=== PATIENT | female | born 1945 | race Caucasian/White ===

== ENCOUNTER 2019-04-02 11:03 | Emergency (ER) | payer MEDICARE ==
[2019-04-02] MEDS ORDERED: Sodium Chloride 0.9% 2.5 ML Syringe FLUSH PRN (11:05)
[2019-04-02] MEDS ORDERED: Sodium Chloride 0.9% 10 ML Syringe FLUSH PRN (11:05)
--- NOTE | 2019-04-02 11:12 | EDM.PDOC ---
ED HPI GENERAL MEDICAL PROBLEM - General Chief Complaint: Chest Pain Stated Complaint: CHEST PAIN , SHORTNESS OF BREATH Time Seen by Provider: 04/02/19 11:05 Source of Information: Reports: Patient History Limitations: Reports: No Limitations - History of Present Illness INITIAL COMMENTS - FREE TEXT/NARRATIVE: History of present illness: []Patient had a left-sided sharp chest pain that lasted about a minute at 6 AM this morning. Patient has not had any recurrent pain and is pain-free. She states she's had these before and this was not any different, however, she recently lost her and is now is with her family who made her come in. She denies any shortness of breath. Patient states her daughter brought her to the [place] last night and she found it exhausting walking in such a large place. Review of systems: As per history of present illness and below otherwise all systems reviewed and negative. Past medical history: As per history of present illness and as reviewed below otherwise noncontributory. Surgical history: As per history of present illness and as reviewed below otherwise noncontributory. Social history: No reported history of drug or alcohol abuse. Family history: As per history of present illness and as reviewed below otherwise noncontributory. Physical exam: General: Well developed, thin in NAD HEENT: Atraumatic, normocephalic, pupils reactive, negative for conjunctival pallor or scleral icterus, mucous membranes moist, throat clear, neck supple, nontender, trachea midline. Lungs: Clear to auscultation, breath sounds equal bilaterally, chest nontender. No reproducible tenderness and no rhonchi Heart: S1S2, regular, negative for clicks, rubs, or JVD. Abdomen: NABS, Soft, nondistended, nontender with no rebound or guarding. Negative for masses or hepatosplenomegaly. Negative for costovertebral tenderness. Pelvis: Stable nontender. Genitourinary: Deferred. Rectal: Deferred. Extremities: Atraumatic, negative for cords or calf pain. Neurovascular unremarkable. Neuro: Awake, alert, oriented. Cranial nerves II through XII unremarkable. Cerebellum unremarkable. Motor and sensory unremarkable throughout. Exam nonfocal. Skin:warm and dry Diagnostics: EKG, chest x-ray, CBC, chemistry, UA, troponin Therapeutics: None ED Course: Stable Impression: Chest pain, UTI Prescriptions: Bactrim Plan: Take meds as directed, follow up with your primary care physician, return to ER if symptoms worsen or change. Definitive disposition and diagnosis as appropriate pending reevaluation and review of above. - Related Data Allergies Allergy/AdvReac Type Severity Reaction Status Date / Time No Known Allergies Allergy Verified 04/02/19 11:12 Home Meds: Home Meds Multivitamin [Multi-Vitamin Daily] 1 tab DAILY 04/02/19 [History] Papaya [Papaya Enzyme] 1 each PO DAILY 04/02/19 [History] Rivaroxaban [Xarelto] 15 mg PO DAILY 04/02/19 [History] Sulfamethoxazole/Trimethoprim [Bactrim Ds Tablet] 1 each PO BID #20 tablet 04/02 [Rx] guaiFENesin [Guaifenesin] 400 mg PO DAILY 04/02/19 [History] ED ROS GENERAL - Review of Systems Review Of Systems: See Below ED EXAM, GENERAL - Physical Exam Exam: See Below Course - Vital Signs Last Recorded V/S: Last Vital Signs Temp 96.9 F 04/02/19 11:10 Pulse 86 04/02/19 11:31 Resp 17 04/02/19 11:31 BP 113/76 04/02/19 11:31 Pulse Ox 96 04/02/19 11:31 - Orders/Labs/Meds Orders: Active Orders 24 hr Category Date Time Status Cardiac Monitoring [RC] . DIRECTED Care 04/02/19 11:05 Active EKG 12 Lead [EKG Documentation Completion] [RC] STAT Care 04/02/19 11:34 Active B-TYPE NATRIURETIC PEPTIDE,BNP [CHEM] Stat Lab 04/02/19 11:20 Received Sodium Chloride 0.9% [Saline Flush] Med 04/02/19 11:05 Active 10 ml FLUSH ASDIRECTED PRN Sodium Chloride 0.9% [Saline Flush] Med 04/02/19 11:05 Active 2.5 ml FLUSH ASDIRECTED PRN Saline Lock Insert [OM.PC] Stat Oth 04/02/19 11:05 Ordered Medication Orders Sodium Chloride (Saline Flush) 10 ml FLUSH ASDIRECTED PRN PRN Reason: Keep Vein Open Sodium Chloride (Saline Flush) 2.5 ml FLUSH ASDIRECTED PRN PRN Reason: Keep Vein Open Labs: Laboratory Tests 04/02/19 04/02/19 04/02/19 Range/Units 11:20 11:20 11:55 WBC 21.71 H (4.0-11.0) K/uL RBC 4.85 (4.30-5.90) M/uL Hgb 15.3 (12.0-16.0) g/dL Hct 46.2 H (36.0-46.0) % MCV 95.3 (80.0-98.0) fL MCH 31.5 (27.0-32.0) pg MCHC 33.1 (31.0-37.0) g/dL RDW Std Deviation 50.3 (28.0-62.0) fl RDW Coeff of Omar 14 (11.0-15.0) % Plt Count 296 (150-400) K/uL MPV 10.60 (7.40-12.00) fL Neut % (Auto) 83.8 H (48.0-80.0) % Lymph % (Auto) 10.2 L (16.0-40.0) % [place] % (Auto) 5.8 (0.0-15.0) % Eos % (Auto) 0.0 (0.0-7.0) % Baso % (Auto) 0.2 (0.0-1.5) % Neut # (Auto) 18.2 H (1.4-5.7) K/uL Lymph # (Auto) 2.2 (0.6-2.4) K/uL [place] # (Auto) 1.3 H (0.0-0.8) K/uL Eos # (Auto) 0.0 (0.0-0.7) K/uL Baso # (Auto) 0.0 (0.0-0.1) K/uL Nucleated RBC % 0.0 /100WBC Nucleated RBCs # 0 K/uL Sodium 141 (136-145) mmol/L Potassium 3.7 (3.5-5.1) mmol/L Chloride 103 (98-107) mmol/L Carbon Dioxide 26.7 (21.0-32.0) mmol/L BUN 24 H (7.0-18.0) mg/dL Creatinine 0.8 (0.6-1.0) mg/dL Est Cr Clr Drug Dosing 34.87 mL/min Estimated GFR (MDRD) > 60.0 ml/min Glucose 150 H (74-106) mg/dL Calcium 9.6 (8.5-10.1) mg/dL Total Bilirubin 1.1 H (0.2-1.0) mg/dL AST 27 (15-37) IU/L ALT 37 (14-63) IU/L Alkaline Phosphatase 86 (46-116) U/L Troponin I < 0.050 (0.000-0.056) ng/mL Total Protein 7.2 (6.4-8.2) g/dL Albumin 3.4 (3.4-5.0) g/dL Globulin 3.8 (2.6-4.0) g/dL Albumin/Globulin Ratio 0.9 (0.9-1.6) Urine Color YELLOW Urine Appearance SLT CLOUDY Urine pH 5.5 (5.0-8.0) Ur Specific [place] >= 1.030 (1.001-1.035) Urine Protein TRACE H (NEGATIVE) mg/dL Urine Glucose (UA) NEGATIVE (NEGATIVE) mg/dL Urine Ketones NEGATIVE (NEGATIVE) mg/dL Urine Occult Blood TRACE-INTACT H (NEGATIVE) Urine Nitrite NEGATIVE (NEGATIVE) Urine Bilirubin SMALL H (NEGATIVE) Urine Ictotest NEGATIVE Urine Urobilinogen 1.0 (<2.0) EU/dL Ur Leukocyte Esterase SMALL H (NEGATIVE) Urine RBC 1-3 (0-2/HPF) Urine WBC 15-20 (0-5/HPF) Ur Epithelial Cells MANY (NONE-FEW) Amorphous Sediment MODERATE (NEGATIVE) Urine Bacteria 1+ H (NEGATIVE) Urine Mucus MODERATE (NONE-MOD) Meds: Medications Generic Name Dose Route Start Last Admin Trade Name Freq PRN Reason Stop Dose Admin Sodium Chloride 10 ml 04/02/19 11:05 Saline Flush FLUSH ASDIRECTED PRN Keep Vein Open Sodium Chloride 2.5 ml 04/02/19 11:05 Saline Flush FLUSH ASDIRECTED PRN Keep Vein Open Departure - Departure Time of Disposition: 12:27 Disposition: Home, Self-Care 01 Condition: Good Clinical Impression: UTI (urinary tract infection) Qualifiers: Urinary tract infection type: site unspecified Hematuria presence: without hematuria Qualified Code(s): N39.0 - Urinary tract infection, site not specified Prescriptions: Sulfamethoxazole/Trimethoprim [Bactrim Ds Tablet] 1 each PO BID #20 tablet Referrals: PCP,Not In Area [Primary Care Provider] - Forms: ED Department Discharge Additional Instructions: The following information is given to patients seen in the emergency department who are being discharged to home. This information is to outline your options for follow-up care. We provide all patients seen in our emergency department with a follow-up referral. The need for follow-up, as well as the timing and circumstances, are variable depending upon the specifics of your emergency department visit. If you don't have a primary care physician on staff, we will provide you with a referral. We always advise you to contact your personal physician following an emergency department visit to inform them of the circumstance of the visit and for follow-up with them and/or the need for any referrals to a consulting specialist. The emergency department will also refer you to a specialist when appropriate. This referral assures that you have the opportunity for follow-up care with a specialist. All of these measure are taken in an effort to provide you with optimal care, which includes your follow-up. Under all circumstances we always encourage you to contact your private physician who remains a resource for coordinating your care. When calling for follow-up care, please make the office aware that this follow-up is from your recent emergency room visit. If for any reason you are refused follow-up, please contact the [facility] Emergency Department at and asked to speak to the emergency department charge nurse. Take meds as directed, follow up with your primary care physician, return to ER if symptoms worsen or change. Drink more fluids. [facility] [address] [place] [id number] - My Orders Last 24 Hours: My Active Orders 04/02/19 11:05 Cardiac Monitoring [RC] . DIRECTED Sodium Chloride 0.9% [Saline Flush] 10 ml FLUSH ASDIRECTED PRN Sodium Chloride 0.9% [Saline Flush] 2.5 ml FLUSH ASDIRECTED PRN Saline Lock Insert [OM.PC] Stat 04/02/19 11:20 B-TYPE NATRIURETIC PEPTIDE,BNP [CHEM] Stat 04/02/19 11:34 EKG 12 Lead [EKG Documentation Completion] [RC] STAT - Assessment/Plan Last 24 Hours: My Active Orders 04/02/19 11:05 Cardiac Monitoring [RC] . DIRECTED Sodium Chloride 0.9% [Saline Flush] 10 ml FLUSH ASDIRECTED PRN Sodium Chloride 0.9% [Saline Flush] 2.5 ml FLUSH ASDIRECTED PRN Saline Lock Insert [OM.PC] Stat 04/02/19 11:20 B-TYPE NATRIURETIC PEPTIDE,BNP [CHEM] Stat 04/02/19 11:34 EKG 12 Lead [EKG Documentation Completion] [RC] STAT
--- NOTE | 2019-04-02 12:11 | CR ---
Pain shortness of breath Portable chest. COMPARISON: No comparison studies are available. Findings: Normal cardiac and mediastinal silhouette. Lungs appear hyperinflated. No acute airspace or interstitial process. No effusion. No pneumothorax. IMPRESSION: 1. No acute pulmonary process. Dictated by Tonya Ibarra MD @ Apr 02 2019 12:09PM Signed by Dr. Tonya Ibarra @ Apr 02 2019 12:10PM
[2019-04-02 12:16] LABS: BLOOD UREA NITROGEN,BUN 24 mg/dL (7.0-18.0); CARBON DIOXIDE,CO2 26.7 mmol/L (21.0-32.0); CHLORIDE,CL 103 mmol/L (98-107); GLUCOSE RANDOM 150 mg/dL (74-106); POTASSIUM,K 3.7 mmol/L (3.5-5.1); SODIUM,NA 141 mmol/L (136-145)
== END 2019-04-02 12:40 | disposition home or self-care (01) ==
LOC: MW.ED 11:03
DX: N39.0 Urinary tract infection, site not specified (principal); Z79.899 Other long term (current) drug therapy
CPT/HCPCS: 36415; 71045; 71045-26; 80053; 81001; 83880; 84484; 85025; 93005; 99283; 99285-25

== ENCOUNTER 2020-11-04 08:19 | Emergency (ER) | payer MEDICARE ==
[2020-11-04] MEDS ORDERED: Sodium Chloride 0.9% 10 ML Syringe FLUSH PRN (08:40)
[2020-11-04] MEDS ORDERED: Sodium Chloride 0.9% 2.5 ML Syringe FLUSH PRN (08:40)
[2020-11-04] MEDS ORDERED: methylPREDNISolone Sodium Succinate 40 MG/1 ML SDV IVPUSH ONE (08:41)
[2020-11-04] MEDS ORDERED: Albuterol HFA 18 Gm Inhaler INH PRN (08:42)
--- NOTE | 2020-11-04 08:46 | EDM.PDOC ---
ED HPI GENERAL MEDICAL PROBLEM - General Chief Complaint: Respiratory Problem Stated Complaint: SOB Time Seen by Provider: 11/04/20 08:24 - History of Present Illness INITIAL COMMENTS - FREE TEXT/NARRATIVE: 75-year-old female with a history of COPD history of A. fib on a blood thinner history of SC in the past who is presenting with shortness of breath. Patient does still smoke she recently completed treatment for lung cancer. She is visiting from [facility]. Over the last 3 days she has felt more short of breath than normal. She does have chronic hypoxic respiratory failure and is on 2 L nasal cannula baseline. Patient been taking her breathing treatments and inhalers they temporarily improve her symptoms but then she continues to feel more short of breath than normal. No chest pain no syncope or near syncope no nausea or vomiting no fever no productive cough. - Related Data Allergies Allergy/AdvReac Type Severity Reaction Status Date / Time No Known Allergies Allergy Verified 11/04/20 08:32 Home Meds: Home Meds Multivitamin [Multi-Vitamin Daily] 1 tab DAILY 04/02/19 [History] Papaya [Papaya Enzyme] 1 each PO DAILY 04/02/19 [History] Rivaroxaban [Xarelto] 15 mg PO DAILY 04/02/19 [History] Sulfamethoxazole/Trimethoprim [Bactrim Ds Tablet] 1 each PO BID #20 tablet 04/02/19 [Rx] guaiFENesin [Guaifenesin] 400 mg PO DAILY 04/02/19 [History] predniSONE 40 mg PO WITHBREAKFAST 4 Days #8 tab 11/04/20 [Rx] Past Medical History - Past Health History Medical/Surgical History: Denies Medical/Surgical History HEENT History: Reports: Hard of Hearing Cardiovascular History: Reports: SC, Other (See Below) Other Cardiovascular History: no stents Respiratory History: Reports: COPD, Other (See Below) Other Respiratory History: on 2liters 02 via nasal cannula; Lung [employer] History: Reports: Hematologic History: Reports: Anticoagulation Therapy, Other (See Below) Other Hematologic History: on xarelto - Past Surgical History HEENT Surgical History: Reports: Other (See Below) Other HEENT Surgeries/Procedures: ear surgery Respiratory Surgical History: Reports: None Social & Family History - Family History Family Medical History: No Pertinent Family History - Tobacco Use Tobacco Use Status *Q: Current Every Day Tobacco User Years of Tobacco use: 55 Packs/Tins Daily: 0.5 - Caffeine Use Caffeine Use: Reports: Coffee - Recreational Drug Use Recreational Drug Use: No ED ROS GENERAL - Review of Systems Review Of Systems: See Below Free Text/Narrative/Comment: General: No fever. Skin: No rash. Eyes: No vision problems. ENT: No sore throat. Neck: No neck stiffness. Respiratory: Per HPI Cardiac: No chest pain. Gastrointestinal: No nausea, vomiting or abdominal pain. Urinary: No dysuria. Musculoskeletal: No myalgias/arthralgias. Neurologic: No headache. ED EXAM, GENERAL - Physical Exam Exam: See Below Free Text/Narrative:: General Appearance: No acute distress, appears comfortable Skin: No rash HEENT: Normocephalic/atraumatic, sclera anicteric, mucous membranes moist Neck: Normal range of motion Chest and Lungs: Normal work of breathing, no tachypnea, prolonged expiratory phase with coarse diffuse expiratory wheezing Cardiovascular: Irregularly irregular rhythm, regular rate, intact distal perfusion, no murmur Abdomen: Soft, non-tender Back: Normal Musculoskeletal: No edema or tenderness Neurologic: Awake, alert, no obvious deficits, moving all extremities Psychiatric: Appropriate, cooperative #1 Interpretation EKG Date: 11/04/20 Time: 08:45 EKG Interpretation Comments: Atrial flutter with a ventricular rate of 73 normal axis and intervals no acute ischemia Course - Vital Signs Last Recorded V/S: Last Vital Signs Temp 96.6 F L 11/04/20 08:27 Pulse 84 11/04/20 08:27 Resp 20 11/04/20 08:27 BP 103/59 L 11/04/20 08:27 Pulse Ox 95 11/04/20 08:27 - Orders/Labs/Meds Orders: Active Orders 24 hr Category Date Time Status EKG Documentation Completion [RC] STAT Care 11/04/20 08:40 Active RT Post Treatment Assessment [RC] Click to Edit Care 11/04/20 08:42 Active RT Pre-Treatment Assessment [RC] Click to Edit Care 11/04/20 08:42 Active Albuterol [Ventolin HFA] Med 11/04/20 09:14 Active 0 gm INH Q2H PRN Sodium Chloride 0.9% [Saline Flush] Med 11/04/20 08:40 Active 10 ml FLUSH ASDIRECTED PRN Sodium Chloride 0.9% [Saline Flush] Med 11/04/20 08:40 Active 2.5 ml FLUSH ASDIRECTED PRN Saline Lock Insert [OM.PC] Stat Oth 11/04/20 08:40 Ordered Medication Orders Albuterol (Albuterol 8 Gm Inhaler) 0 gm INH Q2H PRN PRN Reason: Shortness of Breath Last Admin: 11/04/20 09:37 Dose: 4 puff Documented by: [id number] Sodium Chloride (Sodium Chloride 0.9% 10 Ml Syringe) 10 ml FLUSH ASDIRECTED PRN PRN Reason: Keep Vein Open Last Admin: 11/04/20 09:01 Dose: 10 ml Documented by: [email or web address] Sodium Chloride (Sodium Chloride 0.9% 2.5 Ml Syringe) 2.5 ml FLUSH ASDIRECTED PRN PRN Reason: Keep Vein Open Last Admin: 11/04/20 09:02 Dose: 2.5 ml Documented by: [id number] Labs: Laboratory Tests 11/04/20 11/04/20 11/04/20 Range/Units 08:38 08:38 08:38 WBC 8.68 (4.0-11.0) K/uL RBC 4.82 (4.30-5.90) M/uL Hgb 14.6 (12.0-16.0) g/dL Hct 45.5 (36.0-46.0) % MCV 94.4 (80.0-98.0) fL MCH 30.3 (27.0-32.0) pg MCHC 32.1 (31.0-37.0) g/dL RDW Std Deviation 46.2 (28.0-62.0) fl RDW Coeff of Omar 14 (11.0-15.0) % Plt Count 218 (150-400) K/uL MPV 9.90 (7.40-12.00) fL Neut % (Auto) 81.0 H (48.0-80.0) % Lymph % (Auto) 10.3 L (16.0-40.0) % [place] % (Auto) 7.7 (0.0-15.0) % Eos % (Auto) 0.7 (0.0-7.0) % Baso % (Auto) 0.3 (0.0-1.5) % Neut # (Auto) 7.0 H (1.4-5.7) K/uL Lymph # (Auto) 0.9 (0.6-2.4) K/uL [place] # (Auto) 0.7 (0.0-0.8) K/uL Eos # (Auto) 0.1 (0.0-0.7) K/uL Baso # (Auto) 0.0 (0.0-0.1) K/uL Sodium 142 (136-145) mmol/L Potassium 3.7 (3.5-5.1) mmol/L Chloride 102 (98-107) mmol/L Carbon Dioxide 31.3 (21.0-32.0) mmol/L BUN 15 (7.0-18.0) mg/dL Creatinine 0.7 (0.6-1.0) mg/dL Est Cr Clr Drug Dosing 38.32 mL/min Estimated GFR (MDRD) > 60.0 ml/min Glucose 161 H (74-106) mg/dL Calcium 8.6 (8.5-10.1) mg/dL Total Bilirubin 0.5 (0.2-1.0) mg/dL AST 20 (15-37) IU/L ALT 20 (14-63) IU/L Alkaline Phosphatase 93 (46-116) U/L Troponin I < 0.050 (0.000-0.056) ng/mL B-Natriuretic Peptide 106 H (<100) PG/ML Total Protein 8.3 H (6.4-8.2) g/dL Albumin 3.5 (3.4-5.0) g/dL Globulin 4.8 H (2.6-4.0) g/dL Albumin/Globulin Ratio 0.7 L (0.9-1.6) Influenza Type A RNA (NEGATIVE) Influenza Type B RNA (NEGATIVE) SARS-CoV-2 RNA (ABHI) (NEGATIVE) 11/04/20 Range/Units 08:50 WBC (4.0-11.0) K/uL RBC (4.30-5.90) M/uL Hgb (12.0-16.0) g/dL Hct (36.0-46.0) % MCV (80.0-98.0) fL MCH (27.0-32.0) pg MCHC (31.0-37.0) g/dL RDW Std Deviation (28.0-62.0) fl RDW Coeff of Omar (11.0-15.0) % Plt Count (150-400) K/uL MPV (7.40-12.00) fL Neut % (Auto) (48.0-80.0) % Lymph % (Auto) (16.0-40.0) % [place] % (Auto) (0.0-15.0) % Eos % (Auto) (0.0-7.0) % Baso % (Auto) (0.0-1.5) % Neut # (Auto) (1.4-5.7) K/uL Lymph # (Auto) (0.6-2.4) K/uL [place] # (Auto) (0.0-0.8) K/uL Eos # (Auto) (0.0-0.7) K/uL Baso # (Auto) (0.0-0.1) K/uL Sodium (136-145) mmol/L Potassium (3.5-5.1) mmol/L Chloride (98-107) mmol/L Carbon Dioxide (21.0-32.0) mmol/L BUN (7.0-18.0) mg/dL Creatinine (0.6-1.0) mg/dL Est Cr Clr Drug Dosing mL/min Estimated GFR (MDRD) ml/min Glucose (74-106) mg/dL Calcium (8.5-10.1) mg/dL Total Bilirubin (0.2-1.0) mg/dL AST (15-37) IU/L ALT (14-63) IU/L Alkaline Phosphatase (46-116) U/L Troponin I (0.000-0.056) ng/mL B-Natriuretic Peptide (<100) PG/ML Total Protein (6.4-8.2) g/dL Albumin (3.4-5.0) g/dL Globulin (2.6-4.0) g/dL Albumin/Globulin Ratio (0.9-1.6) Influenza Type A RNA NEGATIVE (NEGATIVE) Influenza Type B RNA NEGATIVE (NEGATIVE) SARS-CoV-2 RNA (ABHI) NEGATIVE (NEGATIVE) Meds: Medications Generic Name Dose Route Start Last Admin Trade Name Freq PRN Reason Stop Dose Admin Albuterol 0 gm 11/04/20 09:14 11/04/20 09:37 Albuterol 8 Gm Inhaler INH 4 puff Q2H PRN Administration Shortness of Breath Sodium Chloride 10 ml 11/04/20 08:40 11/04/20 09:01 Sodium Chloride 0.9% 10 Ml Syringe FLUSH 10 ml ASDIRECTED PRN Administration Keep Vein Open Sodium Chloride 2.5 ml 11/04/20 08:40 11/04/20 09:02 Sodium Chloride 0.9% 2.5 Ml Syringe FLUSH 2.5 ml ASDIRECTED PRN Administration Keep Vein Open Discontinued Medications Generic Name Dose Route Start Last Admin Trade Name Freq PRN Reason Stop Dose Admin Albuterol Confirm 11/04/20 08:54 11/04/20 09:02 Albuterol 8 Gm Inhaler Administered 11/04/20 08:55 Not Given Dose 8 gm INH .STK-MED ONE Methylprednisolone Sodium Succinate 80 mg 11/04/20 08:41 11/04/20 09:00 Methylprednisolone Sodium Succinate 40 Mg/1 Ml Sdv IVPUSH 11/04/20 08:42 80 mg ONETIME ONE Administration Departure - Departure Time of Disposition: 10:11 Disposition: Home, Self-Care 01 Condition: Good Clinical Impression: COPD exacerbation - Discharge Information *PRESCRIPTION DRUG MONITORING PROGRAM REVIEWED*: Not Applicable *COPY OF PRESCRIPTION DRUG MONITORING REPORT IN PATIENT LIZZIE: Not Applicable Prescriptions: predniSONE 40 mg PO WITHBREAKFAST 4 Days #8 tab Instructions: Chronic Obstructive Pulmonary Disease Exacerbation, [id number] Forms: ED Department Discharge Additional Instructions: Your next dose of steroid should be tomorrow morning. Please be sure to do a breathing treatment every 4-6 hours while you are awake. If you start to feel worse or feel like you are needing your breathing treatments more often than thi s please return to the hospital. If you develop a fever chest pain or any other new or worsening symptoms or concern you please return to the ER. The following information is given to patients seen in the emergency department who are being discharged to home. This information is to outline your options for follow-up care. We provide all patients seen in our emergency department with a follow-up referral. The need for follow-up, as well as the timing and circumstances, are variable depending upon the specifics of your emergency department visit. If you don't have a primary care physician on staff, we will provide you with a referral. We always advise you to contact your personal physician following an emergency department visit to inform them of the circumstance of the visit and for follow-up with them and/or the need for any referrals to a consulting specialist. The emergency department will also refer you to a specialist when appropriate. This referral assures that you have the opportunity for follow-up care with a specialist. All of these measure are taken in an effort to provide you with optimal care, which includes your follow-up. Under all circumstances we always encourage you to contact your private physician who remains a resource for coordinating your care. When calling for follow-up care, please make the office aware that this follow-up is from your recent emergency room visit. If for any reason you are refused follow-up, please contact the [facility] Emergency Department at and asked to speak to the emergency department charge nurse. Sepsis Event Note (ED) - Evaluation Sepsis Screening Result: No Definite Risk - Focused Exam Vital Signs: Vital Signs Temp Pulse Resp BP Pulse Ox 11/04/20 08:27 96.6 F L 84 20 103/59 L 95 - My Orders Last 24 Hours: My Active Orders 11/04/20 08:40 EKG Documentation Completion [RC] STAT Sodium Chloride 0.9% [Saline Flush] 10 ml FLUSH ASDIRECTED PRN Sodium Chloride 0.9% [Saline Flush] 2.5 ml FLUSH ASDIRECTED PRN Saline Lock Insert [OM.PC] Stat 11/04/20 08:42 RT Post Treatment Assessment [RC] Click to Edit RT Pre-Treatment Assessment [RC] Click to Edit 11/04/20 09:14 Albuterol [Ventolin HFA] 0 gm INH Q2H PRN - Assessment/Plan Last 24 Hours: My Active Orders 11/04/20 08:40 EKG Documentation Completion [RC] STAT Sodium Chloride 0.9% [Saline Flush] 10 ml FLUSH ASDIRECTED PRN Sodium Chloride 0.9% [Saline Flush] 2.5 ml FLUSH ASDIRECTED PRN Saline Lock Insert [OM.PC] Stat 11/04/20 08:42 RT Post Treatment Assessment [RC] Click to Edit RT Pre-Treatment Assessment [RC] Click to Edit 11/04/20 09:14 Albuterol [Ventolin HFA] 0 gm INH Q2H PRN Assessment:: 75-year-old female presenting with likely COPD exacerbation 4 puffs albuterol Solu-Medrol ordered as well. Chest x-ray EKG Trope relevant blood work to evaluate for signs of CHF signs of pneumonia etc. ACS new SC considered I think less likely. PE considered I think is less likely patient has no new hypoxia. She has no chest pain pleuritic or otherwise. She is on a blood thinner. Covid swab to be taken as well so that we can provide neb treatments if needed. 1010: Patient's labs are good. Her chest x-ray is without infiltrate Covid is negative. Patient feels much improved after 4 puffs of albuterol on the steroids. Her work of breathing is normal she has very minimal end expiratory wheezing. However, given this and her stable vital signs on her home O2 setting I think discharge with follow-up as reasonable. We will give a steroid burst with strict return precautions discussed and understood patient will do an albuterol breathing treatment every 4-6 hours for the next few days.
[2020-11-04] MEDS ORDERED: Albuterol 8 GM Inhaler INH ONE (08:54)
[2020-11-04 09:11] LABS: BLOOD UREA NITROGEN,BUN 15 mg/dL (7.0-18.0); CARBON DIOXIDE,CO2 31.3 mmol/L (21.0-32.0); CHLORIDE,CL 102 mmol/L (98-107); GLUCOSE RANDOM 161 mg/dL (74-106); POTASSIUM,K 3.7 mmol/L (3.5-5.1); SODIUM,NA 142 mmol/L (136-145)
[2020-11-04] MEDS ORDERED: Albuterol 8 GM Inhaler INH PRN (09:14)
[2020-11-04 09:34] LABS: CORONAVIRUS COVID-19 NAA NEGATIVE (NEGATIVE); INFLUENZA A NAA NEGATIVE (NEGATIVE); INFLUENZA B NAA NEGATIVE (NEGATIVE)
--- NOTE | 2020-11-04 09:48 | CR ---
HISTORY: Dyspnea, COPD. TECHNIQUE: One view of the chest. COMPARISON: 04/02/2019. FINDINGS: Cardiac size within normal limits. No pulmonary vascular congestion. There are findings of COPD. No focal lung infiltrate. No pleural effusion or pneumothorax. IMPRESSION: 1. COPD. 2. No focal lung infiltrate. Dictated by Demian Kelsey MD @ Nov 04 2020 9:45AM Signed by Dr. Demian Kelsey @ Nov 04 2020 9:46AM
== END 2020-11-04 10:34 | disposition home or self-care (01) ==
LOC: MW.ED 08:19
DX: J44.1 Chronic obstructive pulmonary disease with (acute) exacerbation (principal); I25.2 Old myocardial infarction; I48.91 Unspecified atrial fibrillation; Z72.0 Tobacco use; Z20.822 Contact with and (suspected) exposure to COVID-19; Z79.01 Long term (current) use of anticoagulants
CPT/HCPCS: 0240U; 36415; 71045; 80053; 83880; 84484; 85025; 93005; 96374; 99285; A9270; J2920; J3535-GY

== ENCOUNTER 2020-11-04 18:17 | Inpatient (IN) | payer MEDICARE ==
[2020-11-04] MEDS ORDERED: Albuterol/Ipratropium 3.0-0.5 MG/3 ML Neb Soln NEB ONE (18:31)
--- NOTE | 2020-11-04 18:32 | EDM.PDOC ---
<Arthur Armando - Last Filed: 11/04/20 19:34> ED HPI GENERAL MEDICAL PROBLEM - General Chief Complaint: Respiratory Problem Stated Complaint: DIFFICULTY BREATHING Time Seen by Provider: 11/04/20 18:18 - History of Present Illness INITIAL COMMENTS - FREE TEXT/NARRATIVE: 75-year-old female seen earlier today for COPD exacerbation with clinical improvement presents again for worsening shortness of breath. Patient has done 3 nebulizer treatments at home since leaving in the late morning. Despite this she has had worsening shortness of breath as well as worsening palpitations. No chest pain no abdominal pain no lightheadedness no syncope or near syncope. - Related Data Allergies Allergy/AdvReac Type Severity Reaction Status Date / Time No Known Allergies Allergy Verified 11/04/20 18:34 Home Meds: Home Meds Memantine [Namenda] 5 mg PO BID 11/04/20 [History] Mirtazapine 15 mg PO QPM 11/04/20 [History] Rivaroxaban [Xarelto] 15 mg PO DAILY 11/04/20 [History] dilTIAZem HCL [Diltiazem ER] 360 mg PO QAM 11/04/20 [History] traMADol [Ultram] 50 mg PO BID PRN 11/04/20 [History] Past Medical History - Past Health History Medical/Surgical History: Denies Medical/Surgical History HEENT History: Reports: Hard of Hearing Cardiovascular History: Reports: [place], Other (See Below) Other Cardiovascular History: no stents Respiratory History: Reports: COPD, Other (See Below) Other Respiratory History: on 2liters 02 via nasal cannula; 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 Skin: No rash. Eyes: No vision problems. ENT: No sore throat. Neck: No neck stiffness. Respiratory: Per HPI Cardiac: Per HPI Gastrointestinal: No nausea, vomiting or abdominal pain. Urinary: No dysuria. Musculoskeletal: No myalgias/arthralgias. Neurologic: No headache. ED EXAM, GENERAL - Physical Exam Exam: See Below Free Text/Narrative:: General Appearance: No acute distress, appears comfortable Skin: No rash HEENT: Normocephalic/atraumatic, sclera anicteric, mucous membranes moist Neck: Normal range of motion Chest and Lungs: Diffuse expiratory wheezing with prolonged expiratory phase Cardiovascular: Tachycardic rate and irregular regular rhythm with intact distal perfusion Abdomen: Soft, non-tender Back: Normal Musculoskeletal: No edema or tenderness Neurologic: Awake, alert, no obvious deficits, moving all extremities Psychiatric: Appropriate, cooperative #1 Interpretation EKG Date: 11/04/20 Time: 19:00 EKG Interpretation Comments: Atrial fibrillation with rapid ventricular response ventricular rate is 149 repolarization abnormality likely rate related. Departure - Departure Disposition: Admitted As Inpatient 65 Clinical Impression: Atrial fibrillation with rapid ventricular response, COPD exacerbation Respiratory failure with hypoxia Qualifiers: Chronicity: acute on chronic Qualified Code(s): J96.21 - Acute and chronic respiratory failure with hypoxia - Discharge Information Referrals: PCP,Not In Area [Primary Care Provider] - Forms: ED Department Discharge - Assessment/Plan Assessment:: 75-year-old female presenting with worsening shortness of breath. Patient now has worsening tachycardia she also has worsening hypoxia she was in the upper 80s on her home 2 L nasal cannula satting. Patient's O2 saturation now in the mid 90s on nasal cannula. Given these worsening vital sign changes the worsening symptoms as well as the fact that the patient urinated here from [place] on a train CT pulmonary angiography will be ordered to definitively evaluate for pulmonary embolism. Following this patient will be admitted for ongoing evaluation and treatment. EKG is pending as well given the tachycardia. Patient may now have coincident A. fib with RVR. EKG does not did demonstrate A. fib with RVR and diltiazem drip is been ordered. CT scan remains pending reevaluation and anticipated admission signed out to Dr. Gabriel <Erik Gabriel - Last Filed: 11/04/20 21:23> ED HPI GENERAL MEDICAL PROBLEM - History of Present Illness INITIAL COMMENTS - FREE TEXT/NARRATIVE: 9:20 PM: Signout received by me at 7 PM. This is a 75-year-old female with a history significant for COPD on 2 L of nasal cannula at baseline who presents ER today secondary to shortness of breath and exacerbation of her COPD. Patient was seen and evaluated and treated in the ED earlier today and had significant improvement and was discharged home. Patient reports that when she went home her breathing deteriorated and required return to the ER. Upon arrival to the ED the patient was noticed to be extremely tachypneic and requiring 4 L for adequate oxygenation. Patient's engine monitor revealed that she was in atrial fibrillation with RVR. Patient required Cardizem bolus of 0.25 mg/kg followed by a Cardizem drip of 5 mg/h. Patient is heart rate currently is varying between 90 bpm and [address] scan of her chest did not reveal any evidence of PE but did show severe emphysema and a right lower lobe nodule. At this time, given the requirement for IV Cardizem drip, the patient will need to be admitted to the ICU to assist with rate control of her atrial fibrillation. Case has been discussed with Dr. Thorpe who agrees with plan as outlined. Critical Care: The high probability of sudden, clinically significant deterioration in the patient's condition required the highest level of my preparedness to intervene urgently. The services I provided to this patient were to treat and/or prevent clinically significant deterioration. Services included the following: chart data review, reviewing nursing notes and/or old charts, documentation time, pci security consultant collaboration regarding findings and treatment options, medication orders and management, direct patient care, vital sign assessments and ordering, interpreting and reviewing diagnostic studies/lab tests. Aggregate critical care time includes only time during which I was engaged inwork directly related to the patient's care, as described above, whether at the bedside or elsewhere in the Emergency Department. It did not include time spent performing other reported procedures or the services of residents, students, nurses or physician assistants. Critical Care Time: 35 minutes Course - Vital Signs Last Recorded V/S: Last Vital Signs Temp 96.7 F L 11/04/20 18:41 Pulse 92 11/04/20 21:09 Resp 16 11/04/20 19:29 BP 133/73 11/04/20 21:09 Pulse Ox 94 L 11/04/20 19:29 - Orders/Labs/Meds Orders: Active Orders 24 hr Category Date Time Status Patient Status [ADT] Routine ADT 11/04/20 21:19 Ordered EKG Documentation Completion [RC] STAT Care 11/04/20 18:31 Active RT Aerosol Therapy [RC] ASDIRECTED Care 11/04/20 18:31 Active Diltiazem [Cardizem] 100 mg Med 11/04/20 19:00 Active Sodium Chloride 0.9% [Normal Saline] 100 ml IV NOW Medication Orders Diltiazem HCl 100 mg/ Sodium (Chloride) 100 mls @ 5 mls/hr IV NOW [facility]; Protocol Last Admin: 11/04/20 19:30 Dose: 5 mg/hr, 5 mls/hr Documented by: GILL Meds: Medications Generic Name Dose Route Start Last Admin Trade Name Freq PRN Reason Stop Dose Admin Diltiazem HCl 100 mg/ Sodium 100 mls @ 5 mls/hr 11/04/20 19:00 11/04/20 19:30 Chloride IV 5 mg/hr NOW UTE 5 mls/hr Administration Protocol 5 MG/HR Discontinued Medications Generic Name Dose Route Start Last Admin Trade Name Freq PRN Reason Stop Dose Admin Albuterol/Ipratropium 3 ml 11/04/20 18:31 11/04/20 18:41 Albuterol/Ipratropium 3.0-0.5 Mg/3 Ml Neb Soln NEB 11/04/20 18:32 3 ml ONETIME ONE Administration Diltiazem HCl 10 mg 11/04/20 18:58 11/04/20 19:28 Diltiazem 25 Mg/5 Ml Sdv IVPUSH 11/04/20 18:59 10 mg ONETIME ONE Administration Iopamidol 100 ml 11/04/20 20:30 11/04/20 20:31 Iopamidol 755 Mg/Ml 500 Ml Multipack Bottle IVPUSH 11/04/20 20:31 100 ml ONETIME STA Administration Departure - Departure Time of Disposition: 21:22 Condition: Good Sepsis Event Note (ED) - Focused Exam Vital Signs: Vital Signs Temp Pulse Resp BP Pulse Ox 11/04/20 21:09 92 133/73 11/04/20 19:53 116 H 11/04/20 19:29 127 H 16 124/63 94 L 11/04/20 18:41 96.7 F L 136 H 24 H 133/80 84 L - My Orders Last 24 Hours: My Active Orders 11/04/20 21:19 Patient Status [ADT] Routine - Assessment/Plan Last 24 Hours: My Active Orders 11/04/20 21:19 Patient Status [ADT] Routine
[2020-11-04] MEDS ORDERED: Diltiazem 25 MG/5 ML SDV IVPUSH ONE (18:58)
[2020-11-04] MEDS ORDERED: Diltiazem 100 MG in Sodium Chloride 0.9% 100 ML IV SCH (19:00)
[2020-11-04] MEDS ORDERED: Iopamidol 755 MG/ML 500 ML Multipack Bottle IVPUSH STA (20:30)
--- NOTE | 2020-11-04 21:12 | CT ---
INDICATION: Tachycardia, shortness of breath, history of COPD TECHNIQUE: CT chest pulmonary angiogram acquired with IV contrast. Approximately 100 cc cc of Isovue 370 contrast was administered intravenously. Multiplanar/MIP reformats were created. COMPARISON: Chest x-ray earlier same day 11/04/2018 and 04/02/2019 FINDINGS: The heart is normal in size. There is no bowing of the intraventricular septum. The main pulmonary artery is normal in caliber.There are no filling defects within the pulmonary arteries to suggest a pulmonary embolus. There is atherosclerotic calcification of the aortic arch. There is a mildly prominent right hilar lymph node which measures 1.0 x 0.9 cm. There is a possible mildly prominent precarinal lymph node measuring 1.3 x 1.0 cm. There is severe centrilobular emphysema. There is a spiculated nodule within the left lower lobe periphery, measuring 1.0 x 0.8 cm (series 402, image 126). There is a 0.7 cm ground-glass nodule in the right lower lobe posteriorly (series 402, image 131). There is mild diffuse bronchial wall thickening with areas of mucous plugging. The visualized portions of the upper abdomen are unremarkable. There are mild degenerative changes of the thoracic spine. IMPRESSION: 1. Negative for pulmonary embolus. 2. Spiculated left lower lobe nodule, measuring 1.0 cm is suspicious for malignancy. Recommend correlation with PET-CT or tissue sampling. 3. Right lower lobe ground-glass nodule, measuring 0.7 cm. 4. Severe centrilobular emphysema. Please note that all CT scans at this facility use dose modulation, iterative reconstruction, and/or weight-based dosing when appropriate to reduce radiation dose to as low as reasonably achievable. Dictated by Judith Poole MD @ Nov 04 2020 8:57PM Signed by Dr. Judith Poole @ Nov 04 2020 9:12PM
--- NOTE | 2020-11-04 23:05 | PCM.HP.2 ---
H&P History of Present Illness - General Date of Service: 11/04/20 Admit Problem/Dx: Admission Diagnosis/Problem Admission Diagnosis/Problem Atrial fibrillation with rapid ventricular response - History of Present Illness Initial Comments - Free Text/Narative: 75 yo female with pmh of COPD, atrial fibrillation on anticoagulation, and lung cancer who presents to the ED twice today with complaints of shortness of breath and palpitations. Patient denies any fevers, cough, or chest pain. Patient reports one day of wheezing. She does not feel that bad but reports her daughter wanted her to come to the ED. She just moved to [place] from [place]. She says she took all her medications this morning. She uses 2 L of [place] O2 at home. In the ED she was noted to be in atrial fibrillation with RVR and was started on a Diltiazem drip. - Related Data Allergies/Adverse Reactions: Allergies Allergy/AdvReac Type Severity Reaction Status Date / Time No Known Allergies Allergy Verified 11/04/20 23:05 Home Medications: Home Meds Memantine [Namenda] 5 mg PO BID 11/04/20 [History] Mirtazapine 15 mg PO QPM 11/04/20 [History] Rivaroxaban [Xarelto] 15 mg PO DAILY 11/04/20 [History] dilTIAZem HCL [Diltiazem ER] 360 mg PO QAM 11/04/20 [History] traMADol [Ultram] 50 mg PO BID PRN 11/04/20 [History] Past Medical History - Past Health History Medical/Surgical History: Denies Medical/Surgical History HEENT History: Reports: Hard of Hearing Cardiovascular History: Reports: [place], Other (See Below) Other Cardiovascular History: no stents Respiratory History: Reports: COPD, Other (See Below) Other Respiratory History: on 2liters 02 via nasal cannula; 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: Hematologic History: Reports: Anticoagulation Therapy, Other (See Below) Other Hematologic History: on xarelto - Infectious Disease History Infectious Disease History: Reports: Chicken Pox, Measles, Rubella - Past Surgical History HEENT Surgical History: Reports: Other (See Below) Other HEENT Surgeries/Procedures: ear surgery Respiratory Surgical History: Reports: None Social & Family History - Family History Family Medical History: No Pertinent Family History - Caffeine Use Caffeine Use: Reports: Coffee H&P Review of Systems - Review of Systems: Review Of Systems: Comprehensive ROS is negative, except as noted in HPI. Exam - Exam Exam: See Below - Vital Signs Vital Signs: Last Vital Signs Temp 35.9 C L 11/04/20 18:41 Pulse 92 11/04/20 21:09 Resp 16 11/04/20 19:29 BP 133/73 11/04/20 21:09 Pulse Ox 94 L 11/04/20 19:29 Weight: 39.916 kg - Exam General: Alert, Oriented HEENT: Mucosa Moist & [place] Lungs: Clear to Auscultation, Normal Respiratory Effort Cardiovascular: Regular Rhythm, Irregular Rhythm GI/Abdominal Exam: Normal Bowel Sounds, Soft, Non-Tender Extremities: Non-Tender, No Pedal Edema Skin: Warm, Dry, Intact Neurological: Cranial Nerves Intact - Patient Data Result Diagrams: 11/05/20 05:00 11/05/20 05:00 Sepsis Event Note - Evaluation Sepsis Screening Result: No Definite Risk - Focused Exam Vital Signs: Vital Signs Temp Pulse Resp BP Pulse Ox 11/04/20 21:09 92 133/73 11/04/20 19:53 116 H 11/04/20 19:29 127 H 16 124/63 94 L 11/04/20 18:41 35.9 C L 136 H 24 H 133/80 84 L Problem List Initiated/Reviewed/Updated: Yes Orders Last 24hrs: Active Orders 24 hr Category Date Time Status Patient Status [ADT] Routine ADT 11/04/20 21:19 Active EKG Documentation Completion [RC] STAT Care 11/04/20 18:31 Active RT Aerosol Therapy [RC] ASDIRECTED Care 11/04/20 18:31 Active Diltiazem [Cardizem] 100 mg Med 11/04/20 19:00 Active Sodium Chloride 0.9% [Normal Saline] 100 ml IV NOW Medication Orders Diltiazem HCl 100 mg/ Sodium (Chloride) 100 mls @ 5 mls/hr IV NOW [facility]; Protocol Last Admin: 11/04/20 19:30 Dose: 5 mg/hr, 5 mls/hr Documented by: GILL Assessment/Plan Comment:: 75 yo female admitted for COPD exacerbation and atrial fibrillation with RVR. Atrial fibrillation with RVR: Patient is rate controlled on Diltiazem drip, will give additional PO diltiazem and wean drip, resume xarelto COPD exacerbation: Will place on prednisone, and duonebs. CT scan reported left lower lung nodule suspicious for malignancy. I told p atient of this finding and patient reports she has lung cancer and has been treated with chemotherapy and radiation therapy recently.
[2020-11-04] MEDS ORDERED: traMADol 50 MG Tab PO PRN (23:08)
[2020-11-04] MEDS ORDERED: Diltiazem IR 30 MG Tab PO ONE (23:10)
[2020-11-04] MEDS ORDERED: Azithromycin 250 MG Tab PO ONE (23:12)
[2020-11-04] MEDS: Albuterol/Ipratropium 3.0-0.5 MG/3 ML Neb Soln NEB SCH (23:24)
--- NOTE | 2020-11-04 23:51 | PN ---
THC Physician - Brief Progress ZihaHPAZYSGZO85/17/2021 23:45[facility] Jasso mariuszDemetris, ROMI - CAROLINE (ESTELA) - CAROLINE ICUMIREILLEANDREINAKalyanDate of Service 11/04/2020 23:45HPI/Events of Note eICU Admission [id number] F admitted to ICU with afib RVR. Started on cardizem gtt for rate contr olAlready on xeralto at homeOn CameraNADHR 90-99 irreg irregBP 143/74 RR 24 Sats 98%eICU Recommendati ons:Agree with transitioning to PO CCB and ongoing rate controlCont home anticoagulationThank you for allowing us to participate in the care of your patient.Interventions Major-Arrhythmia - evaluation a nd managementIntermediate-Communication with other healthcare providers and/or familyElectronically S igned by: KHALIDA TRAYLOR) on 11/04/2020 23:51
[2020-11-05 05:24] LABS: BLOOD UREA NITROGEN,BUN 20 mg/dL (7.0-18.0); CARBON DIOXIDE,CO2 32.1 mmol/L (21.0-32.0); CHLORIDE,CL 106 mmol/L (98-107); GLUCOSE RANDOM 129 mg/dL (74-106); POTASSIUM,K 3.9 mmol/L (3.5-5.1); SODIUM,NA 144 mmol/L (136-145)
[2020-11-05] MEDS: Albuterol/Ipratropium 3.0-0.5 MG/3 ML Neb Soln NEB SCH ×3 (06:07→17:33)
[2020-11-05] MEDS: Rivaroxaban 15 MG Tab PO SCH (08:58)
[2020-11-05] MEDS: Diltiazem 180 MG Cap.CD PO SCH (08:58)
[2020-11-05] MEDS: predniSONE 20 MG Tab PO SCH (08:58)
[2020-11-05] MEDS: Pantoprazole 40 MG Tab.CR PO SCH (08:58)
[2020-11-05] MEDS ORDERED: Albuterol/Ipratropium 3.0-0.5 MG/3 ML Neb Soln NEB PRN (14:47)
--- NOTE | 2020-11-05 14:50 | PCM.PN ---
- General Info Date of Service: 11/05/20 - Review of Systems Systems Review Comment:: feeling better, short of breath while walking to bathroom, no chest pain. - Patient Data Vitals - Most Recent: Last Vital Signs Temp 37.2 C 11/05/20 13:00 Pulse 92 11/04/20 21:09 Resp 24 H 11/05/20 14:00 BP 102/48 L 11/05/20 14:00 Pulse Ox 92 L 11/05/20 14:00 Weight - Most Recent: 38.102 kg I&O - Last 24 Hours: Intake & Output 11/04/20 11/05/20 11/05/20 22:59 06:59 14:59 Intake Total 450 Output Total 680 Balance -230 Lab Results Last 24 Hours: Laboratory Results - last 24 hr 11/05/20 11/05/20 Range/Units 05:00 05:00 WBC 11.38 H (4.0-11.0) K/uL RBC 4.22 L (4.30-5.90) M/uL Hgb 12.7 (12.0-16.0) g/dL Hct 40.1 (36.0-46.0) % MCV 95.0 (80.0-98.0) fL MCH 30.1 (27.0-32.0) pg MCHC 31.7 (31.0-37.0) g/dL RDW Std Deviation 49.1 (28.0-62.0) fl RDW Coeff of Omar 14 (11.0-15.0) % Plt Count 242 (150-400) K/uL MPV 10.30 (7.40-12.00) fL Neut % (Auto) 85.9 H (48.0-80.0) % Lymph % (Auto) 6.0 L (16.0-40.0) % [place] % (Auto) 8.0 (0.0-15.0) % Eos % (Auto) 0.0 (0.0-7.0) % Baso % (Auto) 0.1 (0.0-1.5) % Neut # (Auto) 9.8 H (1.4-5.7) K/uL Lymph # (Auto) 0.7 (0.6-2.4) K/uL [place] # (Auto) 0.9 H (0.0-0.8) K/uL Eos # (Auto) 0.0 (0.0-0.7) K/uL Baso # (Auto) 0.0 (0.0-0.1) K/uL Nucleated RBC % 0.0 /100WBC Nucleated RBCs # 0 K/uL Sodium 144 (136-145) mmol/L Potassium 3.9 (3.5-5.1) mmol/L Chloride 106 (98-107) mmol/L Carbon Dioxide 32.1 H (21.0-32.0) mmol/L BUN 20 H (7.0-18.0) mg/dL Creatinine 0.6 (0.6-1.0) mg/dL Est Cr Clr Drug Dosing 47.87 mL/min Estimated GFR (MDRD) > 60.0 ml/min Glucose 129 H (74-106) mg/dL Calcium 8.5 (8.5-10.1) mg/dL Magnesium 2.2 (1.8-2.4) mg/dL Med Orders - Current: Current Medications Albuterol/Ipratropium (Albuterol/Ipratropium 3.0-0.5 Mg/3 Ml Neb Soln) 3 ml NEB Q6HRRT [facility] Last Admin: 11/05/20 12:23 Dose: 3 ml Documented by: Albuterol/Ipratropium (Albuterol/Ipratropium 3.0-0.5 Mg/3 Ml Neb Soln) 3 ml NEB Q2H PRN PRN Reason: Shortness of Breath Albuterol/Ipratropium (Albuterol/Ipratropium 3.0-0.5 Mg/3 Ml Neb Soln) 3 ml NEB Q2H PRN PRN Reason: Wheezing Diltiazem HCl (Diltiazem 180 Mg Cap.Cd) 360 mg PO QAM [facility] Last Admin: 11/05/20 08:58 Dose: 360 mg Documented by: Diltiazem HCl 100 mg/ Sodium (Chloride) 100 mls @ 5 mls/hr IV NOW [facility]; Protocol Last Titration: 11/05/20 01:43 Dose: 0 mg/hr, 0 mls/hr Documented by: Pantoprazole Sodium (Pantoprazole 40 Mg Tab.Cr) 40 mg PO DAILY [facility] Last Admin: 11/05/20 08:58 Dose: 40 mg Documented by: Prednisone (Prednisone 20 Mg Tab) 40 mg PO WITHBREAKFAST [facility] Last Admin: 11/05/20 08:58 Dose: 40 mg Documented by: Rivaroxaban (Rivaroxaban 15 Mg Tab) 15 mg PO DAILY [facility] Last Admin: 11/05/20 08:58 Dose: 15 mg Documented by: Tramadol HCl (Tramadol 50 Mg Tab) 50 mg PO BID PRN PRN Reason: Pain Discontinued Medications Albuterol/Ipratropium (Albuterol/Ipratropium 3.0-0.5 Mg/3 Ml Neb Soln) 3 ml NEB ONETIME ONE Stop: 11/04/20 18:32 Last Admin: 11/04/20 18:41 Dose: 3 ml Documented by: Azithromycin (Azithromycin 250 Mg Tab) 500 mg PO Q24H ONE Stop: 11/04/20 23:13 Last Admin: 11/04/20 23:24 Dose: 500 mg Documented by: Diltiazem HCl (Diltiazem 25 Mg/5 Ml Sdv) 10 mg IVPUSH ONETIME ONE Stop: 11/04/20 18:59 Last Admin: 11/04/20 19:28 Dose: 10 mg Documented by: Diltiazem HCl (Diltiazem Ir 30 Mg Tab) 30 mg PO ONETIME ONE Stop: 11/04/20 23:11 Last Admin: 11/04/20 23:24 Dose: 30 mg Documented by: Iopamidol (Iopamidol 755 Mg/Ml 500 Ml Multipack Bottle) 100 ml IVPUSH ONETIME STA Stop: 11/04/20 20:31 Last Admin: 11/04/20 20:31 Dose: 100 ml Documented by: - Exam General: Alert, Cooperative Lungs: Normal Respiratory Effort, Wheezing Cardiovascular: Regular Rate, Regular Rhythm Extremities: Non-Tender, No Pedal Edema Skin: Warm, Dry, Intact Neurological: No New Focal Deficit - Patient Data Lab Results Last 24 hrs: Laboratory Results - last 24 hr 11/05/20 11/05/20 Range/Units 05:00 05:00 WBC 11.38 H (4.0-11.0) K/uL RBC 4.22 L (4.30-5.90) M/uL Hgb 12.7 (12.0-16.0) g/dL Hct 40.1 (36.0-46.0) % MCV 95.0 (80.0-98.0) fL MCH 30.1 (27.0-32.0) pg MCHC 31.7 (31.0-37.0) g/dL RDW Std Deviation 49.1 (28.0-62.0) fl RDW Coeff of Omar 14 (11.0-15.0) % Plt Count 242 (150-400) K/uL MPV 10.30 (7.40-12.00) fL Neut % (Auto) 85.9 H (48.0-80.0) % Lymph % (Auto) 6.0 L (16.0-40.0) % [place] % (Auto) 8.0 (0.0-15.0) % Eos % (Auto) 0.0 (0.0-7.0) % Baso % (Auto) 0.1 (0.0-1.5) % Neut # (Auto) 9.8 H (1.4-5.7) K/uL Lymph # (Auto) 0.7 (0.6-2.4) K/uL [place] # (Auto) 0.9 H (0.0-0.8) K/uL Eos # (Auto) 0.0 (0.0-0.7) K/uL Baso # (Auto) 0.0 (0.0-0.1) K/uL Nucleated RBC % 0.0 /100WBC Nucleated RBCs # 0 K/uL Sodium 144 (136-145) mmol/L Potassium 3.9 (3.5-5.1) mmol/L Chloride 106 (98-107) mmol/L Carbon Dioxide 32.1 H (21.0-32.0) mmol/L BUN 20 H (7.0-18.0) mg/dL Creatinine 0.6 (0.6-1.0) mg/dL Est Cr Clr Drug Dosing 47.87 mL/min Estimated GFR (MDRD) > 60.0 ml/min Glucose 129 H (74-106) mg/dL Calcium 8.5 (8.5-10.1) mg/dL Magnesium 2.2 (1.8-2.4) mg/dL Result Diagrams: 11/05/20 05:00 11/05/20 05:00 Sepsis Event Note - Evaluation Sepsis Screening Result: No Definite Risk - Focused Exam Vital Signs: Vital Signs Temp Resp BP Pulse Ox 11/05/20 14:00 24 H 102/48 L 92 L 11/05/20 13:00 37.2 C 21 H 91/52 L 93 L 11/05/20 12:20 89 L 11/05/20 12:10 23 H 85 L 11/05/20 12:00 37.6 C 21 H 143/67 H 91 L 11/05/20 11:00 24 H 116/54 L 94 L 11/05/20 10:00 23 H 120/51 L 98 11/05/20 09:00 24 H 130/75 95 11/05/20 08:00 37.2 C 17 127/62 94 L 11/05/20 07:00 25 H 106/55 L 98 11/05/20 06:00 21 H 114/58 L 91 L 11/05/20 05:00 24 H 111/73 92 L 11/05/20 04:00 36.9 C 25 H 118/61 94 L 11/05/20 03:00 23 H 102/50 L 94 L - Problem List Review Problem List Initiated/Reviewed/Updated: Yes - My Orders Last 24 Hours: My Active Orders 11/04/20 23:08 traMADol [Ultram] 50 mg PO BID PRN 11/04/20 23:10 Up ad Xiao [RC] ASDIRECTED Resuscitation Status Routine 11/04/20 23:11 Antiembolic Devices [RC] PER UNIT ROUTINE Oxygen Therapy [RC] PRN RT Aerosol Therapy [RC] ASDIRECTED VTE/DVT Education [RC] PER UNIT ROUTINE Vital Signs [RC] Q1H Sequential Compression Device [OM.PC] Per Unit Routine 11/05/20 00:00 Albuterol/Ipratropium [DuoNeb 3.0-0.5 MG/3 ML] 3 ml NEB Q6HRRT 11/05/20 08:00 predniSONE 40 mg PO WITHBREAKFAST 11/05/20 09:00 Diltiazem [Cardizem CD] 360 mg PO QAM Pantoprazole [ProTONIX] 40 mg PO DAILY Rivaroxaban [Xarelto] 15 mg PO DAILY 11/05/20 14:37 Albuterol/Ipratropium [DuoNeb 3.0-0.5 MG/3 ML] 3 ml NEB Q2H PRN 11/05/20 14:40 RT Aerosol Therapy [RC] ASDIRECTED 11/05/20 14:47 RT Aerosol Therapy [RC] ASDIRECTED Albuterol/Ipratropium [DuoNeb 3.0-0.5 MG/3 ML] 3 ml NEB Q2H PRN 11/05/20 14:48 Transfer Patient (Change bed) [ADT] Routine Cardiac Monitoring [RC] . DIRECTED 11/06/20 05:11 BASIC METABOLIC PANEL,BMP [CHEM] AM CBC WITH AUTO DIFF [HEME] AM - Plan Plan:: 75 yo female admitted for COPD exacerbation and atrial fibrillation with RVR. Atrial fibrillation with RVR: patient has converted to normal sinus rhythm. We will continue oral diltiazem and xarelto COPD exacerbation: Will continue prednisone, and duonebs. dispo: likely in 1-2 days. Will transfer to medical floor.
[2020-11-05] MEDS: Albuterol/Ipratropium 3.0-0.5 MG/3 ML Neb Soln NEB PRN ×2 (15:58→20:15)
[2020-11-06] MEDS: Albuterol/Ipratropium 3.0-0.5 MG/3 ML Neb Soln NEB SCH ×6 (00:25→21:16)
[2020-11-06] MEDS: Albuterol/Ipratropium 3.0-0.5 MG/3 ML Neb Soln NEB PRN ×2 (03:07→15:54)
[2020-11-06 05:47] LABS: BLOOD UREA NITROGEN,BUN 31 mg/dL (7.0-18.0); CARBON DIOXIDE,CO2 32.9 mmol/L (21.0-32.0); CHLORIDE,CL 106 mmol/L (98-107); GLUCOSE RANDOM 120 mg/dL (74-106); POTASSIUM,K 3.9 mmol/L (3.5-5.1); SODIUM,NA 144 mmol/L (136-145)
[2020-11-06] MEDS: Pantoprazole 40 MG Tab.CR PO SCH (08:26)
[2020-11-06] MEDS: Diltiazem 180 MG Cap.CD PO SCH (08:26)
[2020-11-06] MEDS: Rivaroxaban 15 MG Tab PO SCH (08:26)
[2020-11-06] MEDS: predniSONE 20 MG Tab PO SCH (08:26)
--- NOTE | 2020-11-06 09:56 | PCM.PN ---
- General Info Date of Service: 11/06/20 - Review of Systems Systems Review Comment:: patient is feeling better, shortness of breath has improved, needs assistance with walking. - Patient Data Vitals - Most Recent: Last Vital Signs Temp 36.9 C 11/06/20 08:11 Pulse 77 11/06/20 08:11 Resp 20 11/06/20 08:11 BP 124/63 11/06/20 08:11 Pulse Ox 94 L 11/06/20 08:11 Weight - Most Recent: 38.102 kg I&O - Last 24 Hours: Intake & Output 11/05/20 11/06/20 11/06/20 22:59 06:59 14:59 Intake Total 620 680 Output Total 600 720 Balance 20 -40 Lab Results Last 24 Hours: Laboratory Results - last 24 hr 11/06/20 11/06/20 Range/Units 05:07 05:07 WBC 12.69 H (4.0-11.0) K/uL RBC 3.93 L (4.30-5.90) M/uL Hgb 12.1 (12.0-16.0) g/dL Hct 38.0 (36.0-46.0) % MCV 96.7 (80.0-98.0) fL MCH 30.8 (27.0-32.0) pg MCHC 31.8 (31.0-37.0) g/dL RDW Std Deviation 51.2 (28.0-62.0) fl RDW Coeff of Omar 14 (11.0-15.0) % Plt Count 248 (150-400) K/uL MPV 10.30 (7.40-12.00) fL Neut % (Auto) 81.1 H (48.0-80.0) % Lymph % (Auto) 9.4 L (16.0-40.0) % [place] % (Auto) 9.4 (0.0-15.0) % Eos % (Auto) 0.0 (0.0-7.0) % Baso % (Auto) 0.1 (0.0-1.5) % Neut # (Auto) 10.3 H (1.4-5.7) K/uL Lymph # (Auto) 1.2 (0.6-2.4) K/uL [place] # (Auto) 1.2 H (0.0-0.8) K/uL Eos # (Auto) 0.0 (0.0-0.7) K/uL Baso # (Auto) 0.0 (0.0-0.1) K/uL Nucleated RBC % 0.0 /100WBC Nucleated RBCs # 0 K/uL Sodium 144 (136-145) mmol/L Potassium 3.9 (3.5-5.1) mmol/L Chloride 106 (98-107) mmol/L Carbon Dioxide 32.9 H (21.0-32.0) mmol/L BUN 31 H (7.0-18.0) mg/dL Creatinine 0.8 (0.6-1.0) mg/dL Est Cr Clr Drug Dosing 35.98 mL/min Estimated GFR (MDRD) > 60.0 ml/min Glucose 120 H (74-106) mg/dL Calcium 8.6 (8.5-10.1) mg/dL Med Orders - Current: Current Medications Albuterol/Ipratropium (Albuterol/Ipratropium 3.0-0.5 Mg/3 Ml Neb Soln) 3 ml NEB Q2H PRN PRN Reason: Shortness of Breath Last Admin: 11/06/20 03:07 Dose: 3 ml Documented by: Albuterol/Ipratropium (Albuterol/Ipratropium 3.0-0.5 Mg/3 Ml Neb Soln) 3 ml NEB Q4HRRT [facility] Diltiazem HCl (Diltiazem 180 Mg Cap.Cd) 360 mg PO QAM [facility] Last Admin: 11/06/20 08:26 Dose: 360 mg Documented by: Pantoprazole Sodium (Pantoprazole 40 Mg Tab.Cr) 40 mg PO DAILY [facility] Last Admin: 11/06/20 08:26 Dose: 40 mg Documented by: Prednisone (Prednisone 20 Mg Tab) 40 mg PO WITHBREAKFAST [facility] Last Admin: 11/06/20 08:26 Dose: 40 mg Documented by: Rivaroxaban (Rivaroxaban 15 Mg Tab) 15 mg PO DAILY [facility] Last Admin: 11/06/20 08:26 Dose: 15 mg Documented by: Tramadol HCl (Tramadol 50 Mg Tab) 50 mg PO BID PRN PRN Reason: Pain Discontinued Medications Albuterol/Ipratropium (Albuterol/Ipratropium 3.0-0.5 Mg/3 Ml Neb Soln) 3 ml NEB ONETIME ONE Stop: 11/04/20 18:32 Last Admin: 11/04/20 18:41 Dose: 3 ml Documented by: Albuterol/Ipratropium (Albuterol/Ipratropium 3.0-0.5 Mg/3 Ml Neb Soln) 3 ml NEB Q6HRRT [facility] Last Admin: 11/06/20 05:59 Dose: 3 ml Documented by: Albuterol/Ipratropium (Albuterol/Ipratropium 3.0-0.5 Mg/3 Ml Neb Soln) 3 ml NEB Q2H PRN PRN Reason: Wheezing Azithromycin (Azithromycin 250 Mg Tab) 500 mg PO Q24H ONE Stop: 11/04/20 23:13 Last Admin: 11/04/20 23:24 Dose: 500 mg Documented by: Diltiazem HCl (Diltiazem 25 Mg/5 Ml Sdv) 10 mg IVPUSH ONETIME ONE Stop: 11/04/20 18:59 Last Admin: 11/04/20 19:28 Dose: 10 mg Documented by: Diltiazem HCl (Diltiazem Ir 30 Mg Tab) 30 mg PO ONETIME ONE Stop: 11/04/20 23:11 Last Admin: 11/04/20 23:24 Dose: 30 mg Documented by: Diltiazem HCl 100 mg/ Sodium (Chloride) 100 mls @ 5 mls/hr IV NOW [facility]; Protocol Last Titration: 11/05/20 01:43 Dose: 0 mg/hr, 0 mls/hr Documented by: Iopamidol (Iopamidol 755 Mg/Ml 500 Ml Multipack Bottle) 100 ml IVPUSH ONETIME STA Stop: 11/04/20 20:31 Last Admin: 11/04/20 20:31 Dose: 100 ml Documented by: - Exam General: Alert, Oriented Neck: Supple Lungs: Clear to Auscultation, Wheezing GI/Abdominal Exam: Soft, Non-Tender, No Distention Extremities: Non-Tender, No Pedal Edema Skin: Warm, Dry, Intact - Patient Data Lab Results Last 24 hrs: Laboratory Results - last 24 hr 11/06/20 11/06/20 Range/Units 05:07 05:07 WBC 12.69 H (4.0-11.0) K/uL RBC 3.93 L (4.30-5.90) M/uL Hgb 12.1 (12.0-16.0) g/dL Hct 38.0 (36.0-46.0) % MCV 96.7 (80.0-98.0) fL MCH 30.8 (27.0-32.0) pg MCHC 31.8 (31.0-37.0) g/dL RDW Std Deviation 51.2 (28.0-62.0) fl RDW Coeff of Omar 14 (11.0-15.0) % Plt Count 248 (150-400) K/uL MPV 10.30 (7.40-12.00) fL Neut % (Auto) 81.1 H (48.0-80.0) % Lymph % (Auto) 9.4 L (16.0-40.0) % [place] % (Auto) 9.4 (0.0-15.0) % Eos % (Auto) 0.0 (0.0-7.0) % Baso % (Auto) 0.1 (0.0-1.5) % Neut # (Auto) 10.3 H (1.4-5.7) K/uL Lymph # (Auto) 1.2 (0.6-2.4) K/uL [place] # (Auto) 1.2 H (0.0-0.8) K/uL Eos # (Auto) 0.0 (0.0-0.7) K/uL Baso # (Auto) 0.0 (0.0-0.1) K/uL Nucleated RBC % 0.0 /100WBC Nucleated RBCs # 0 K/uL Sodium 144 (136-145) mmol/L Potassium 3.9 (3.5-5.1) mmol/L Chloride 106 (98-107) mmol/L Carbon Dioxide 32.9 H (21.0-32.0) mmol/L BUN 31 H (7.0-18.0) mg/dL Creatinine 0.8 (0.6-1.0) mg/dL Est Cr Clr Drug Dosing 35.98 mL/min Estimated GFR (MDRD) > 60.0 ml/min Glucose 120 H (74-106) mg/dL Calcium 8.6 (8.5-10.1) mg/dL Result Diagrams: 11/06/20 05:07 11/06/20 05:07 Sepsis Event Note - Evaluation Sepsis Screening Result: No Definite Risk - Focused Exam Vital Signs: Vital Signs Temp Pulse Resp BP Pulse Ox Pulse Ox 11/06/20 08:11 36.9 C 77 20 124/63 94 L 11/06/20 04:00 36.8 C 68 21 H 132/78 91 L 11/06/20 00:00 36.7 C 72 20 128/65 92 L 11/05/20 23:11 91 L - Problem List Review Problem List Initiated/Reviewed/Updated: Yes - My Orders Last 24 Hours: My Active Orders 11/05/20 09:00 Diltiazem [Cardizem CD] 360 mg PO QAM Pantoprazole [ProTONIX] 40 mg PO DAILY Rivaroxaban [Xarelto] 15 mg PO DAILY 11/05/20 14:37 Albuterol/Ipratropium [DuoNeb 3.0-0.5 MG/3 ML] 3 ml NEB Q2H PRN 11/05/20 14:40 RT Aerosol Therapy [RC] ASDIRECTED 11/05/20 14:47 RT Aerosol Therapy [RC] ASDIRECTED 11/05/20 14:48 Transfer Patient (Change bed) [ADT] Routine 11/05/20 15:20 Telemetry Monitoring [Cardiac Monitoring] [RC] Q8H - Plan Plan:: 75 yo female admitted for COPD exacerbation and atrial fibrillation with RVR. Atrial fibrillation with RVR: patient has converted to normal sinus rhythm. We will continue oral diltiazem and xarelto COPD exacerbation: Will continue prednisone, and duonebs. patient still has limited mobility likely due to shortness of breath. PT consulted. dispo: likely in 1-2 days.
[2020-11-06] MEDS: Tiotropium Inhaler 18 MCG Inhalation Powder Cap Kit of 5 INH SCH (15:54)
[2020-11-06] MEDS ORDERED: Mirtazapine 15 MG Tab PO SCH (18:00)
[2020-11-06] MEDS: Memantine 10 MG Tab PO SCH (21:08)
[2020-11-07] MEDS: Albuterol/Ipratropium 3.0-0.5 MG/3 ML Neb Soln NEB SCH ×3 (01:47→09:07)
[2020-11-07] MEDS: Rivaroxaban 15 MG Tab PO SCH (08:25)
[2020-11-07] MEDS: Memantine 10 MG Tab PO SCH (08:25)
[2020-11-07] MEDS: Diltiazem 180 MG Cap.CD PO SCH (08:25)
[2020-11-07] MEDS: predniSONE 20 MG Tab PO SCH (08:26)
[2020-11-07] MEDS: Pantoprazole 40 MG Tab.CR PO SCH (08:26)
[2020-11-07] MEDS: Tiotropium Inhaler 18 MCG Inhalation Powder Cap Kit of 5 INH SCH (08:26)
--- NOTE | 2020-11-07 11:31 | PCM.DCSUM1 ---
Discharge Summary - Discharge Data Discharge Date: 11/07/20 Discharge Disposition: Home, Self-Care 01 Condition: Stable - Referral to Home Health Primary Care Physician: PCP Not In Area - Patient Summary/Data Consults: Consultations 11/06/20 08:55 Consult to Physical Therapy [PT Evaluation and Treatment] [CONS] Routine Hospital Course: 75 yo female with pmh of COPD, atrial fibrillation on anticoagulation, and lung cancer who was admitted for COPD exacerbation after visiting the ER twich for shortness of breath. PAtient reports one day history of shortness of breath on exertion and wheezing. On the second ER visit patient was noted to be in atrial fibrillation with RVR. She was placed on diltizem and transfered to the ICU. She was quickly weaned off the drip and back on her oral diltiazem. During her hospital stay she was requiring 2 L NC to keep sats above 90% which is her baseline oxygen demands at home. CT scan of her chest reported emphysema adn left lower lung nodule. She was treated with prednisone, azithromycin, and duonebs. She did have improvement in her symptoms and is requesting discharge home. I spoke with her daughter this morning who is in agreement with discharge. Patient is to follow up with [facility] and wants to transfer her Oncology care here. Patient had already filled a prescription for prednisone and will resume this at home. She was given a prescription for Azithromycin for four more days. She is to also resume her albuterol inhaler and Spiriva. - Patient Instructions Diet: Usual Diet as Tolerated - Discharge Plan Prescriptions/Med Rec: Albuterol Sulfate [Albuterol Sulfate HFA] 8.5 gm INH Q6H PRN #1 inhaler PRN Reason: wheezing Azithromycin 500 mg PO DAILY #4 tablet Home Medications: Home Meds Memantine [Namenda] 5 mg PO BID 11/04/20 [History] Mirtazapine 15 mg PO QPM 11/04/20 [History] Rivaroxaban [Xarelto] 15 mg PO DAILY 11/04/20 [History] dilTIAZem HCL [Diltiazem 24Hr ER ([place])] 360 mg PO QAM 11/04/20 [History] traMADol [Ultram] 50 mg PO BID PRN 11/04/20 [History] Tiotropium [Spiriva HandiHaler] 1 puff INH DAILY 11/06/20 [History] Albuterol Sulfate [Albuterol Sulfate HFA] 8.5 gm INH Q6H PRN #1 inhaler 11/07/20 [Rx] Azithromycin 500 mg PO DAILY #4 tablet 11/07/20 [Rx] predniSONE 40 mg PO WITHBREAKFAST tablet 11/07/20 [Rx] Patient Handouts: Chronic Obstructive Pulmonary Disease, [id number], Atrial Fibrillation, [id number] Referrals: Carley Monroy NP [Nurse Practitioner] - 11/15/20 10:30 am - Discharge Summary/Plan Comment DC Time >30 min.: No - Patient Data Vitals - Most Recent: Last Vital Signs Temp 36.8 C 11/07/20 07:03 Pulse 71 11/07/20 04:00 Resp 23 H 11/07/20 07:03 BP 129/69 11/07/20 07:03 Pulse Ox 99 11/07/20 07:03 Weight - Most Recent: 38.555 kg I&O - Last 24 hours: Intake & Output 11/06/20 11/07/20 11/07/20 22:59 06:59 14:59 Intake Total 700 480 Output Total 590 400 Balance 110 80 Med Orders - Current: Current Medications Albuterol/Ipratropium (Albuterol/Ipratropium 3.0-0.5 Mg/3 Ml Neb Soln) 3 ml NEB Q2H PRN PRN Reason: Shortness of Breath Last Admin: 11/06/20 15:54 Dose: 3 ml Documented by: Albuterol/Ipratropium (Albuterol/Ipratropium 3.0-0.5 Mg/3 Ml Neb Soln) 3 ml NEB Q4HRRT [facility] Last Admin: 11/07/20 09:07 Dose: 3 ml Documented by: Diltiazem HCl (Diltiazem 180 Mg Cap.Cd) 360 mg PO QAM [facility] Last Admin: 11/07/20 08:25 Dose: 360 mg Documented by: Memantine (Memantine 10 Mg Tab) 5 mg PO BID [facility] Last Admin: 11/07/20 08:25 Dose: 5 mg Documented by: Mirtazapine (Mirtazapine 15 Mg Tab) 15 mg PO QPM [facility] Last Admin: 11/06/20 18:42 Dose: 15 mg Documented by: Pantoprazole Sodium (Pantoprazole 40 Mg Tab.Cr) 40 mg PO DAILY [facility] Last Admin: 11/07/20 08:26 Dose: 40 mg Documented by: Prednisone (Prednisone 20 Mg Tab) 40 mg PO WITHBREAKFAST [facility] Last Admin: 11/07/20 08:26 Dose: 40 mg Documented by: Rivaroxaban (Rivaroxaban 15 Mg Tab) 15 mg PO DAILY [facility] Last Admin: 11/07/20 08:25 Dose: 15 mg Documented by: Tiotropium [place] (Tiotropium Inhaler 18 Mcg Inhalation Powder Cap Kit Of 5) 18 mcg INH DAILY [facility] Last Admin: 11/07/20 08:26 Dose: 1 cap Documented by: Tramadol HCl (Tramadol 50 Mg Tab) 50 mg PO BID PRN PRN Reason: Pain Discontinued Medications Albuterol/Ipratropium (Albuterol/Ipratropium 3.0-0.5 Mg/3 Ml Neb Soln) 3 ml NEB ONETIME ONE Stop: 11/04/20 18:32 Last Admin: 11/04/20 18:41 Dose: 3 ml Documented by: Albuterol/Ipratropium (Albuterol/Ipratropium 3.0-0.5 Mg/3 Ml Neb Soln) 3 ml NEB Q6HRRT [facility] Last Admin: 11/06/20 05:59 Dose: 3 ml Documented by: Albuterol/Ipratropium (Albuterol/Ipratropium 3.0-0.5 Mg/3 Ml Neb Soln) 3 ml NEB Q2H PRN PRN Reason: Wheezing Azithromycin (Azithromycin 250 Mg Tab) 500 mg PO Q24H ONE Stop: 11/04/20 23:13 Last Admin: 11/04/20 23:24 Dose: 500 mg Documented by: Diltiazem HCl (Diltiazem 25 Mg/5 Ml Sdv) 10 mg IVPUSH ONETIME ONE Stop: 11/04/20 18:59 Last Admin: 11/04/20 19:28 Dose: 10 mg Documented by: Diltiazem HCl (Diltiazem Ir 30 Mg Tab) 30 mg PO ONETIME ONE Stop: 11/04/20 23:11 Last Admin: 11/04/20 23:24 Dose: 30 mg Documented by: Diltiazem HCl 100 mg/ Sodium (Chloride) 100 mls @ 5 mls/hr IV NOW [facility]; Protocol Last Titration: 11/05/20 01:43 Dose: 0 mg/hr, 0 mls/hr Documented by: Iopamidol (Iopamidol 755 Mg/Ml 500 Ml Multipack Bottle) 100 ml IVPUSH ONETIME STA Stop: 11/04/20 20:31 Last Admin: 11/04/20 20:31 Dose: 100 ml Documented by:
== END 2020-11-07 13:00 | disposition home or self-care (01) | DRG 309 ==
LOC: MW.ED 18:17 → MW.ICU 21:19 → MW.MS 11-05 17:19
PROVIDERS: ADMIT Internal Medicine; ATTEND Internal Medicine
DX: I48.91 Unspecified atrial fibrillation (principal); J96.21 Acute and chronic respiratory failure with hypoxia; J44.1 Chronic obstructive pulmonary disease with (acute) exacerbation; H91.90 Unspecified hearing loss, unspecified ear; Z79.01 Long term (current) use of anticoagulants; Z85.118 Personal history of other malignant neoplasm of bronchus and lung; Z99.81 Dependence on supplemental oxygen; Z79.899 Other long term (current) drug therapy; I25.2 Old myocardial infarction
CPT/HCPCS: 71275; 93005; 94640; J3490 ×2; Q9967; 36415; 80048; 83735; 85025; 93010; 94664; 96374; 97161-GP; 99223; 99232; 99233; 99238; 99285-25; 99291; A9270-GY; J7620-GY

== ENCOUNTER 2021-03-28 13:22 | Emergency (ER) | payer MEDICARE, OTHER ==
--- NOTE | 2021-03-28 13:36 | EDM.PDOC ---
ED HPI GENERAL MEDICAL PROBLEM - General Stated Complaint: NOT SLEEPING, NOT EATING Time Seen by Provider: 03/28/21 13:34 Source of Information: Reports: Patient History Limitations: Reports: No Limitations - History of Present Illness INITIAL COMMENTS - FREE TEXT/NARRATIVE: 75-year-old female past medical history A. fib on Xarelto, COPD on 2 L home oxygen presents for 2 days of altered mental status. History is from patient and her daughter. Patient notes that for the last 2 days she has been hallucinating things. She sees objects on her couch and people outside her window. She seems to unders tand that they are not really there. She notes that she has had a very reduced appetite and has eaten and drank very little in the last couple of days. She has had great difficulty sleeping. She denies any dysuria, fevers, abdominal pain, nausea, vomiting. She notes chronic shortness of breath unchanged. Per daughter patient has been acting very strange for the last couple of days. She has had trouble sleeping at night and has sometimes been screaming in the middle of the night. She tried to leave the house early this morning banging on the window. They went to primary care physician who sent him to the emergency department. - Related Data Allergies Allergy/AdvReac Type Severity Reaction Status Date / Time No Known Allergies Allergy Verified 03/28/21 13:40 Home Meds: Home Meds Memantine [Namenda] 5 mg PO BID 11/04/20 [History] Mirtazapine 15 mg PO QPM 11/04/20 [History] Rivaroxaban [Xarelto] 15 mg PO DAILY 11/04/20 [History] dilTIAZem HCL [Diltiazem 24Hr ER ([place])] 360 mg PO QAM 11/04/20 [History] traMADol [Ultram] 50 mg PO BID PRN 11/04/20 [History] Tiotropium [Spiriva HandiHaler] 1 puff INH DAILY 11/06/20 [History] Albuterol Sulfate [Albuterol Sulfate HFA] 8.5 gm INH Q6H PRN #1 inhaler 11/07/20 [Rx] predniSONE 40 mg PO WITHBREAKFAST tablet 11/07/20 [Rx] QUEtiapine Fumarate [Seroquel] 12.5 mg PO QPM 28 Days #14 tablet 03/28/21 [Rx] Past Medical History - Past Health History Medical/Surgical History: Denies Medical/Surgical History HEENT History: Reports: Hard of Hearing Cardiovascular History: Reports: Arrhythmia, [place], Other (See Below) Other Cardiovascular History: no stents Respiratory History: Reports: COPD, Other (See Below) Other Respiratory History: on 2liters 02 via nasal cannula; Lung CA with 5 radiation therapy sessions [employer] History: Reports: Hematologic History: Reports: Anticoagulation Therapy, Other (See Below) Other Hematologic History: on xarelto - Infectious Disease History Infectious Disease History: Reports: Chicken Pox, Measles, Rubella - Past Surgical History HEENT Surgical History: Reports: Other (See Below) Other HEENT Surgeries/Procedures: ear surgery Respiratory Surgical History: Reports: None Social & Family History - Family History Family Medical History: No Pertinent Family History - Caffeine Use Caffeine Use: Reports: Coffee, Tea ED ROS GENERAL - Review of Systems Review Of Systems: Comprehensive ROS is negative, except as noted in HPI. ED EXAM, GENERAL - Physical Exam Exam: See Below Exam Limited By: No Limitations General Appearance: Alert, WD/WN, No Apparent Distress Eye Exam: Bilateral Eye: EOMI, PERRL Ears: Hearing Grossly Normal Throat/Mouth: Normal Voice, No Airway Compromise Head: Atraumatic, Normocephalic Neck: Normal Inspection Respiratory/Chest: No Respiratory Distress, Lungs Clear, Normal Breath Sounds, No Accessory Muscle Use Cardiovascular: Normal Peripheral Pulses, No Edema, Tachycardia GI/Abdominal: Soft, Non-Tender Extremities: Normal Inspection Neurological: Alert, CN II-XII Intact, Normal Cognition, Normal Gait, No Motor/Sensory Deficits Psychiatric: Normal Affect, Normal Mood Skin Exam: Warm, Dry, Intact, Normal Color #1 Interpretation EKG Date: 03/28/21 Time: 14:16 Rhythm: A-Fib Rate (Beats/Min): 94 [place]: Normal QRS: Normal ST-T: Normal QT: Normal EKG Interpretation Comments: Afib without ischemic changes, normal rate Course - Vital Signs Last Recorded V/S: Last Vital Signs Temp 98.5 F 03/28/21 13:40 Pulse 104 H 03/28/21 13:40 Resp 14 03/28/21 13:40 BP 129/61 03/28/21 13:40 Pulse Ox 94 L 03/28/21 13:40 - Orders/Labs/Meds Orders: Active Orders 24 hr Category Date Time Status Blood Glucose Check, Bedside [RC] ONETIME Care 03/28/21 13:59 Active EKG Documentation Completion [RC] STAT Care 03/28/21 13:58 Active Pulse Oximetry [RC] ASDIRECTED Care 03/28/21 13:59 Active Sodium Chloride 0.9% [Normal Saline] 500 ml Med 03/28/21 14:15 Active IV .BOLUS Saline Lock Insert [OM.PC] Stat Oth 03/28/21 13:59 Ordered Medication Orders Sodium Chloride (Normal Saline) 500 mls @ 500 mls/hr IV .BOLUS UTE Last Admin: 03/28/21 14:22 Dose: 500 mls/hr Documented by: TRINI Labs: Laboratory Tests 03/28/21 03/28/21 03/28/21 Range/Units 13:30 13:30 14:15 WBC (4.0-11.0) K/uL RBC (4.30-5.90) M/uL Hgb (12.0-16.0) g/dL Hct (36.0-46.0) % MCV (80.0-98.0) fL MCH (27.0-32.0) pg MCHC (31.0-37.0) g/dL RDW Std Deviation (28.0-62.0) fl RDW Coeff of Omar (11.0-15.0) % Plt Count (150-400) K/uL MPV (7.40-12.00) fL Neut % (Auto) (48.0-80.0) % Lymph % (Auto) (16.0-40.0) % [place] % (Auto) (0.0-15.0) % Eos % (Auto) (0.0-7.0) % Baso % (Auto) (0.0-1.5) % Neut # (Auto) (1.4-5.7) K/uL Lymph # (Auto) (0.6-2.4) K/uL [place] # (Auto) (0.0-0.8) K/uL Eos # (Auto) (0.0-0.7) K/uL Baso # (Auto) (0.0-0.1) K/uL Nucleated RBC % /100WBC Nucleated RBCs # K/uL VBG pH 7.42 H (7.31-7.41) VBG pCO2 53 H (41-51) mmHG VBG pO2 34 mmHG VBG HCO3 34 H (23-28) mEq/L VBG Total CO2 31 H (24-29) mmol/L VBG Base Excess 8.0 H (-2.0-3.0) Sodium (136-145) mmol/L Potassium (3.5-5.1) mmol/L Chloride (98-107) mmol/L Carbon Dioxide (21.0-32.0) mmol/L BUN (7.0-18.0) mg/dL Creatinine (0.6-1.0) mg/dL Est Cr Clr Drug Dosing mL/min Estimated GFR (MDRD) ml/min Glucose (74-106) mg/dL POC Glucose (70-99) mg/dL Lactic Acid (0.4-2.0) mmol/L Calcium (8.5-10.1) mg/dL Magnesium (1.8-2.4) mg/dL Total Bilirubin (0.2-1.0) mg/dL AST (15-37) IU/L ALT (14-63) IU/L Alkaline Phosphatase (46-116) U/L Troponin I (0.000-0.056) ng/mL B-Natriuretic Peptide (<100) PG/ML Total Protein (6.4-8.2) g/dL Albumin (3.4-5.0) g/dL Globulin (2.6-4.0) g/dL Albumin/Globulin Ratio (0.9-1.6) TSH, Ultra Sensitive (0.36-3.74) uIU/mL Urine Color YELLOW Urine Appearance CLEAR Urine pH 6.5 (5.0-8.0) Ur Specific [place] <= 1.005 (1.001-1.035) Urine Protein NEGATIVE (NEGATIVE) mg/dL Urine Glucose (UA) NEGATIVE (NEGATIVE) mg/dL Urine Ketones NEGATIVE (NEGATIVE) mg/dL Urine Occult Blood SMALL H (NEGATIVE) Urine Nitrite NEGATIVE (NEGATIVE) Urine Bilirubin NEGATIVE (NEGATIVE) Urine Urobilinogen 1.0 (<2.0) EU/dL Ur Leukocyte Esterase NEGATIVE (NEGATIVE) Urine RBC 0-2 (0-2/HPF) Urine WBC 0-2 (0-5/HPF) Ur Epithelial Cells OCCASIONAL (NONE-FEW) Urine Bacteria NOT SEEN (NEGATIVE) Urine Opiates Screen NEGATIVE (NEGATIVE) Ur Oxycodone Screen NEGATIVE (NEGATIVE) Urine Methadone Screen NEGATIVE (NEGATIVE) Ur Barbiturates Screen NEGATIVE (NEGATIVE) Ur Phencyclidine Scrn NEGATIVE (NEGATIVE) Ur Amphetamine Screen NEGATIVE (NEGATIVE) U Methamphetamines Scrn NEGATIVE (NEGATIVE) U Benzodiazepines Scrn NEGATIVE (NEGATIVE) U Cocaine Metab Screen NEGATIVE (NEGATIVE) U Marijuana (THC) Screen NEGATIVE (NEGATIVE) Ethyl Alcohol mg/dL SARS-CoV-2 RNA (ABHI) (NEGATIVE) 03/28/21 03/28/21 03/28/21 Range/Units 14:15 14:15 14:15 WBC 6.62 (4.0-11.0) K/uL RBC 4.65 (4.30-5.90) M/uL Hgb 13.8 (12.0-16.0) g/dL Hct 42.7 (36.0-46.0) % MCV 91.8 (80.0-98.0) fL MCH 29.7 (27.0-32.0) pg MCHC 32.3 (31.0-37.0) g/dL RDW Std Deviation 47.1 (28.0-62.0) fl RDW Coeff of Omar 14 (11.0-15.0) % Plt Count 290 (150-400) K/uL MPV 9.90 (7.40-12.00) fL Neut % (Auto) 67.0 (48.0-80.0) % Lymph % (Auto) 22.8 (16.0-40.0) % [place] % (Auto) 8.5 (0.0-15.0) % Eos % (Auto) 1.1 (0.0-7.0) % Baso % (Auto) 0.6 (0.0-1.5) % Neut # (Auto) 4.4 (1.4-5.7) K/uL Lymph # (Auto) 1.5 (0.6-2.4) K/uL [place] # (Auto) 0.6 (0.0-0.8) K/uL Eos # (Auto) 0.1 (0.0-0.7) K/uL Baso # (Auto) 0.0 (0.0-0.1) K/uL Nucleated RBC % 0.0 /100WBC Nucleated RBCs # 0 K/uL VBG pH (7.31-7.41) VBG pCO2 (41-51) mmHG VBG pO2 mmHG VBG HCO3 (23-28) mEq/L VBG Total CO2 (24-29) mmol/L VBG Base Excess (-2.0-3.0) Sodium 139 (136-145) mmol/L Potassium 3.6 (3.5-5.1) mmol/L Chloride 102 (98-107) mmol/L Carbon Dioxide 33.2 H (21.0-32.0) mmol/L BUN 13 (7.0-18.0) mg/dL Creatinine 0.7 (0.6-1.0) mg/dL Est Cr Clr Drug Dosing 41.62 mL/min Estimated GFR (MDRD) > 60.0 ml/min Glucose 152 H (74-106) mg/dL POC Glucose (70-99) mg/dL Lactic Acid 1.7 (0.4-2.0) mmol/L Calcium 8.7 (8.5-10.1) mg/dL Magnesium 2.2 (1.8-2.4) mg/dL Total Bilirubin 0.3 (0.2-1.0) mg/dL AST 16 (15-37) IU/L ALT 16 (14-63) IU/L Alkaline Phosphatase 84 (46-116) U/L Troponin I < 0.050 (0.000-0.056) ng/mL B-Natriuretic Peptide (<100) PG/ML Total Protein 7.4 (6.4-8.2) g/dL Albumin 3.2 L (3.4-5.0) g/dL Globulin 4.2 H (2.6-4.0) g/dL Albumin/Globulin Ratio 0.8 L (0.9-1.6) TSH, Ultra Sensitive 3.03 (0.36-3.74) uIU/mL Urine Color Urine Appearance Urine pH (5.0-8.0) Ur Specific [place] (1.001-1.035) Urine Protein (NEGATIVE) mg/dL Urine Glucose (UA) (NEGATIVE) mg/dL Urine Ketones (NEGATIVE) mg/dL Urine Occult Blood (NEGATIVE) Urine Nitrite (NEGATIVE) Urine Bilirubin (NEGATIVE) Urine Urobilinogen (<2.0) EU/dL Ur Leukocyte Esterase (NEGATIVE) Urine RBC (0-2/HPF) Urine WBC (0-5/HPF) Ur Epithelial Cells (NONE-FEW) Urine Bacteria (NEGATIVE) Urine Opiates Screen (NEGATIVE) Ur Oxycodone Screen (NEGATIVE) Urine Methadone Screen (NEGATIVE) Ur Barbiturates Screen (NEGATIVE) Ur Phencyclidine Scrn (NEGATIVE) Ur Amphetamine Screen (NEGATIVE) U Methamphetamines Scrn (NEGATIVE) U Benzodiazepines Scrn (NEGATIVE) U Cocaine Metab Screen (NEGATIVE) U Marijuana (THC) Screen (NEGATIVE) Ethyl Alcohol < 3.0 mg/dL SARS-CoV-2 RNA (ABHI) (NEGATIVE) 03/28/21 03/28/21 03/28/21 Range/Units 14:15 14:17 14:26 WBC (4.0-11.0) K/uL RBC (4.30-5.90) M/uL Hgb (12.0-16.0) g/dL Hct (36.0-46.0) % MCV (80.0-98.0) fL MCH (27.0-32.0) pg MCHC (31.0-37.0) g/dL RDW Std Deviation (28.0-62.0) fl RDW Coeff of Omar (11.0-15.0) % Plt Count (150-400) K/uL MPV (7.40-12.00) fL Neut % (Auto) (48.0-80.0) % Lymph % (Auto) (16.0-40.0) % [place] % (Auto) (0.0-15.0) % Eos % (Auto) (0.0-7.0) % Baso % (Auto) (0.0-1.5) % Neut # (Auto) (1.4-5.7) K/uL Lymph # (Auto) (0.6-2.4) K/uL [place] # (Auto) (0.0-0.8) K/uL Eos # (Auto) (0.0-0.7) K/uL Baso # (Auto) (0.0-0.1) K/uL Nucleated RBC % /100WBC Nucleated RBCs # K/uL VBG pH (7.31-7.41) VBG pCO2 (41-51) mmHG VBG pO2 mmHG VBG HCO3 (23-28) mEq/L VBG Total CO2 (24-29) mmol/L VBG Base Excess (-2.0-3.0) Sodium (136-145) mmol/L Potassium (3.5-5.1) mmol/L Chloride (98-107) mmol/L Carbon Dioxide (21.0-32.0) mmol/L BUN (7.0-18.0) mg/dL Creatinine (0.6-1.0) mg/dL Est Cr Clr Drug Dosing mL/min Estimated GFR (MDRD) ml/min Glucose (74-106) mg/dL POC Glucose 150 H (70-99) mg/dL Lactic Acid (0.4-2.0) mmol/L Calcium (8.5-10.1) mg/dL Magnesium (1.8-2.4) mg/dL Total Bilirubin (0.2-1.0) mg/dL AST (15-37) IU/L ALT (14-63) IU/L Alkaline Phosphatase (46-116) U/L Troponin I (0.000-0.056) ng/mL B-Natriuretic Peptide 142 H (<100) PG/ML Total Protein (6.4-8.2) g/dL Albumin (3.4-5.0) g/dL Globulin (2.6-4.0) g/dL Albumin/Globulin Ratio (0.9-1.6) TSH, Ultra Sensitive (0.36-3.74) uIU/mL Urine Color Urine Appearance Urine pH (5.0-8.0) Ur Specific [place] (1.001-1.035) Urine Protein (NEGATIVE) mg/dL Urine Glucose (UA) (NEGATIVE) mg/dL Urine Ketones (NEGATIVE) mg/dL Urine Occult Blood (NEGATIVE) Urine Nitrite (NEGATIVE) Urine Bilirubin (NEGATIVE) Urine Urobilinogen (<2.0) EU/dL Ur Leukocyte Esterase (NEGATIVE) Urine RBC (0-2/HPF) Urine WBC (0-5/HPF) Ur Epithelial Cells (NONE-FEW) Urine Bacteria (NEGATIVE) Urine Opiates Screen (NEGATIVE) Ur Oxycodone Screen (NEGATIVE) Urine Methadone Screen (NEGATIVE) Ur Barbiturates Screen (NEGATIVE) Ur Phencyclidine Scrn (NEGATIVE) Ur Amphetamine Screen (NEGATIVE) U Methamphetamines Scrn (NEGATIVE) U Benzodiazepines Scrn (NEGATIVE) U Cocaine Metab Screen (NEGATIVE) U Marijuana (THC) Screen (NEGATIVE) Ethyl Alcohol mg/dL SARS-CoV-2 RNA (ABHI) NEGATIVE (NEGATIVE) Meds: Medications Generic Name Dose Route Start Last Admin Trade Name Freq PRN Reason Stop Dose Admin Sodium Chloride 500 mls @ 500 mls/hr 03/28/21 14:15 03/28/21 14:22 Normal Saline IV 500 mls/hr .BOLUS UTE Administration - Re-Assessments/Exams Free Text/Narrative Re-Assessment/Exam: 03/28/21 14:06 We will get labs and imaging and disposition accordingly. 03/28/21 15:49 Labs and imaging are unremarkable. I had a long discussion with daughter. They are established patients with neurologist Dr. Waldron. Patient does have a known history of dementia. I did discuss the case with patient's neurologist who recommends Seroquel 12.5 mg at night to help with sleep and she will schedule an appointment to see the patient in the coming week. Daughter is comfortable with this plan. Return precautions were discussed at length. Departure - Departure Time of Disposition: 15:49 Disposition: Home, Self-Care 01 Condition: Good Clinical Impression: Dementia Qualifiers: Dementia type: unspecified type Dementia behavioral disturbance: with behavioral disturbance Qualified Code(s): F03.91 - Unspecified dementia with behavioral disturbance - Discharge Information Prescriptions: QUEtiapine Fumarate [Seroquel] 12.5 mg PO QPM 28 Days #14 tablet Instructions: Dementia Caregiver Guide, Dementia Referrals: Carley Monroy NP [Primary Care Provider] - Additional Instructions: Dr. Waldron will be contacting you to establish an appointment in the coming week. I also prescribed a medication that can help you get some sleep at night until you are able to follow-up with a neurologist and come up with a more definitive long-term plan. If you are at all concerned about anything then please come back to the emergency department for reassessment. The following information is given to patients seen in the emergency department who are being discharged to home. This information is to outline your options for follow-up care. We provide all patients seen in our emergency department with a follow-up referral. The need for follow-up, as well as the timing and circumstances, are variable depending upon the specifics of your emergency department visit. If you don't have a primary care physician on staff, we will provide you with a referral. We always advise you to contact your personal physician following an emergency department visit to inform them of the circumstance of the visit and for follow-up with them and/or the need for any referrals to a consulting specialist. The emergency department will also refer you to a specialist when appropriate. This referral assures that you have the opportunity for follow-up care with a specialist. All of these measure are taken in an effort to provide you with optimal care, which includes your follow-up. Under all circumstances we always encourage you to contact your private physician who remains a resource for coordinating your care. When calling for follow-up care, please make the office aware that this follow-up is from your recent emergency room visit. If for any reason you are refused follow-up, please contact the [facility] Emergency Department at and asked to speak to the emergency department charge nurse. Please follow up with your primary care physician. If you do not have a primary care physician, see below: [facility] [address] [place] [id number] [facility] [address] [place] [id number] [facility] [address] [place] [id number] Sepsis Event Note (ED) - Focused Exam Vital Signs: Vital Signs Temp Pulse Resp BP Pulse Ox 03/28/21 13:40 98.5 F 104 H 14 129/61 94 L - My Orders Last 24 Hours: My Active Orders 03/28/21 13:58 EKG Documentation Completion [RC] STAT 03/28/21 13:59 Blood Glucose Check, Bedside [RC] ONETIME Pulse Oximetry [RC] ASDIRECTED Saline Lock Insert [OM.PC] Stat 03/28/21 14:15 Sodium Chloride 0.9% [Normal Saline] 500 ml IV .BOLUS - Assessment/Plan Last 24 Hours: My Active Orders 03/28/21 13:58 EKG Documentation Completion [RC] STAT 03/28/21 13:59 Blood Glucose Check, Bedside [RC] ONETIME Pulse Oximetry [RC] ASDIRECTED Saline Lock Insert [OM.PC] Stat 03/28/21 14:15 Sodium Chloride 0.9% [Normal Saline] 500 ml IV .BOLUS
[2021-03-28] MEDS ORDERED: Sodium Chloride 0.9% 500 ML IV SCH (14:15)
[2021-03-28 14:58] LABS: BLOOD UREA NITROGEN,BUN 13 mg/dL (7.0-18.0); CARBON DIOXIDE,CO2 33.2 mmol/L (21.0-32.0); CHLORIDE,CL 102 mmol/L (98-107); GLUCOSE RANDOM 152 mg/dL (74-106); POTASSIUM,K 3.6 mmol/L (3.5-5.1); SODIUM,NA 139 mmol/L (136-145)
--- NOTE | 2021-03-28 15:15 | CT ---
INDICATION: New onset hallucinations TECHNIQUE: CT head without contrast. COMPARISON: None FINDINGS: CSF spaces: Within normal limits for age. Brain parenchyma: The puga-white differentiation is normal. No sign of mass, hemorrhage, or midline shift. Periventricular white matter changes consistent chronic microvascular disease. Skull base and calvarium: The visualized paranasal sinuses and mastoid air cells demonstrate no acute or significant findings. The visualized orbits are grossly unremarkable. No skull fractures. IMPRESSION: No acute intracranial abnormalities. Periventricular white matter changes consistent chronic microvascular disease. Please note that all CT scans at this facility use dose modulation, iterative reconstruction, and/or weight-based dosing when appropriate to reduce radiation dose to as low as reasonably achievable. Dictated by Steve Bonilla MD @ 03/28/2021 3:13:25 PM (Electronically Signed)
== END 2021-03-28 16:06 | disposition home or self-care (01) ==
LOC: MW.ED 13:22
DX: F03.91 Unspecified dementia, unspecified severity, with behavioral disturbance (principal); I48.91 Unspecified atrial fibrillation; I25.2 Old myocardial infarction; J44.9 Chronic obstructive pulmonary disease, unspecified; Z79.01 Long term (current) use of anticoagulants; Z79.899 Other long term (current) drug therapy; Z20.822 Contact with and (suspected) exposure to COVID-19
CPT/HCPCS: 36415; 70450; 80053; 80305; 80307; 81001; 82803; 82947; 83605; 83735; 83880; 84443; 84484; 85025; 93005; 99285; J7040; U0002

== ENCOUNTER 2021-04-02 04:50 | Inpatient (IN) | payer MEDICARE, OTHER ==
--- NOTE | 2021-04-02 05:15 | EDM.PDOC ---
ED HPI GENERAL MEDICAL PROBLEM - General Chief Complaint: Respiratory Problem Stated Complaint: SHORTNESS OF BREATH Time Seen by Provider: 04/02/21 05:09 - History of Present Illness INITIAL COMMENTS - FREE TEXT/NARRATIVE: History of present illness: [] The patient woke up this morning short of breath. She told her family members he was dying. She was so weak that she could hardly get to the car. The patient received a neb just before leaving home. Review of systems: As per history of present illness and below otherwise all systems reviewed and negative. Past medical history: As per history of present illness and as reviewed below otherwise noncontributory. Surgical history: As per history of present illness and as reviewed below otherwise noncontributory. Social history: No reported history of drug or alcohol abuse. Family history: As per history of present illness and as reviewed below otherwise noncontributory. Physical exam: Constitutional - well developed, well-nourished and in no acute distress HEENT - normocephalic, no evidence of trauma - external nose and mouth normal - no mass in neck and no JVD - mucosae moist EYES - full EOM, PERRL, no icterus - no evidence of inflammation, injection, or drainage Respiratory -mild respiratory distress, equal bilateral expansion, lungs coarse wheezes throughout with prolonged expiratory phase of respiration Cardiovascular - Regular Rhythm with S1 and S2 appreciated and no murmur, gallop or rub. GI - abdomen soft without distension or organomegaly - normal bowel sounds - no guard or rebound Musculoskeletal no gross deformity of long bones or joints - no tenderness, swelling or edema Neurologic - Alert and oriented times four - CN II-XII grossly intact - motor sensory and coordination symmetrically normal Psychiatric - appropriate mood and affect with normal thought content Hematologic - No petechiae or purpura - mucosa appropriate color and sclera not pale - normal nail bed color and refill Integument - no rash or evidence of trauma - normal turgor Diagnostics: [] Therapeutics: [] Impression: [] Plan: [] Definitive disposition and diagnosis as appropriate pending reevaluation and review of above. - Related Data Allergies Allergy/AdvReac Type Severity Reaction Status Date / Time No Known Allergies Allergy Verified 04/02/21 05:08 Home Meds: Home Meds Memantine [Namenda] 5 mg PO BID 11/04/20 [History] Mirtazapine 15 mg PO QPM 11/04/20 [History] Rivaroxaban [Xarelto] 15 mg PO DAILY 11/04/20 [History] dilTIAZem HCL [Diltiazem 24Hr ER (LA)] 360 mg PO QAM 11/04/20 [History] traMADol [Ultram] 50 mg PO BID PRN 11/04/20 [History] Tiotropium [Spiriva HandiHaler] 1 puff INH DAILY 11/06/20 [History] Albuterol Sulfate [Albuterol Sulfate HFA] 8.5 gm INH Q6H PRN #1 inhaler 11/07/20 [Rx] QUEtiapine Fumarate [Seroquel] 12.5 mg PO QPM 28 Days #14 tablet 03/28/21 [Rx] Docusate Sodium [Colace] 100 mg PO BID PRN 04/02/21 [History] Ferrous Sulfate [Iron] 324 mg PO DAILY 04/02/21 [History] Past Medical History - Past Health History Medical/Surgical History: Denies Medical/Surgical History HEENT History: Reports: Hard of Hearing Cardiovascular History: Reports: Arrhythmia, [place], Other (See Below) Other Cardiovascular History: no stents Respiratory History: Reports: COPD, Other (See Below) Other Respiratory History: on 3 liters 02 via nasal cannula; Lung CA with 5 radiation therapy sessions [employer] OFFICER History: Reports: Hematologic History: Reports: Anticoagulation Therapy, Other (See Below) Other Hematologic History: on xarelto - Infectious Disease History Infectious Disease History: Reports: Chicken Pox, Measles, Rubella - Past Surgical History HEENT Surgical History: Reports: Other (See Below) Other HEENT Surgeries/Procedures: ear surgery Respiratory Surgical History: Reports: None Dermatological Surgical History: Reports: None Social & Family History - Family History Family Medical History: No Pertinent Family History - Caffeine Use Caffeine Use: Reports: Coffee, Tea ED ROS GENERAL - Review of Systems Review Of Systems: Comprehensive ROS is negative, except as noted in HPI. ED EXAM, GENERAL - Physical Exam Exam: See Below Free Text/Narrative:: My physical exam is in the HPI #1 Interpretation EKG Interpretation Comments: EKG done 04/02/2021 at 4:57 AM shows atrial fibrillation and flutter with a rate of 99 a QRS duration of 170 QT duration 435 and axis -24 borderline T abnormality is an late transition to R wave in the precordium compared to 03/28/2021 no change impression no acute injury Course - Vital Signs Text/Narrative:: 08/26/1951 patient is improved with a heart rate still stable the respiratory rate down to 19 and less respiratory distress has bilateral pneumonia Covid negative discussed with Dr. Rocha and admitted. Last Recorded V/S: Last Vital Signs Temp 37.2 C 04/02/21 06:29 Pulse 90 04/02/21 06:29 Resp 28 H 04/02/21 06:29 BP 136/61 04/02/21 06:29 Pulse Ox 98 04/02/21 06:29 - Orders/Labs/Meds Orders: Active Orders 24 hr Category Date Time Status RT Aerosol Therapy [RC] ASDIRECTED Care 04/02/21 05:30 Active CULTURE BLOOD [BC] Stat Lab 04/02/21 06:35 Received CULTURE BLOOD [BC] Stat Lab 04/02/21 06:45 Results REFLEX LACTIC ACID YES OR NO [CHEM] Routine Lab 04/02/21 06:41 Received UA W/ANDREW RFLX IF INDICATED [URIN] Stat Lab 04/02/21 05:22 Ordered Sodium Chloride 0.9% [Normal Saline] 1,000 ml Med 04/02/21 06:45 Active IV .Bolus Sodium Chloride 0.9% [Saline Flush] Med 04/02/21 05:22 Active 10 ml FLUSH ASDIRECTED PRN Sodium Chloride 0.9% [Saline Flush] Med 04/02/21 05:22 Active 2.5 ml FLUSH ASDIRECTED PRN Blood Culture x2 Reflex Set [OM.PC] Stat Oth 04/02/21 06:12 Ordered Saline Lock Insert [OM.PC] Stat Oth 04/02/21 05:22 Ordered Medication Orders Sodium Chloride (Normal Saline) 1,000 mls @ 1,000 mls/hr IV .Bolus ONE Stop: 04/02/21 07:44 Sodium Chloride (Sodium Chloride 0.9% 10 Ml Syringe) 10 ml FLUSH ASDIRECTED PRN PRN Reason: Keep Vein Open Sodium Chloride (Sodium Chloride 0.9% 2.5 Ml Syringe) 2.5 ml FLUSH ASDIRECTED PRN PRN Reason: Keep Vein Open Labs: Laboratory Tests 09/13/21 09/13/21 09/13/21 Range/Units 04:50 04:50 04:50 WBC 14.54 H (4.0-11.0) K/uL RBC 4.51 (4.30-5.90) M/uL Hgb 13.3 (12.0-16.0) g/dL Hct 42.7 (36.0-46.0) % MCV 94.7 (80.0-98.0) fL MCH 29.5 (27.0-32.0) pg MCHC 31.1 (31.0-37.0) g/dL RDW Std Deviation 50.0 (28.0-62.0) fl RDW Coeff of Omar 14 (11.0-15.0) % Plt Count 299 (150-400) K/uL MPV 9.70 (7.40-12.00) fL Neut % (Auto) 81.7 H (48.0-80.0) % Lymph % (Auto) 9.4 L (16.0-40.0) % Love % (Auto) 8.5 (0.0-15.0) % Eos % (Auto) 0.1 (0.0-7.0) % Baso % (Auto) 0.3 (0.0-1.5) % Neut # (Auto) 11.9 H (1.4-5.7) K/uL Lymph # (Auto) 1.4 (0.6-2.4) K/uL Love # (Auto) 1.2 H (0.0-0.8) K/uL Eos # (Auto) 0.0 (0.0-0.7) K/uL Baso # (Auto) 0.0 (0.0-0.1) K/uL Nucleated RBC % 0.0 /100WBC Nucleated RBCs # 0 K/uL Sodium 138 (136-145) mmol/L Potassium 3.9 (3.5-5.1) mmol/L Chloride 102 (98-107) mmol/L Carbon Dioxide 33.3 H (21.0-32.0) mmol/L BUN 23 H (7.0-18.0) mg/dL Creatinine 0.7 (0.6-1.0) mg/dL Est Cr Clr Drug Dosing 41.02 mL/min Estimated GFR (MDRD) > 60.0 ml/min Glucose 273 H (74-106) mg/dL Lactic Acid (0.4-2.0) mmol/L Calcium 8.9 (8.5-10.1) mg/dL Total Bilirubin 0.3 (0.2-1.0) mg/dL AST 21 (15-37) IU/L ALT 20 (14-63) IU/L Alkaline Phosphatase 94 (46-116) U/L Troponin I < 0.050 (0.000-0.056) ng/mL Total Protein 7.5 (6.4-8.2) g/dL Albumin 3.2 L (3.4-5.0) g/dL Globulin 4.3 H (2.6-4.0) g/dL Albumin/Globulin Ratio 0.7 L (0.9-1.6) SARS-CoV-2 RNA (ABHI) (NEGATIVE) 04/02/21 04/02/21 Range/Units 05:00 06:02 WBC (4.0-11.0) K/uL RBC (4.30-5.90) M/uL Hgb (12.0-16.0) g/dL Hct (36.0-46.0) % MCV (80.0-98.0) fL MCH (27.0-32.0) pg MCHC (31.0-37.0) g/dL RDW Std Deviation (28.0-62.0) fl RDW Coeff of Omar (11.0-15.0) % Plt Count (150-400) K/uL MPV (7.40-12.00) fL Neut % (Auto) (48.0-80.0) % Lymph % (Auto) (16.0-40.0) % Love % (Auto) (0.0-15.0) % Eos % (Auto) (0.0-7.0) % Baso % (Auto) (0.0-1.5) % Neut # (Auto) (1.4-5.7) K/uL Lymph # (Auto) (0.6-2.4) K/uL Love # (Auto) (0.0-0.8) K/uL Eos # (Auto) (0.0-0.7) K/uL Baso # (Auto) (0.0-0.1) K/uL Nucleated RBC % /100WBC Nucleated RBCs # K/uL Sodium (136-145) mmol/L Potassium (3.5-5.1) mmol/L Chloride (98-107) mmol/L Carbon Dioxide (21.0-32.0) mmol/L BUN (7.0-18.0) mg/dL Creatinine (0.6-1.0) mg/dL Est Cr Clr Drug Dosing mL/min Estimated GFR (MDRD) ml/min Glucose (74-106) mg/dL Lactic Acid 2.2 H* (0.4-2.0) mmol/L Calcium (8.5-10.1) mg/dL Total Bilirubin (0.2-1.0) mg/dL AST (15-37) IU/L ALT (14-63) IU/L Alkaline Phosphatase (46-116) U/L Troponin I (0.000-0.056) ng/mL Total Protein (6.4-8.2) g/dL Albumin (3.4-5.0) g/dL Globulin (2.6-4.0) g/dL Albumin/Globulin Ratio (0.9-1.6) SARS-CoV-2 RNA (ABHI) NEGATIVE (NEGATIVE) Meds: Medications Generic Name Dose Route Start Last Admin Trade Name Freq PRN Reason Stop Dose Admin Sodium Chloride 1,000 mls @ 1,000 mls/hr 04/02/21 06:45 Normal Saline IV 04/02/21 07:44 .Bolus ONE Sodium Chloride 10 ml 04/02/21 05:22 Sodium Chloride 0.9% 10 Ml Syringe FLUSH ASDIRECTED PRN Keep Vein Open Sodium Chloride 2.5 ml 04/02/21 05:22 Sodium Chloride 0.9% 2.5 Ml Syringe FLUSH ASDIRECTED PRN Keep Vein Open Discontinued Medications Generic Name Dose Route Start Last Admin Trade Name Freq PRN Reason Stop Dose Admin Albuterol 10 mg 04/02/21 05:30 04/02/21 05:35 Albuterol 0.5% 5 Mg/Ml Neb Soln 20 Ml Bottle NEB 04/02/21 05:31 10 mg ONETIME ONE Administration Ceftriaxone Sodium/Dextrose 1 50 mls @ 100 mls/hr 04/02/21 06:12 04/02/21 06:28 gm/ Premix IV 04/02/21 06:41 100 mls/hr ONETIME ONE Administration Methylprednisolone Sodium Succinate 125 mg 04/02/21 05:29 04/02/21 05:59 Methylprednisolone Sodium Succinate 125 Mg/2 Ml Sdv IVPUSH 04/02/21 05:30 125 mg ONETIME ONE Administration Departure - Departure Time of Disposition: 06:51 Disposition: Admitted As Inpatient 65 Clinical Impression: Bilateral pneumonia, COPD exacerbation - Discharge Information Referrals: Carley Monroy NP [Primary Care Provider] - Forms: ED Department Discharge Sepsis Event Note (ED) - Focused Exam Vital Signs: Vital Signs Temp Pulse Resp BP Pulse Ox 04/02/21 06:29 37.2 C 90 28 H 136/61 98 04/02/21 05:30 88 24 H 134/66 98 04/02/21 05:00 94 L 04/02/21 04:50 36.8 C 76 32 H 157/72 H 72 L - My Orders Last 24 Hours: My Active Orders 04/02/21 05:22 UA W/ANDREW RFLX IF INDICATED [URIN] Stat Sodium Chloride 0.9% [Saline Flush] 10 ml FLUSH ASDIRECTED PRN Sodium Chloride 0.9% [Saline Flush] 2.5 ml FLUSH ASDIRECTED PRN Saline Lock Insert [OM.PC] Stat 04/02/21 05:30 RT Aerosol Therapy [RC] ASDIRECTED 04/02/21 06:12 Blood Culture x2 Reflex Set [OM.PC] Stat 04/02/21 06:35 CULTURE BLOOD [BC] Stat 04/02/21 06:41 REFLEX LACTIC ACID YES OR NO [CHEM] Routine 04/02/21 06:45 CULTURE BLOOD [BC] Stat Sodium Chloride 0.9% [Normal Saline] 1,000 ml IV .Bolus - Assessment/Plan Last 24 Hours: My Active Orders 04/02/21 05:22 UA W/ANDREW RFLX IF INDICATED [URIN] Stat Sodium Chloride 0.9% [Saline Flush] 10 ml FLUSH ASDIRECTED PRN Sodium Chloride 0.9% [Saline Flush] 2.5 ml FLUSH ASDIRECTED PRN Saline Lock Insert [OM.PC] Stat 04/02/21 05:30 RT Aerosol Therapy [RC] ASDIRECTED 04/02/21 06:12 Blood Culture x2 Reflex Set [OM.PC] Stat 04/02/21 06:35 CULTURE BLOOD [BC] Stat 04/02/21 06:41 REFLEX LACTIC ACID YES OR NO [CHEM] Routine 04/02/21 06:45 CULTURE BLOOD [BC] Stat Sodium Chloride 0.9% [Normal Saline] 1,000 ml IV .Bolus
[2021-04-02] MEDS ORDERED: Sodium Chloride 0.9% 2.5 ML Syringe FLUSH PRN ×2 (05:22→08:07)
[2021-04-02] MEDS ORDERED: Sodium Chloride 0.9% 10 ML Syringe FLUSH PRN (05:22)
[2021-04-02 05:28] LABS: BLOOD UREA NITROGEN,BUN 23 mg/dL (7.0-18.0); CARBON DIOXIDE,CO2 33.3 mmol/L (21.0-32.0); CHLORIDE,CL 102 mmol/L (98-107); GLUCOSE RANDOM 273 mg/dL (74-106); POTASSIUM,K 3.9 mmol/L (3.5-5.1); SODIUM,NA 138 mmol/L (136-145)
[2021-04-02] MEDS ORDERED: methylPREDNISolone Sodium Succinate 125 MG/2 ML SDV IVPUSH ONE (05:29)
[2021-04-02] MEDS ORDERED: Albuterol 0.5% 5 MG/ML Neb Soln 20 ML Bottle NEB ONE (05:30)
--- NOTE | 2021-04-02 05:48 | CR ---
Indication: Shortness of breath Technique: Chest 1 view Comparison: December 19, 2020 Findings/Impression: Normal cardiomediastinal silhouette. Hyperexpanded lungs with emphysematous changes. New nodular opacities in the left upper and bilateral lower lung ayala concerning for infection. No effusion or pneumothorax. Dictated by Alysha Child MD @ 04/02/2021 5:47:44 AM (Electronically Signed)
[2021-04-02] MEDS ORDERED: cefTRIAXone 1 GM in Premix Bag 1 BAG IV ONE (06:12)
[2021-04-02] MEDS ORDERED: Sodium Chloride 0.9% 1,000 ML IV ONE (06:45)
[2021-04-02] MEDS ORDERED: Albuterol/Ipratropium 3.0-0.5 MG/3 ML Neb Soln ONE (07:57)
[2021-04-02] MEDS ORDERED: Albuterol/Ipratropium 3.0-0.5 MG/3 ML Neb Soln NEB ONE (07:57)
[2021-04-02] MEDS ORDERED: Ondansetron 4 MG/2 ML SDV IVPUSH PRN (08:07)
[2021-04-02] MEDS ORDERED: Docusate Sodium 100 MG Cap PO PRN (08:07)
[2021-04-02] MEDS ORDERED: Acetaminophen 325 MG Tab PO PRN (08:07)
--- NOTE | 2021-04-02 08:10 | PCM.HP.2 ---
H&P History of Present Illness - General Date of Service: 04/02/21 Admit Problem/Dx: Admission Diagnosis/Problem Admission Diagnosis/Problem Pneumonia Source of Information: Patient History Limitations: Reports: No Limitations - Related Data Allergies/Adverse Reactions: Allergies Allergy/AdvReac Type Severity Reaction Status Date / Time No Known Allergies Allergy Verified 04/02/21 05:08 Home Medications: Home Meds Memantine [Namenda] 5 mg PO BID 11/04/20 [History] Mirtazapine 15 mg PO QPM 11/04/20 [History] Rivaroxaban [Xarelto] 15 mg PO DAILY 11/04/20 [History] dilTIAZem HCL [Diltiazem 24Hr ER (LA)] 360 mg PO QAM 11/04/20 [History] traMADol [Ultram] 50 mg PO BID PRN 11/04/20 [History] Tiotropium [Spiriva HandiHaler] 1 puff INH DAILY 11/06/20 [History] Albuterol Sulfate [Albuterol Sulfate HFA] 8.5 gm INH Q6H PRN #1 inhaler 11/07/20 [Rx] QUEtiapine Fumarate [Seroquel] 12.5 mg PO QPM 28 Days #14 tablet 03/28/21 [Rx] Docusate Sodium [Colace] 100 mg PO BID PRN 04/02/21 [History] Ferrous Sulfate [Iron] 324 mg PO DAILY 04/02/21 [History] Past Medical History - Past Health History Medical/Surgical History: Denies Medical/Surgical History HEENT History: Reports: Hard of Hearing Cardiovascular History: Reports: Arrhythmia, [place] Other Cardiovascular History: no stents Respiratory History: Reports: COPD, Other (See Below) Other Respiratory History: on 3 liters 02 via nasal cannula; Lung CA with 5 radiation therapy sessions Gastrointestinal History: Reports: None Genitourinary History: Reports: None [employer] TECHNICIAN History: Reports: Musculoskeletal History: Reports: None Neurological History: Reports: Other (See Below) Other Neuro History: Dementia Psychiatric History: Reports: None Endocrine/Metabolic History: Reports: None Insulin Pump Model and Hospital Cna: None Hematologic History: Reports: Anticoagulation Therapy, Other (See Below) Other Hematologic History: on xarelto Immunologic History: Reports: None Oncologic (Cancer) History: Reports: Lung Dermatologic History: Reports: None - Infectious Disease History Infectious Disease History: Reports: Chicken Pox, Measles, Rubella - Past Surgical History HEENT Surgical History: Reports: Other (See Below) Other HEENT Surgeries/Procedures: ear surgery Respiratory Surgical History: Reports: None Dermatological Surgical History: Reports: None Social & Family History - Family History Family Medical History: No Pertinent Family History - Caffeine Use Caffeine Use: Reports: Coffee - Recreational Drug Use Recreational Drug Use: No Exam - Vital Signs Vital Signs: Last Vital Signs Temp 99 F 04/02/21 06:29 Pulse 99 04/02/21 08:09 Resp 24 H 04/02/21 08:09 BP 132/64 04/02/21 08:09 Pulse Ox 98 04/02/21 08:09 Weight: 38 kg - Patient Data Lab Results Last 24 hrs: Laboratory Results - last 24 hr 04/02/21 04/02/21 04/02/21 Range/Units 04:50 04:50 04:50 WBC 14.54 H (4.0-11.0) K/uL RBC 4.51 (4.30-5.90) M/uL Hgb 13.3 (12.0-16.0) g/dL Hct 42.7 (36.0-46.0) % MCV 94.7 (80.0-98.0) fL MCH 29.5 (27.0-32.0) pg MCHC 31.1 (31.0-37.0) g/dL RDW Std Deviation 50.0 (28.0-62.0) fl RDW Coeff of Omar 14 (11.0-15.0) % Plt Count 299 (150-400) K/uL MPV 9.70 (7.40-12.00) fL Neut % (Auto) 81.7 H (48.0-80.0) % Lymph % (Auto) 9.4 L (16.0-40.0) % Milam % (Auto) 8.5 (0.0-15.0) % Eos % (Auto) 0.1 (0.0-7.0) % Baso % (Auto) 0.3 (0.0-1.5) % Neut # (Auto) 11.9 H (1.4-5.7) K/uL Lymph # (Auto) 1.4 (0.6-2.4) K/uL Milam # (Auto) 1.2 H (0.0-0.8) K/uL Eos # (Auto) 0.0 (0.0-0.7) K/uL Baso # (Auto) 0.0 (0.0-0.1) K/uL Nucleated RBC % 0.0 /100WBC Nucleated RBCs # 0 K/uL Sodium 138 (136-145) mmol/L Potassium 3.9 (3.5-5.1) mmol/L Chloride 102 (98-107) mmol/L Carbon Dioxide 33.3 H (21.0-32.0) mmol/L BUN 23 H (7.0-18.0) mg/dL Creatinine 0.7 (0.6-1.0) mg/dL Est Cr Clr Drug Dosing 41.02 mL/min Estimated GFR (MDRD) > 60.0 ml/min Glucose 273 H (74-106) mg/dL Lactic Acid (0.4-2.0) mmol/L Calcium 8.9 (8.5-10.1) mg/dL Total Bilirubin 0.3 (0.2-1.0) mg/dL AST 21 (15-37) IU/L ALT 20 (14-63) IU/L Alkaline Phosphatase 94 (46-116) U/L Troponin I < 0.050 (0.000-0.056) ng/mL Total Protein 7.5 (6.4-8.2) g/dL Albumin 3.2 L (3.4-5.0) g/dL Globulin 4.3 H (2.6-4.0) g/dL Albumin/Globulin Ratio 0.7 L (0.9-1.6) SARS-CoV-2 RNA (ABHI) (NEGATIVE) 04/02/21 04/02/21 Range/Units 05:00 06:02 WBC (4.0-11.0) K/uL RBC (4.30-5.90) M/uL Hgb (12.0-16.0) g/dL Hct (36.0-46.0) % MCV (80.0-98.0) fL MCH (27.0-32.0) pg MCHC (31.0-37.0) g/dL RDW Std Deviation (28.0-62.0) fl RDW Coeff of Omar (11.0-15.0) % Plt Count (150-400) K/uL MPV (7.40-12.00) fL Neut % (Auto) (48.0-80.0) % Lymph % (Auto) (16.0-40.0) % Milam % (Auto) (0.0-15.0) % Eos % (Auto) (0.0-7.0) % Baso % (Auto) (0.0-1.5) % Neut # (Auto) (1.4-5.7) K/uL Lymph # (Auto) (0.6-2.4) K/uL Milam # (Auto) (0.0-0.8) K/uL Eos # (Auto) (0.0-0.7) K/uL Baso # (Auto) (0.0-0.1) K/uL Nucleated RBC % /100WBC Nucleated RBCs # K/uL Sodium (136-145) mmol/L Potassium (3.5-5.1) mmol/L Chloride (98-107) mmol/L Carbon Dioxide (21.0-32.0) mmol/L BUN (7.0-18.0) mg/dL Creatinine (0.6-1.0) mg/dL Est Cr Clr Drug Dosing mL/min Estimated GFR (MDRD) ml/min Glucose (74-106) mg/dL Lactic Acid 2.2 H* (0.4-2.0) mmol/L Calcium (8.5-10.1) mg/dL Total Bilirubin (0.2-1.0) mg/dL AST (15-37) IU/L ALT (14-63) IU/L Alkaline Phosphatase (46-116) U/L Troponin I (0.000-0.056) ng/mL Total Protein (6.4-8.2) g/dL Albumin (3.4-5.0) g/dL Globulin (2.6-4.0) g/dL Albumin/Globulin Ratio (0.9-1.6) SARS-CoV-2 RNA (ABHI) NEGATIVE (NEGATIVE) Result Diagrams: 04/02/21 04:50 04/02/21 04:50 Reji Results Last 24 hrs: Microbiology 04/02/21 06:45 Anaerobic Blood Culture - Final Blood - Venous - Lab Draw Sepsis Event Note - Focused Exam Vital Signs: Vital Signs Temp Pulse Resp BP Pulse Ox 04/02/21 08:09 99 24 H 132/64 98 04/02/21 07:17 105 H 22 H 122/55 L 95 04/02/21 06:29 99 F 90 28 H 136/61 98 04/02/21 05:30 88 24 H 134/66 98 04/02/21 05:00 94 L 04/02/21 04:50 98.3 F 76 32 H 157/72 H 72 L Orders Last 24hrs: Active Orders 24 hr Category Date Time Status Admission Status [Patient Status] [ADT] Stat ADT 04/02/21 06:52 Active Antiembolic Devices [RC] PER UNIT ROUTINE Care 04/02/21 08:09 Ordered Intake and Output [RC] QSHIFT Care 04/02/21 08:07 Ordered Oxygen Therapy [RC] PRN Care 04/02/21 08:07 Ordered RT Aerosol Therapy [RC] ASDIRECTED Care 04/02/21 05:30 Active RT Aerosol Therapy [RC] ASDIRECTED Care 04/02/21 07:57 Active RT Aerosol Therapy [RC] ASDIRECTED Care 04/02/21 08:09 Ordered Up With Assistance [RC] ASDIRECTED Care 04/02/21 08:07 Ordered VTE/DVT Education [RC] PER UNIT ROUTINE Care 04/02/21 08:07 Ordered Vital Signs [RC] Q4H Care 04/02/21 08:07 Ordered Regular Diet [DIET] Diet 04/02/21 Breakfast Ordered BASIC METABOLIC PANEL,BMP [CHEM] AM Lab 04/03/21 05:11 Ordered CBC WITH AUTO DIFF [HEME] AM Lab 04/03/21 05:11 Ordered CULTURE BLOOD [BC] Stat Lab 04/02/21 06:35 Received CULTURE BLOOD [BC] Stat Lab 04/02/21 06:45 Results MAGNESIUM [CHEM] AM Lab 04/03/21 05:11 Ordered PHOSPHORUS [CHEM] AM Lab 04/03/21 05:11 Ordered REFLEX LACTIC ACID YES OR NO [CHEM] Routine Lab 04/02/21 06:41 Received UA W/REJI RFLX IF INDICATED [URIN] Stat Lab 04/02/21 05:22 Ordered Acetaminophen [TylenoL] Med 04/02/21 08:07 Ordered 650 mg PO Q4H PRN Albuterol/Ipratropium [DuoNeb 3.0-0.5 MG/3 ML] Med 04/02/21 10:00 Ordered 3 ml NEB Q4HRRT Docusate Sodium [Colace] Med 04/02/21 08:07 Ordered 100 mg PO BID PRN Lactated Ringers [Ringers, Lactated] 1,000 ml Med 04/02/21 08:15 Ordered IV Q8H Levofloxacin/Dextrose 5%-Water [Levaquin in D5W 750 MG/ Med 04/02/21 08:15 Ordered 150 ML] 750 mg Premix Bag 1 bag IV Q24H Ondansetron [Zofran] Med 04/02/21 08:07 Ordered 4 mg IVPUSH Q4H PRN Sodium Chloride 0.9% [Saline Flush] Med 04/02/21 05:22 Active 10 ml FLUSH ASDIRECTED PRN Sodium Chloride 0.9% [Saline Flush] Med 04/02/21 05:22 Active 2.5 ml FLUSH ASDIRECTED PRN Sodium Chloride 0.9% [Saline Flush] Med 04/02/21 08:07 Ordered 2.5 ml FLUSH ASDIRECTED PRN Blood Culture x2 Reflex Set [OM.PC] Stat Ot 04/02/21 06:12 Ordered Saline Lock Insert [OM.PC] Routine Ot 04/02/21 08:07 Ordered Saline Lock Insert [OM.PC] Stat Ot 04/02/21 05:22 Ordered Sequential Compression Device [OM.PC] Per Unit Routine Ot 04/02/21 08:07 Ordered Medication Orders Levofloxacin/Dextrose 750 mg/ (Premix) 150 mls @ 100 mls/hr IV Q24H UTE Sodium Chloride (Sodium Chloride 0.9% 10 Ml Syringe) 10 ml FLUSH ASDIRECTED PRN PRN Reason: Keep Vein Open Last Admin: 04/02/21 07:05 Dose: 10 ml Documented by: ANTHONY Sodium Chloride (Sodium Chloride 0.9% 2.5 Ml Syringe) 2.5 ml FLUSH ASDIRECTED PRN PRN Reason: Keep Vein Open Last Admin: 04/02/21 07:05 Dose: 2.5 ml Documented by: ANTHONY
[2021-04-02] MEDS ORDERED: Lactated Ringers 1,000 ML IV ONE ×2 (08:40→13:46)
--- NOTE | 2021-04-02 09:04 | PCM.HP.2 ---
H&P History of Present Illness - General Date of Service: 04/02/21 Admit Problem/Dx: Admission Diagnosis/Problem Admission Diagnosis/Problem Pneumonia - History of Present Illness Initial Comments - Free Text/Narative: Patient is a 75-year-old female with past medical history of COPD on home oxygen usually uses 2 L continuously, atrial fibrillation on anticoagulation, possible lung ca, who came to the ER with chief complaints of shortness of breath. According to the family patient stated that she feels like she is going to and could not even make it to the car, eventually they were able to get her to the ER. In the ER patient was found to be hypoxic satting in 70s on room air, she was started on 3 L of oxygen and her oxygen improved to 92 to 92%. Chest x- ray significant for bilateral pneumonia, Covid test was negative, EKG showed atrial fibrillation rate controlled. Labs showed Laboratory Tests 03/28/21 04/02/21 04/02/21 14:15 04:50 04:50 WBC 14.54 H VBG pH 7.42 H VBG pCO2 53 H VBG pO2 34 Sodium 138 Potassium 3.9 BUN 23 H Creatinine 0.7 Lactic Acid 04/02/21 06:02 WBC VBG pH VBG pCO2 VBG pO2 Sodium Potassium BUN Creatinine Lactic Acid 2.2 H* Given patient's deconditioned status and increasing requirement of oxygen from her baseline patient was admitted to the hospital for possible COPD exacerbation as well as sepsis secondary to pneumonia. Blood cultures were obtained in the ER, IV fluid bolus was administered as well. Patient was started on IV antibiotics as well. Lactate was 2.2. - Related Data Allergies/Adverse Reactions: Allergies Allergy/AdvReac Type Severity Reaction Status Date / Time No Known Allergies Allergy Verified 04/02/21 05:08 Home Medications: Home Meds Memantine [Namenda] 5 mg PO BID 11/04/20 [History] Mirtazapine 7.5 - 15 mg PO QPM 11/04/20 [History] Rivaroxaban [Xarelto] 20 mg PO DAILY 11/04/20 [History] dilTIAZem HCL [Diltiazem 24Hr ER (LA)] 360 mg PO QAM 11/04/20 [History] traMADol [Ultram] 100 - 200 mg PO BID PRN 11/04/20 [History] Tiotropium [Spiriva HandiHaler] 1 puff INH DAILY 11/06/20 [History] Albuterol Sulfate [Albuterol Sulfate HFA] 8.5 gm INH Q6H PRN #1 inhaler 11/07/20 [Rx] QUEtiapine Fumarate [Seroquel] 12.5 mg PO QPM 28 Days #14 tablet 03/28/21 [Rx] Docusate Sodium [Colace] 100 mg PO BID PRN 04/02/21 [History] Ferrous Sulfate [Iron] 324 mg PO DAILY 04/02/21 [History] Past Medical History - Past Health History Medical/Surgical History: Denies Medical/Surgical History HEENT History: Reports: Hard of Hearing Cardiovascular History: Reports: Arrhythmia, [place] Other Cardiovascular History: no stents Respiratory History: Reports: COPD, Other (See Below) Other Respiratory History: on 3 liters 02 via nasal cannula; Lung CA with 5 radiation therapy sessions Gastrointestinal History: Reports: None Genitourinary History: Reports: None MECHANIC ASSISTANT History: Reports: Musculoskeletal History: Reports: None Neurological History: Reports: Other (See Below) Other Neuro History: Dementia Psychiatric History: Reports: None Endocrine/Metabolic History: Reports: None Insulin Pump Model and Tobacco Sprayer: None Hematologic History: Reports: Anticoagulation Therapy, Other (See Below) Other Hematologic History: on xarelto Immunologic History: Reports: None Oncologic (Cancer) History: Reports: Lung Dermatologic History: Reports: None - Infectious Disease History Infectious Disease History: Reports: Chicken Pox, Measles, Rubella - Past Surgical History HEENT Surgical History: Reports: Other (See Below) Other HEENT Surgeries/Procedures: ear surgery Respiratory Surgical History: Reports: None Dermatological Surgical History: Reports: None Social & Family History - Family History Family Medical History: No Pertinent Family History - Caffeine Use Caffeine Use: Reports: Coffee - Recreational Drug Use Recreational Drug Use: No H&P Review of Systems - Review of Systems: Review Of Systems: See Below General: Reports: Malaise, Weakness, Fatigue. Denies: Fever, Chills HEENT: Denies: Dysphasia, Ear Pain, Eye Pain Pulmonary: Reports: Shortness of Breath, Cough, Sputum. Denies: Wheezing, Pleuritic Chest Pain Cardiovascular: Reports: Dyspnea on Exertion. Denies: Chest Pain, Palpitations, Orthopnea Gastrointestinal: Denies: Abdominal Pain, Anorexia, Black Stool Genitourinary: Denies: Dysuria, Frequency, Burning Musculoskeletal: Denies: Neck Pain, Shoulder Pain, Arm Pain Skin: Denies: Cyanosis, Jaundice, Mottled Psychiatric: Reports: Anxiety. Denies: Confusion, Depression, Mood Lability, Agitation Exam - Exam Exam: See Below - Vital Signs Vital Signs: Last Vital Signs Temp 37.2 C 04/02/21 06:29 Pulse 99 04/02/21 08:09 Resp 24 H 04/02/21 08:09 BP 132/64 04/02/21 08:09 Pulse Ox 98 04/02/21 08:09 Weight: 38 kg - Exam Quality Assessment: Supplemental Oxygen General: Alert, Oriented, Cooperative, Mild Distress Neck: Supple, Trachea Midline Lungs: Clear to Auscultation, Normal Respiratory Effort Cardiovascular: Regular Rate, Normal S1, Normal S2, Irregular Rhythm GI/Abdominal Exam: Normal Bowel Sounds, Soft, Non-Tender - Patient Data Lab Results Last 24 hrs: Laboratory Results - last 24 hr 04/02/21 04/02/21 04/02/21 Range/Units 04:50 04:50 04:50 WBC 14.54 H (4.0-11.0) K/uL RBC 4.51 (4.30-5.90) M/uL Hgb 13.3 (12.0-16.0) g/dL Hct 42.7 (36.0-46.0) % MCV 94.7 (80.0-98.0) fL MCH 29.5 (27.0-32.0) pg MCHC 31.1 (31.0-37.0) g/dL RDW Std Deviation 50.0 (28.0-62.0) fl RDW Coeff of Omar 14 (11.0-15.0) % Plt Count 299 (150-400) K/uL MPV 9.70 (7.40-12.00) fL Neut % (Auto) 81.7 H (48.0-80.0) % Lymph % (Auto) 9.4 L (16.0-40.0) % Island % (Auto) 8.5 (0.0-15.0) % Eos % (Auto) 0.1 (0.0-7.0) % Baso % (Auto) 0.3 (0.0-1.5) % Neut # (Auto) 11.9 H (1.4-5.7) K/uL Lymph # (Auto) 1.4 (0.6-2.4) K/uL Island # (Auto) 1.2 H (0.0-0.8) K/uL Eos # (Auto) 0.0 (0.0-0.7) K/uL Baso # (Auto) 0.0 (0.0-0.1) K/uL Nucleated RBC % 0.0 /100WBC Nucleated RBCs # 0 K/uL Sodium 138 (136-145) mmol/L Potassium 3.9 (3.5-5.1) mmol/L Chloride 102 (98-107) mmol/L Carbon Dioxide 33.3 H (21.0-32.0) mmol/L BUN 23 H (7.0-18.0) mg/dL Creatinine 0.7 (0.6-1.0) mg/dL Est Cr Clr Drug Dosing 41.02 mL/min Estimated GFR (MDRD) > 60.0 ml/min Glucose 273 H (74-106) mg/dL Lactic Acid (0.4-2.0) mmol/L Calcium 8.9 (8.5-10.1) mg/dL Total Bilirubin 0.3 (0.2-1.0) mg/dL AST 21 (15-37) IU/L ALT 20 (14-63) IU/L Alkaline Phosphatase 94 (46-116) U/L Troponin I < 0.050 (0.000-0.056) ng/mL Total Protein 7.5 (6.4-8.2) g/dL Albumin 3.2 L (3.4-5.0) g/dL Globulin 4.3 H (2.6-4.0) g/dL Albumin/Globulin Ratio 0.7 L (0.9-1.6) SARS-CoV-2 RNA (ABHI) (NEGATIVE) 04/02/21 04/02/21 Range/Units 05:00 06:02 WBC (4.0-11.0) K/uL RBC (4.30-5.90) M/uL Hgb (12.0-16.0) g/dL Hct (36.0-46.0) % MCV (80.0-98.0) fL MCH (27.0-32.0) pg MCHC (31.0-37.0) g/dL RDW Std Deviation (28.0-62.0) fl RDW Coeff of Omar (11.0-15.0) % Plt Count (150-400) K/uL MPV (7.40-12.00) fL Neut % (Auto) (48.0-80.0) % Lymph % (Auto) (16.0-40.0) % Island % (Auto) (0.0-15.0) % Eos % (Auto) (0.0-7.0) % Baso % (Auto) (0.0-1.5) % Neut # (Auto) (1.4-5.7) K/uL Lymph # (Auto) (0.6-2.4) K/uL Island # (Auto) (0.0-0.8) K/uL Eos # (Auto) (0.0-0.7) K/uL Baso # (Auto) (0.0-0.1) K/uL Nucleated RBC % /100WBC Nucleated RBCs # K/uL Sodium (136-145) mmol/L Potassium (3.5-5.1) mmol/L Chloride (98-107) mmol/L Carbon Dioxide (21.0-32.0) mmol/L BUN (7.0-18.0) mg/dL Creatinine (0.6-1.0) mg/dL Est Cr Clr Drug Dosing mL/min Estimated GFR (MDRD) ml/min Glucose (74-106) mg/dL Lactic Acid 2.2 H* (0.4-2.0) mmol/L Calcium (8.5-10.1) mg/dL Total Bilirubin (0.2-1.0) mg/dL AST (15-37) IU/L ALT (14-63) IU/L Alkaline Phosphatase (46-116) U/L Troponin I (0.000-0.056) ng/mL Total Protein (6.4-8.2) g/dL Albumin (3.4-5.0) g/dL Globulin (2.6-4.0) g/dL Albumin/Globulin Ratio (0.9-1.6) SARS-CoV-2 RNA (ABHI) NEGATIVE (NEGATIVE) Result Diagrams: 04/02/21 04:50 04/02/21 04:50 Reji Results Last 24 hrs: Microbiology 04/02/21 06:45 Anaerobic Blood Culture - Final Blood - Venous - Lab Draw Sepsis Event Note - Focused Exam Vital Signs: Vital Signs Temp Pulse Resp BP Pulse Ox 04/02/21 08:09 99 24 H 132/64 98 04/02/21 07:17 105 H 22 H 122/55 L 95 04/02/21 06:29 37.2 C 90 28 H 136/61 98 04/02/21 05:30 88 24 H 134/66 98 04/02/21 05:00 94 L 04/02/21 04:50 36.8 C 76 32 H 157/72 H 72 L - Problem List (1) Bilateral pneumonia SNOMED Code(s): 567303402 ICD Code: J18.9 - PNEUMONIA, UNSPECIFIED ORGANISM Status: Acute Current Visit: Yes (2) COPD exacerbation SNOMED Code(s): 347463905 ICD Code: J44.1 - CHRONIC OBSTRUCTIVE PULMONARY DISEASE W (ACUTE) EXACERBATION Status: Acute Current Visit: Yes (3) Atrial fibrillation with rapid ventricular response SNOMED Code(s): 032708233391740 ICD Code: I48.91 - UNSPECIFIED ATRIAL FIBRILLATION Status: Acute Current Visit: No (4) Dementia SNOMED Code(s): 76615363 ICD Code: F03.90 - UNSPECIFIED DEMENTIA WITHOUT BEHAVIORAL DISTURBANCE Status: Acute Current Visit: No Qualifiers: Dementia type: unspecified type Dementia behavioral disturbance: with behavioral disturbance Qualified Code(s): F03.91 - Unspecified dementia with behavioral disturbance Problem List Initiated/Reviewed/Updated: Yes Orders Last 24hrs: Active Orders 24 hr Category Date Time Status Admission Status [Patient Status] [ADT] Stat ADT 04/02/21 06:52 Active Antiembolic Devices [RC] PER UNIT ROUTINE Care 04/02/21 08:09 Active Communication Order [RC] ROUTINE Care 04/02/21 08:10 Active Intake and Output [RC] QSHIFT Care 04/02/21 08:07 Active Oxygen Therapy [RC] PRN Care 04/02/21 08:07 Active RT Aerosol Therapy [RC] ASDIRECTED Care 04/02/21 07:57 Active RT Aerosol Therapy [RC] ASDIRECTED Care 04/02/21 08:09 Active Up With Assistance [RC] ASDIRECTED Care 04/02/21 08:07 Active VTE/DVT Education [RC] PER UNIT ROUTINE Care 04/02/21 08:07 Active Vital Signs [RC] Q4H Care 04/02/21 08:07 Active Regular Diet [DIET] Diet 04/02/21 Breakfast Active BASIC METABOLIC PANEL,BMP [CHEM] AM Lab 04/03/21 05:11 Ordered CBC WITH AUTO DIFF [HEME] AM Lab 04/03/21 05:11 Ordered CULTURE BLOOD [BC] Stat Lab 04/02/21 06:35 Received CULTURE BLOOD [BC] Stat Lab 04/02/21 06:45 Results MAGNESIUM [CHEM] AM Lab 04/03/21 05:11 Ordered PHOSPHORUS [CHEM] AM Lab 04/03/21 05:11 Ordered REFLEX LACTIC ACID YES OR NO [CHEM] Routine Lab 04/02/21 06:41 Received UA W/REJI RFLX IF INDICATED [URIN] Stat Lab 04/02/21 05:22 Ordered Acetaminophen [TylenoL] Med 04/02/21 08:07 Ordered 650 mg PO Q4H PRN Albuterol/Ipratropium [DuoNeb 3.0-0.5 MG/3 ML] Med 04/02/21 10:00 Ordered 3 ml NEB Q4HRRT Docusate Sodium [Colace] Med 04/02/21 08:07 Ordered 100 mg PO BID PRN Lactated Ringers [Ringers, Lactated] 1,000 ml Med 04/02/21 08:40 Ordered IV .BOLUS Lactated Ringers [Ringers, Lactated] 1,000 ml Med 04/02/21 08:15 Ordered IV Q8H Levofloxacin/Dextrose 5%-Water [Levaquin in D5W 750 MG/ Med 04/02/21 08:15 Ordered 150 ML] 750 mg Premix Bag 1 bag IV Q24H Ondansetron [Zofran] Med 04/02/21 08:07 Ordered 4 mg IVPUSH Q4H PRN Sodium Chloride 0.9% [Saline Flush] Med 04/02/21 08:07 Ordered 2.5 ml FLUSH ASDIRECTED PRN Blood Culture x2 Reflex Set [OM.PC] Stat Oth 04/02/21 06:12 Ordered Saline Lock Insert [OM.PC] Routine Oth 04/02/21 08:07 Ordered Sequential Compression Device [OM.PC] Per Unit Routine Oth 04/02/21 08:07 Ordered Medication Orders Acetaminophen (Acetaminophen 325 Mg Tab) 650 mg PO Q4H PRN PRN Reason: Pain (Mild 1-3)/fever Albuterol/Ipratropium (Albuterol/Ipratropium 3.0-0.5 Mg/3 Ml Neb Soln) 3 ml NEB Q4HRRT UTE Docusate Sodium (Docusate Sodium 100 Mg Cap) 100 mg PO BID PRN PRN Reason: Constipation Levofloxacin/Dextrose 750 mg/ (Premix) 150 mls @ 100 mls/hr IV Q24H UTE Lactated Ringer's (Ringers, Lactated) 1,000 mls @ 125 mls/hr IV Q8H UTE Lactated Ringer's (Ringers, Lactated) 1,000 mls @ 999 mls/hr IV .BOLUS ONE Stop: 04/02/21 09:40 Ondansetron HCl (Ondansetron 4 Mg/2 Ml Sdv) 4 mg IVPUSH Q4H PRN PRN Reason: Nausea Sodium Chloride (Sodium Chloride 0.9% 2.5 Ml Syringe) 2.5 ml FLUSH ASDIRECTED PRN PRN Reason: Keep Vein Open Assessment/Plan Comment:: 75-year-old female admitted for sepsis secondary to pneumonia Underlying COPD component as well Continue oxygen via nasal cannula currently patient requiring 3 L of oxygen Start patient on broad-spectrum antibiotics including IV vancomycin and Zosyn Follow-up on blood cultures Obtain a UA and reflex urine cultures if indicated based on UA Continue hydration with IV fluids, patient may require additional bolus Follow-up on repeat lactate Will try to obtain records from oncology for patient's ongoing lung CA work-up Patient currently unsure of her CODE STATUS so we will keep full code for now unless she decides otherwise after discussing with her daughter.. We will try to reach out to daughter
[2021-04-02] MEDS ORDERED: Levofloxacin/Dextrose 5%-Water 750 MG in Premix Bag 1 BAG IV SCH (09:30)
[2021-04-02] MEDS: Albuterol/Ipratropium 3.0-0.5 MG/3 ML Neb Soln NEB SCH ×4 (09:40→21:08)
[2021-04-02] MEDS: Lactated Ringers 1,000 ML IV SCH ×2 (10:22→17:09)
[2021-04-02] MEDS ORDERED: traMADol 50 MG Tab PO PRN (13:47)
[2021-04-02] MEDS ORDERED: Mirtazapine 15 MG Tab PO PRN (13:53)
[2021-04-02] MEDS: Diltiazem 180 MG Cap.CD PO SCH (16:04)
[2021-04-02] MEDS: Piperacillin/Tazobactam 3.375 GM in Sodium Chloride 0.9% 50 ML IV SCH ×2 (16:05→20:46)
--- NOTE | 2021-04-02 16:45 | PCM.SN.2 ---
- Free Text/Narrative Note: Spoke to daughter in detail, patient is DNR/DNI, patient has history of lung cancer and she was being treated with radiotherapy in [place], patient was not a candidate for any other chemotherapy. Daughter states that oncologist at one point had recommended palliative care. Here in [place] patient follows up with Dr. Stephen, recent CAT scan findings noted and discussed with daughter. Patient's current clinical status discussed with daughter, I did explain to her that patient is septic and on broad-spectrum antibiotics . All the questions and concerns addressed. Id,
[2021-04-02] MEDS: Rivaroxaban 10 MG Tab PO SCH (17:09)
[2021-04-02] MEDS: QUEtiapine 25 MG Tab PO SCH (17:09)
[2021-04-02] MEDS: Mirtazapine 15 MG Tab PO SCH (17:10)
[2021-04-02 19:26] LABS: HEMOGLOBIN A1C 6.4 %
[2021-04-02] MEDS: Memantine 10 MG Tab PO SCH (21:06)
[2021-04-03] MEDS: Lactated Ringers 1,000 ML IV SCH ×2 (02:27→08:07)
[2021-04-03] MEDS: Albuterol/Ipratropium 3.0-0.5 MG/3 ML Neb Soln NEB SCH ×6 (02:32→21:22)
[2021-04-03] MEDS: Piperacillin/Tazobactam 3.375 GM in Sodium Chloride 0.9% 50 ML IV SCH ×4 (02:32→19:50)
[2021-04-03 06:34] LABS: BLOOD UREA NITROGEN,BUN 13 mg/dL (7.0-18.0); CARBON DIOXIDE,CO2 36.7 mmol/L (21.0-32.0); CHLORIDE,CL 107 mmol/L (98-107); GLUCOSE RANDOM 150 mg/dL (74-106); SODIUM,NA 143 mmol/L (136-145)
[2021-04-03] MEDS: Diltiazem 180 MG Cap.CD PO SCH (08:32)
[2021-04-03] MEDS: Memantine 10 MG Tab PO SCH ×2 (08:33→21:22)
[2021-04-03] MEDS ORDERED: methylPREDNISolone Sodium Succinate 40 MG/1 ML SDV IVPUSH ONE (09:00)
[2021-04-03] MEDS: Azithromycin 500 MG in Sodium Chloride 0.9% 250 ML IV SCH (09:03)
--- NOTE | 2021-04-03 12:44 | PCM.PN ---
- General Info Date of Service: 04/03/21 Admission Dx/Problem (Free Text): Admission Diagnosis/Problem Admission Diagnosis/Problem Pneumonia Subjective Update: Had some difficulty with shortness of breath and significant wheezing this morning denies any chest pain. Denies any significant cough. No family at bedside. Denies any concerns besides breathing morning. Asking when she can go home. Functional Status: Reports: Pain Controlled, Tolerating Diet, Ambulating, Urinating - Review of Systems General: Reports: Fatigue, Malaise. Denies: Weakness Pulmonary: Reports: Shortness of Breath, Wheezing Cardiovascular: Reports: No Symptoms. Denies: Chest Pain Gastrointestinal: Reports: No Symptoms. Denies: Abdominal Pain, Nausea, Vomiting Genitourinary: Reports: No Symptoms Musculoskeletal: Reports: No Symptoms Skin: Reports: No Symptoms Neurological: Reports: No Symptoms Psychiatric: Reports: No Symptoms - Patient Data Vitals - Most Recent: Last Vital Signs Temp 98.4 F 04/03/21 11:40 Pulse 82 04/03/21 11:40 Resp 14 04/03/21 11:40 BP 142/67 H 04/03/21 11:40 Pulse Ox 91 L 04/03/21 11:40 Weight - Most Recent: 37.467 kg I&O - Last 24 Hours: Intake & Output 04/02/21 04/03/21 04/03/21 22:59 06:59 14:59 Intake Total 480 1360 Output Total 600 725 Balance -120 635 Lab Results Last 24 Hours: Laboratory Results - last 24 hr 04/02/21 04/02/21 04/02/21 Range/Units 04:50 16:13 18:39 WBC (4.0-11.0) K/uL RBC (4.30-5.90) M/uL Hgb (12.0-16.0) g/dL Hct (36.0-46.0) % MCV (80.0-98.0) fL MCH (27.0-32.0) pg MCHC (31.0-37.0) g/dL RDW Std Deviation (28.0-62.0) fl RDW Coeff of Omar (11.0-15.0) % Plt Count (150-400) K/uL MPV (7.40-12.00) fL Neut % (Auto) (48.0-80.0) % Lymph % (Auto) (16.0-40.0) % [place] % (Auto) (0.0-15.0) % Eos % (Auto) (0.0-7.0) % Baso % (Auto) (0.0-1.5) % Neut # (Auto) (1.4-5.7) K/uL Lymph # (Auto) (0.6-2.4) K/uL [place] # (Auto) (0.0-0.8) K/uL Eos # (Auto) (0.0-0.7) K/uL Baso # (Auto) (0.0-0.1) K/uL Nucleated RBC % /100WBC Nucleated RBCs # K/uL Sodium (136-145) mmol/L Potassium (3.5-5.1) mmol/L Chloride (98-107) mmol/L Carbon Dioxide (21.0-32.0) mmol/L BUN (7.0-18.0) mg/dL Creatinine (0.6-1.0) mg/dL Est Cr Clr Drug Dosing mL/min Estimated GFR (MDRD) ml/min Glucose (74-106) mg/dL Hemoglobin A1c 6.4 H (4.5 - 6.2) % Lactic Acid 3.7 H* (0.4-2.0) mmol/L Calcium (8.5-10.1) mg/dL Phosphorus (2.6-4.7) mg/dL Magnesium (1.8-2.4) mg/dL Lactate Dehydrogenase (81-234) U/L Urine Color YELLOW Urine Appearance CLEAR Urine pH 6.0 (5.0-8.0) Ur Specific [place] 1.010 (1.001-1.035) Urine Protein NEGATIVE (NEGATIVE) mg/dL Urine Glucose (UA) 500 H (NEGATIVE) mg/dL Urine Ketones NEGATIVE (NEGATIVE) mg/dL Urine Occult Blood SMALL H (NEGATIVE) Urine Nitrite NEGATIVE (NEGATIVE) Urine Bilirubin NEGATIVE (NEGATIVE) Urine Urobilinogen 0.2 (<2.0) EU/dL Ur Leukocyte Esterase NEGATIVE (NEGATIVE) Urine RBC 1-3 (0-2/HPF) Urine WBC 0-2 (0-5/HPF) Ur Epithelial Cells FEW (NONE-FEW) Urine Bacteria RARE (NEGATIVE) SARS-CoV-2 RNA (ABHI) (NEGATIVE) 04/02/21 04/03/21 04/03/21 Range/Units 22:08 06:00 06:00 WBC 11.25 H (4.0-11.0) K/uL RBC 3.74 L (4.30-5.90) M/uL Hgb 10.9 L (12.0-16.0) g/dL Hct 35.4 L (36.0-46.0) % MCV 94.7 (80.0-98.0) fL MCH 29.1 (27.0-32.0) pg MCHC 30.8 L (31.0-37.0) g/dL RDW Std Deviation 49.8 (28.0-62.0) fl RDW Coeff of Omar 14 (11.0-15.0) % Plt Count 228 (150-400) K/uL MPV 9.30 (7.40-12.00) fL Neut % (Auto) 87.0 H (48.0-80.0) % Lymph % (Auto) 7.0 L (16.0-40.0) % [place] % (Auto) 5.8 (0.0-15.0) % Eos % (Auto) 0.0 (0.0-7.0) % Baso % (Auto) 0.2 (0.0-1.5) % Neut # (Auto) 9.8 H (1.4-5.7) K/uL Lymph # (Auto) 0.8 (0.6-2.4) K/uL [place] # (Auto) 0.7 (0.0-0.8) K/uL Eos # (Auto) 0.0 (0.0-0.7) K/uL Baso # (Auto) 0.0 (0.0-0.1) K/uL Nucleated RBC % 0.0 /100WBC Nucleated RBCs # 0 K/uL Sodium 143 (136-145) mmol/L Potassium 4.0 (3.5-5.1) mmol/L Chloride 107 (98-107) mmol/L Carbon Dioxide 36.7 H (21.0-32.0) mmol/L BUN 13 (7.0-18.0) mg/dL Creatinine 0.5 L (0.6-1.0) mg/dL Est Cr Clr Drug Dosing 56.62 mL/min Estimated GFR (MDRD) > 60.0 ml/min Glucose 150 H (74-106) mg/dL Hemoglobin A1c (4.5 - 6.2) % Lactic Acid (0.4-2.0) mmol/L Calcium 8.4 L (8.5-10.1) mg/dL Phosphorus 3.7 (2.6-4.7) mg/dL Magnesium 2.0 (1.8-2.4) mg/dL Lactate Dehydrogenase 240 H (81-234) U/L Urine Color Urine Appearance Urine pH (5.0-8.0) Ur Specific [place] (1.001-1.035) Urine Protein (NEGATIVE) mg/dL Urine Glucose (UA) (NEGATIVE) mg/dL Urine Ketones (NEGATIVE) mg/dL Urine Occult Blood (NEGATIVE) Urine Nitrite (NEGATIVE) Urine Bilirubin (NEGATIVE) Urine Urobilinogen (<2.0) EU/dL Ur Leukocyte Esterase (NEGATIVE) Urine RBC (0-2/HPF) Urine WBC (0-5/HPF) Ur Epithelial Cells (NONE-FEW) Urine Bacteria (NEGATIVE) SARS-CoV-2 RNA (ABHI) (NEGATIVE) 04/03/21 04/03/21 Range/Units 06:00 10:54 WBC (4.0-11.0) K/uL RBC (4.30-5.90) M/uL Hgb (12.0-16.0) g/dL Hct (36.0-46.0) % MCV (80.0-98.0) fL MCH (27.0-32.0) pg MCHC (31.0-37.0) g/dL RDW Std Deviation (28.0-62.0) fl RDW Coeff of Omar (11.0-15.0) % Plt Count (150-400) K/uL MPV (7.40-12.00) fL Neut % (Auto) (48.0-80.0) % Lymph % (Auto) (16.0-40.0) % [place] % (Auto) (0.0-15.0) % Eos % (Auto) (0.0-7.0) % Baso % (Auto) (0.0-1.5) % Neut # (Auto) (1.4-5.7) K/uL Lymph # (Auto) (0.6-2.4) K/uL [place] # (Auto) (0.0-0.8) K/uL Eos # (Auto) (0.0-0.7) K/uL Baso # (Auto) (0.0-0.1) K/uL Nucleated RBC % /100WBC Nucleated RBCs # K/uL Sodium (136-145) mmol/L Potassium (3.5-5.1) mmol/L Chloride (98-107) mmol/L Carbon Dioxide (21.0-32.0) mmol/L BUN (7.0-18.0) mg/dL Creatinine (0.6-1.0) mg/dL Est Cr Clr Drug Dosing mL/min Estimated GFR (MDRD) ml/min Glucose (74-106) mg/dL Hemoglobin A1c (4.5 - 6.2) % Lactic Acid 0.8 (0.4-2.0) mmol/L Calcium (8.5-10.1) mg/dL Phosphorus (2.6-4.7) mg/dL Magnesium (1.8-2.4) mg/dL Lactate Dehydrogenase (81-234) U/L Urine Color Urine Appearance Urine pH (5.0-8.0) Ur Specific [place] (1.001-1.035) Urine Protein (NEGATIVE) mg/dL Urine Glucose (UA) (NEGATIVE) mg/dL Urine Ketones (NEGATIVE) mg/dL Urine Occult Blood (NEGATIVE) Urine Nitrite (NEGATIVE) Urine Bilirubin (NEGATIVE) Urine Urobilinogen (<2.0) EU/dL Ur Leukocyte Esterase (NEGATIVE) Urine RBC (0-2/HPF) Urine WBC (0-5/HPF) Ur Epithelial Cells (NONE-FEW) Urine Bacteria (NEGATIVE) SARS-CoV-2 RNA (ABHI) NEGATIVE (NEGATIVE) Reji Results Last 24 Hours: Microbiology 04/02/21 06:45 Aerobic Blood Culture - Preliminary Blood - Venous - Lab Draw NO GROWTH AFTER 1 DAY Anaerobic Blood Culture - Final 04/02/21 06:35 Aerobic Blood Culture - Preliminary Blood - Venous NO GROWTH AFTER 1 DAY Anaerobic Blood Culture - Preliminary NO GROWTH AFTER 1 DAY Med Orders - Current: Current Medications Acetaminophen (Acetaminophen 325 Mg Tab) 650 mg PO Q4H PRN PRN Reason: Pain (Mild 1-3)/fever Albuterol/Ipratropium (Albuterol/Ipratropium 3.0-0.5 Mg/3 Ml Neb Soln) 3 ml NEB Q4HRRT [facility] Last Admin: 04/03/21 09:02 Dose: 3 ml Documented by: Diltiazem HCl (Diltiazem 180 Mg Cap.Cd) 360 mg PO DAILY [facility] Last Admin: 04/03/21 08:32 Dose: 360 mg Documented by: Docusate Sodium (Docusate Sodium 100 Mg Cap) 100 mg PO BID PRN PRN Reason: Constipation Piperacillin Sod/Tazobactam (Sod 3.375 gm/ Sodium Chloride) 50 mls @ 100 mls/hr IV Q6H [facility] Last Admin: 04/03/21 07:55 Dose: 100 mls/hr Documented by: Vancomycin HCl 500 mg/ Sodium (Chloride) 100 mls @ 100 mls/hr IV Q12H [facility] Last Admin: 04/03/21 06:40 Dose: 100 mls/hr Documented by: Azithromycin 500 mg/ Sodium (Chloride) 250 mls @ 250 mls/hr IV DAILY [facility] Last Admin: 04/03/21 09:03 Dose: 250 mls/hr Documented by: Memantine (Memantine 10 Mg Tab) 5 mg PO BID [facility] Last Admin: 04/03/21 08:33 Dose: 5 mg Documented by: Methylprednisolone Sodium Succinate (Methylprednisolone Sodium Succinate 40 Mg/1 Ml Sdv) 40 mg IVPUSH Q8H [facility] Mirtazapine (Mirtazapine 15 Mg Tab) 7.5 mg PO QPM [facility] Last Admin: 04/02/21 17:10 Dose: 7.5 mg Documented by: Mirtazapine (Mirtazapine 15 Mg Tab) 7.5 mg PO QPM PRN PRN Reason: INSOMNIA Ondansetron HCl (Ondansetron 4 Mg/2 Ml Sdv) 4 mg IVPUSH Q4H PRN PRN Reason: Nausea Quetiapine Fumarate (Quetiapine 25 Mg Tab) 12.5 mg PO QPM [facility] Last Admin: 04/02/21 17:09 Dose: 12.5 mg Documented by: Rivaroxaban (Rivaroxaban 10 Mg Tab) 20 mg PO WITHDINNER [facility] Last Admin: 04/02/21 17:09 Dose: 20 mg Documented by: Sodium Chloride (Sodium Chloride 0.9% 2.5 Ml Syringe) 2.5 ml FLUSH ASDIRECTED PRN PRN Reason: Keep Vein Open Tramadol HCl (Tramadol 50 Mg Tab) 100 - 200 mg PO BID PRN PRN Reason: Pain Vancomycin HCl (Pharmacy To Dose - Vancomycin) 1 dose .XX ASDIRECTED UTE Discontinued Medications Albuterol (Albuterol 0.5% 5 Mg/Ml Neb Soln 20 Ml Bottle) 10 mg NEB ONETIME ONE Stop: 04/02/21 05:31 Last Admin: 04/02/21 05:35 Dose: 10 mg Documented by: Albuterol/Ipratropium (Albuterol/Ipratropium 3.0-0.5 Mg/3 Ml Neb Soln) 3 ml NEB ONETIME ONE Stop: 04/02/21 07:58 Last Admin: 04/02/21 08:02 Dose: 3 ml Documented by: Albuterol/Ipratropium (Albuterol/Ipratropium 3.0-0.5 Mg/3 Ml Neb Soln) Confirm Administered Dose 3 ml .ROUTE .STK-MED ONE Stop: 04/02/21 07:58 Last Admin: 04/02/21 09:17 Dose: Not Given Documented by: Ceftriaxone Sodium/Dextrose 1 (gm/ Premix) 50 mls @ 100 mls/hr IV ONETIME ONE Stop: 04/02/21 06:41 Last Admin: 04/02/21 06:28 Dose: 100 mls/hr Documented by: Sodium Chloride (Normal Saline) 1,000 mls @ 1,000 mls/hr IV .Bolus ONE Stop: 04/02/21 07:44 Last Admin: 04/02/21 07:04 Dose: 1,000 mls/hr Documented by: Levofloxacin/Dextrose 750 mg/ (Premix) 150 mls @ 100 mls/hr IV Q48H [facility] Last Admin: 04/02/21 10:22 Dose: 100 mls/hr Documented by: Lactated Ringer's (Ringers, Lactated) 1,000 mls @ 125 mls/hr IV Q8H [facility] Last Infusion: 04/03/21 08:07 Dose: 0 mls/hr Documented by: Lactated Ringer's (Ringers, Lactated) 1,000 mls @ 999 mls/hr IV .BOLUS ONE Stop: 04/02/21 09:40 Last Admin: 04/02/21 09:16 Dose: 999 mls/hr Documented by: Lactated Ringer's (Ringers, Lactated) 1,000 mls @ 999 mls/hr IV .BOLUS ONE Stop: 04/02/21 14:46 Last Admin: 04/02/21 14:18 Dose: 999 mls/hr Documented by: Methylprednisolone Sodium Succinate (Methylprednisolone Sodium Succinate 125 Mg/2 Ml Sdv) 125 mg IVPUSH ONETIME ONE Stop: 04/02/21 05:30 Last Admin: 04/02/21 05:59 Dose: 125 mg Documented by: Methylprednisolone Sodium Succinate (Methylprednisolone Sodium Succinate 40 Mg/1 Ml Sdv) 40 mg IVPUSH ONETIME ONE Stop: 04/03/21 09:01 Last Admin: 04/03/21 09:13 Dose: 40 mg Documented by: Sodium Chloride (Sodium Chloride 0.9% 10 Ml Syringe) 10 ml FLUSH ASDIRECTED PRN PRN Reason: Keep Vein Open Last Admin: 04/02/21 07:05 Dose: 10 ml Documented by: Sodium Chloride (Sodium Chloride 0.9% 2.5 Ml Syringe) 2.5 ml FLUSH ASDIRECTED PRN PRN Reason: Keep Vein Open Last Admin: 04/02/21 07:05 Dose: 2.5 ml Documented by: - Exam Quality Assessment: Supplemental Oxygen (Home O2 dependent at 2 L), DVT Prophyla xis General: Alert, Oriented (Has dementia at baseline), Cooperative, Mild Distress (Dyspnea with significant wheezing) Lungs: Wheezing (Throughout). No: Normal Respiratory Effort (Dyspnea at rest sitting in bed) Cardiovascular: Regular Rate, Regular Rhythm GI/Abdominal Exam: Normal Bowel Sounds, Soft, Non-Tender Back Exam: Normal Inspection, Full Range of Motion Extremities: Normal Inspection, Normal Range of Motion, Non-Tender, No Pedal Edema Neurological: No New Focal Deficit Psy/Mental Status: Alert, Normal Affect, Normal Mood - Patient Data Lab Results Last 24 hrs: Laboratory Results - last 24 hr 04/02/21 04/02/21 04/02/21 Range/Units 04:50 16:13 18:39 WBC (4.0-11.0) K/uL RBC (4.30-5.90) M/uL Hgb (12.0-16.0) g/dL Hct (36.0-46.0) % MCV (80.0-98.0) fL MCH (27.0-32.0) pg MCHC (31.0-37.0) g/dL RDW Std Deviation (28.0-62.0) fl RDW Coeff of Omar (11.0-15.0) % Plt Count (150-400) K/uL MPV (7.40-12.00) fL Neut % (Auto) (48.0-80.0) % Lymph % (Auto) (16.0-40.0) % [place] % (Auto) (0.0-15.0) % Eos % (Auto) (0.0-7.0) % Baso % (Auto) (0.0-1.5) % Neut # (Auto) (1.4-5.7) K/uL Lymph # (Auto) (0.6-2.4) K/uL [place] # (Auto) (0.0-0.8) K/uL Eos # (Auto) (0.0-0.7) K/uL Baso # (Auto) (0.0-0.1) K/uL Nucleated RBC % /100WBC Nucleated RBCs # K/uL Sodium (136-145) mmol/L Potassium (3.5-5.1) mmol/L Chloride (98-107) mmol/L Carbon Dioxide (21.0-32.0) mmol/L BUN (7.0-18.0) mg/dL Creatinine (0.6-1.0) mg/dL Est Cr Clr Drug Dosing mL/min Estimated GFR (MDRD) ml/min Glucose (74-106) mg/dL Hemoglobin A1c 6.4 H (4.5 - 6.2) % Lactic Acid 3.7 H* (0.4-2.0) mmol/L Calcium (8.5-10.1) mg/dL Phosphorus (2.6-4.7) mg/dL Magnesium (1.8-2.4) mg/dL Lactate Dehydrogenase (81-234) U/L Urine Color YELLOW Urine Appearance CLEAR Urine pH 6.0 (5.0-8.0) Ur Specific [place] 1.010 (1.001-1.035) Urine Protein NEGATIVE (NEGATIVE) mg/dL Urine Glucose (UA) 500 H (NEGATIVE) mg/dL Urine Ketones NEGATIVE (NEGATIVE) mg/dL Urine Occult Blood SMALL H (NEGATIVE) Urine Nitrite NEGATIVE (NEGATIVE) Urine Bilirubin NEGATIVE (NEGATIVE) Urine Urobilinogen 0.2 (<2.0) EU/dL Ur Leukocyte Esterase NEGATIVE (NEGATIVE) Urine RBC 1-3 (0-2/HPF) Urine WBC 0-2 (0-5/HPF) Ur Epithelial Cells FEW (NONE-FEW) Urine Bacteria RARE (NEGATIVE) SARS-CoV-2 RNA (ABHI) (NEGATIVE) 04/02/21 04/03/21 04/03/21 Range/Units 22:08 06:00 06:00 WBC 11.25 H (4.0-11.0) K/uL RBC 3.74 L (4.30-5.90) M/uL Hgb 10.9 L (12.0-16.0) g/dL Hct 35.4 L (36.0-46.0) % MCV 94.7 (80.0-98.0) fL MCH 29.1 (27.0-32.0) pg MCHC 30.8 L (31.0-37.0) g/dL RDW Std Deviation 49.8 (28.0-62.0) fl RDW Coeff of Omar 14 (11.0-15.0) % Plt Count 228 (150-400) K/uL MPV 9.30 (7.40-12.00) fL Neut % (Auto) 87.0 H (48.0-80.0) % Lymph % (Auto) 7.0 L (16.0-40.0) % [place] % (Auto) 5.8 (0.0-15.0) % Eos % (Auto) 0.0 (0.0-7.0) % Baso % (Auto) 0.2 (0.0-1.5) % Neut # (Auto) 9.8 H (1.4-5.7) K/uL Lymph # (Auto) 0.8 (0.6-2.4) K/uL [place] # (Auto) 0.7 (0.0-0.8) K/uL Eos # (Auto) 0.0 (0.0-0.7) K/uL Baso # (Auto) 0.0 (0.0-0.1) K/uL Nucleated RBC % 0.0 /100WBC Nucleated RBCs # 0 K/uL Sodium 143 (136-145) mmol/L Potassium 4.0 (3.5-5.1) mmol/L Chloride 107 (98-107) mmol/L Carbon Dioxide 36.7 H (21.0-32.0) mmol/L BUN 13 (7.0-18.0) mg/dL Creatinine 0.5 L (0.6-1.0) mg/dL Est Cr Clr Drug Dosing 56.62 mL/min Estimated GFR (MDRD) > 60.0 ml/min Glucose 150 H (74-106) mg/dL Hemoglobin A1c (4.5 - 6.2) % Lactic Acid (0.4-2.0) mmol/L Calcium 8.4 L (8.5-10.1) mg/dL Phosphorus 3.7 (2.6-4.7) mg/dL Magnesium 2.0 (1.8-2.4) mg/dL Lactate Dehydrogenase 240 H (81-234) U/L Urine Color Urine Appearance Urine pH (5.0-8.0) Ur Specific [place] (1.001-1.035) Urine Protein (NEGATIVE) mg/dL Urine Glucose (UA) (NEGATIVE) mg/dL Urine Ketones (NEGATIVE) mg/dL Urine Occult Blood (NEGATIVE) Urine Nitrite (NEGATIVE) Urine Bilirubin (NEGATIVE) Urine Urobilinogen (<2.0) EU/dL Ur Leukocyte Esterase (NEGATIVE) Urine RBC (0-2/HPF) Urine WBC (0-5/HPF) Ur Epithelial Cells (NONE-FEW) Urine Bacteria (NEGATIVE) SARS-CoV-2 RNA (ABHI) (NEGATIVE) 04/03/21 04/03/21 Range/Units 06:00 10:54 WBC (4.0-11.0) K/uL RBC (4.30-5.90) M/uL Hgb (12.0-16.0) g/dL Hct (36.0-46.0) % MCV (80.0-98.0) fL MCH (27.0-32.0) pg MCHC (31.0-37.0) g/dL RDW Std Deviation (28.0-62.0) fl RDW Coeff of Omar (11.0-15.0) % Plt Count (150-400) K/uL MPV (7.40-12.00) fL Neut % (Auto) (48.0-80.0) % Lymph % (Auto) (16.0-40.0) % [place] % (Auto) (0.0-15.0) % Eos % (Auto) (0.0-7.0) % Baso % (Auto) (0.0-1.5) % Neut # (Auto) (1.4-5.7) K/uL Lymph # (Auto) (0.6-2.4) K/uL [place] # (Auto) (0.0-0.8) K/uL Eos # (Auto) (0.0-0.7) K/uL Baso # (Auto) (0.0-0.1) K/uL Nucleated RBC % /100WBC Nucleated RBCs # K/uL Sodium (136-145) mmol/L Potassium (3.5-5.1) mmol/L Chloride (98-107) mmol/L Carbon Dioxide (21.0-32.0) mmol/L BUN (7.0-18.0) mg/dL Creatinine (0.6-1.0) mg/dL Est Cr Clr Drug Dosing mL/min Estimated GFR (MDRD) ml/min Glucose (74-106) mg/dL Hemoglobin A1c (4.5 - 6.2) % Lactic Acid 0.8 (0.4-2.0) mmol/L Calcium (8.5-10.1) mg/dL Phosphorus (2.6-4.7) mg/dL Magnesium (1.8-2.4) mg/dL Lactate Dehydrogenase (81-234) U/L Urine Color Urine Appearance Urine pH (5.0-8.0) Ur Specific [place] (1.001-1.035) Urine Protein (NEGATIVE) mg/dL Urine Glucose (UA) (NEGATIVE) mg/dL Urine Ketones (NEGATIVE) mg/dL Urine Occult Blood (NEGATIVE) Urine Nitrite (NEGATIVE) Urine Bilirubin (NEGATIVE) Urine Urobilinogen (<2.0) EU/dL Ur Leukocyte Esterase (NEGATIVE) Urine RBC (0-2/HPF) Urine WBC (0-5/HPF) Ur Epithelial Cells (NONE-FEW) Urine Bacteria (NEGATIVE) SARS-CoV-2 RNA (ABHI) NEGATIVE (NEGATIVE) Result Diagrams: 04/03/21 06:00 04/03/21 06:00 Reji Results Last 24 hrs: Microbiology 04/02/21 06:45 Aerobic Blood Culture - Preliminary Blood - Venous - Lab Draw NO GROWTH AFTER 1 DAY Anaerobic Blood Culture - Final 04/02/21 06:35 Aerobic Blood Culture - Preliminary Blood - Venous NO GROWTH AFTER 1 DAY Anaerobic Blood Culture - Preliminary NO GROWTH AFTER 1 DAY Sepsis Event Note - Evaluation Sepsis Screening Result: No Definite Risk - Focused Exam Vital Signs: Vital Signs Temp Pulse Resp BP Pulse Ox 04/03/21 11:40 98.4 F 82 14 142/67 H 91 L 04/03/21 08:57 91 L 04/03/21 08:45 145/55 H 86 L 04/03/21 07:37 97.4 F 74 14 140/53 L 91 L 04/03/21 04:21 98.1 F 81 20 139/63 95 04/03/21 01:00 98 F 98 20 145/82 H 95 - Problem List & Annotations (1) Acute on chronic respiratory failure with hypoxia SNOMED Code(s): 63328538, 590370068 Code(s): J96.21 - ACUTE AND CHRONIC RESPIRATORY FAILURE WITH HYPOXIA Status: Acute Current Visit: Yes (2) Community acquired pneumonia SNOMED Code(s): 925568818 Code(s): J18.9 - PNEUMONIA, UNSPECIFIED ORGANISM Status: Acute Current Visit: Yes Qualifiers: Laterality: unspecified laterality Qualified Code(s): J18.9 - Pneumonia, unspecified organism (3) COPD exacerbation SNOMED Code(s): 695431934 Code(s): J44.1 - CHRONIC OBSTRUCTIVE PULMONARY DISEASE W (ACUTE) EXACERBATION Status: Acute Current Visit: Yes (4) Lung cancer SNOMED Code(s): 074320039 Code(s): C34.90 - MALIGNANT NEOPLASM OF UNSP PART OF UNSP BRONCHUS OR LUNG Status: Chronic Current Visit: Yes (5) End stage COPD SNOMED Code(s): 504094391 Code(s): J44.9 - CHRONIC OBSTRUCTIVE PULMONARY DISEASE, UNSPECIFIED Status: Chronic Current Visit: Yes (6) Bilateral pneumonia SNOMED Code(s): 214458870 Code(s): J18.9 - PNEUMONIA, UNSPECIFIED ORGANISM Status: Acute Current Visit: Yes (7) Dementia SNOMED Code(s): 50449970 Code(s): F03.90 - UNSPECIFIED DEMENTIA WITHOUT BEHAVIORAL DISTURBANCE Status: Chronic Current Visit: No Qualifiers: Dementia type: unspecified type Dementia behavioral disturbance: with behavioral disturbance Qualified Code(s): F03.91 - Unspecified dementia with behavioral disturbance (8) Atrial fibrillation SNOMED Code(s): 48102238 Code(s): I48.91 - UNSPECIFIED ATRIAL FIBRILLATION Status: Chronic Current Visit: Yes - Problem List Review Problem List Initiated/Reviewed/Updated: Yes - My Orders Last 24 Hours: My Active Orders 04/03/21 09:00 Azithromycin [Zithromax] 500 mg Sodium Chloride 0.9% [Normal Saline (AdvBag)] 250 ml IV DAILY 04/03/21 17:00 methylPREDNISolone Sod Succ [Solu-MEDROL] 40 mg IVPUSH Q8H - Plan Plan:: 75-year-old female admitted for sepsis secondary to community-acquired pneumonia 1. Acute on chronic hypoxic respiratory failure, community-acquired pneumonia -Due to history of lung cancer and COPD will treat with broad-spectrum antibiotics add azithromycin to vancomycin and Zosyn today. -Patient is on home O2 at 2 L -O2 to keep sats greater than 88%, wean as possible down to home 2 L patient currently on 2-1/2 to 3 L -Blood cultures negative x1 day -Sepsis resolved -Discontinue IV fluids 2. 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 Atrial fibrillation -Patient stable and converted -Continue home medications 4. Lung cancer -Records obtained from [facility]. Patient was seen by Dr. Stephen she was transitioning care here from [place]. History of stage I non- small cell lung cancer not a surgical admit status post SBRT August 2020 she was treated in [place]. Patient had CT scan 03/28/2021 which showed stable 1 cm spiculated nodule left lower lobe and a new spiculated 1.2 x 0.9 cm opacities in the left upper lobe but suggested these could be inflammatory and reports 3- month follow-up CT but appears Dr. Stephen attempted to get a hold the patient but was unable to get through to them. Planning for repeat chest CT in 3 months for follow-up. Daughter reports oncologist in [place] recommended palliative care due to significant end-stage COPD and patient wanting to continue to smoke. 5. Dementia -Continue home medications including Namenda and Seroquel VTE prophylaxis: Xarelto CODE STATUS: DNR/DNI Dispo: 2 to 3 days pending improvement
[2021-04-03] MEDS ORDERED: Sodium Chloride 0.9% 50 ML ONE (13:11)
[2021-04-03] MEDS: QUEtiapine 25 MG Tab PO SCH (17:06)
[2021-04-03] MEDS: methylPREDNISolone Sodium Succinate 40 MG/1 ML SDV IVPUSH SCH (17:06)
[2021-04-03] MEDS: Rivaroxaban 10 MG Tab PO SCH (17:07)
[2021-04-03] MEDS: Mirtazapine 15 MG Tab PO SCH (17:07)
[2021-04-04] MEDS: methylPREDNISolone Sodium Succinate 40 MG/1 ML SDV IVPUSH SCH ×2 (01:39→08:42)
[2021-04-04] MEDS: Piperacillin/Tazobactam 3.375 GM in Sodium Chloride 0.9% 50 ML IV SCH ×4 (01:42→20:30)
[2021-04-04] MEDS: Albuterol/Ipratropium 3.0-0.5 MG/3 ML Neb Soln NEB SCH ×6 (01:44→23:31)
[2021-04-04] MEDS: Albuterol/Ipratropium 3.0-0.5 MG/3 ML Neb Soln NEB PRN ×3 (05:00→15:23)
[2021-04-04 06:56] LABS: BLOOD UREA NITROGEN,BUN 20 mg/dL (7.0-18.0); CARBON DIOXIDE,CO2 37.9 mmol/L (21.0-32.0); CHLORIDE,CL 106 mmol/L (98-107); GLUCOSE RANDOM 178 mg/dL (74-106); POTASSIUM,K 3.6 mmol/L (3.5-5.1); SODIUM,NA 146 mmol/L (136-145)
--- NOTE | 2021-04-04 08:05 | PCM.PN ---
- General Info Date of Service: 04/04/21 Admission Dx/Problem (Free Text): Admission Diagnosis/Problem Admission Diagnosis/Problem Pneumonia Subjective Update: Continues to have shortness of breath. Reports she is about the same as yesterday. Coughing with some productive sputum. Denies any chest pain. Reports wanting to go home. Daughter at bedside for second rounds. She agrees with patient needing to stay in for the next couple days to improve breathing. Patient understanding and excepting of this. Encouraged to get up and move as much as her shortness of breath allows. Functional Status: Reports: Pain Controlled, Tolerating Diet, Ambulating (Up to commode) - Review of Systems General: Reports: Weakness HEENT: Reports: No Symptoms. Denies: Headaches, Sore Throat Pulmonary: Reports: Shortness of Breath, Cough, Sputum Cardiovascular: Reports: No Symptoms. Denies: Chest Pain Gastrointestinal: Reports: No Symptoms. Denies: Abdominal Pain, Nausea, Vomiting Genitourinary: Reports: No Symptoms Musculoskeletal: Reports: No Symptoms Skin: Reports: No Symptoms Neurological: Reports: No Symptoms Psychiatric: Reports: No Symptoms - Patient Data Vitals - Most Recent: Last Vital Signs Temp 97.0 F 04/04/21 07:21 Pulse 103 H 04/04/21 07:21 Resp 28 H 04/04/21 07:21 BP 145/85 H 04/04/21 07:21 Pulse Ox 95 04/04/21 07:21 Weight - Most Recent: 37.467 kg I&O - Last 24 Hours: Intake & Output 04/03/21 04/04/21 04/04/21 22:59 06:59 14:59 Intake Total 650 Output Total 0 Balance 650 Lab Results Last 24 Hours: Laboratory Results - last 24 hr 04/03/21 04/04/21 04/04/21 Range/Units 10:54 06:07 06:07 WBC 11.10 H (4.0-11.0) K/uL RBC 3.97 L (4.30-5.90) M/uL Hgb 11.5 L (12.0-16.0) g/dL Hct 37.9 (36.0-46.0) % MCV 95.5 (80.0-98.0) fL MCH 29.0 (27.0-32.0) pg MCHC 30.3 L (31.0-37.0) g/dL RDW Std Deviation 51.3 (28.0-62.0) fl RDW Coeff of Omar 15 (11.0-15.0) % Plt Count 254 (150-400) K/uL MPV 9.50 (7.40-12.00) fL Neut % (Auto) 89.8 H (48.0-80.0) % Lymph % (Auto) 6.8 L (16.0-40.0) % Ellis % (Auto) 3.3 (0.0-15.0) % Eos % (Auto) 0.0 (0.0-7.0) % Baso % (Auto) 0.1 (0.0-1.5) % Neut # (Auto) 10.0 H (1.4-5.7) K/uL Lymph # (Auto) 0.8 (0.6-2.4) K/uL Ellis # (Auto) 0.4 (0.0-0.8) K/uL Eos # (Auto) 0.0 (0.0-0.7) K/uL Baso # (Auto) 0.0 (0.0-0.1) K/uL Nucleated RBC % 0.0 /100WBC Nucleated RBCs # 0 K/uL Sodium (136-145) mmol/L Potassium (3.5-5.1) mmol/L Chloride (98-107) mmol/L Carbon Dioxide (21.0-32.0) mmol/L BUN (7.0-18.0) mg/dL Creatinine (0.6-1.0) mg/dL Est Cr Clr Drug Dosing mL/min Estimated GFR (MDRD) ml/min Glucose (74-106) mg/dL Calcium (8.5-10.1) mg/dL Phosphorus (2.6-4.7) mg/dL Magnesium (1.8-2.4) mg/dL Vancomycin Trough 4.2 L (5.0-10.0) ug/mL SARS-CoV-2 RNA (ABHI) NEGATIVE (NEGATIVE) 04/04/21 Range/Units 06:07 WBC (4.0-11.0) K/uL RBC (4.30-5.90) M/uL Hgb (12.0-16.0) g/dL Hct (36.0-46.0) % MCV (80.0-98.0) fL MCH (27.0-32.0) pg MCHC (31.0-37.0) g/dL RDW Std Deviation (28.0-62.0) fl RDW Coeff of Omar (11.0-15.0) % Plt Count (150-400) K/uL MPV (7.40-12.00) fL Neut % (Auto) (48.0-80.0) % Lymph % (Auto) (16.0-40.0) % Ellis % (Auto) (0.0-15.0) % Eos % (Auto) (0.0-7.0) % Baso % (Auto) (0.0-1.5) % Neut # (Auto) (1.4-5.7) K/uL Lymph # (Auto) (0.6-2.4) K/uL Ellis # (Auto) (0.0-0.8) K/uL Eos # (Auto) (0.0-0.7) K/uL Baso # (Auto) (0.0-0.1) K/uL Nucleated RBC % /100WBC Nucleated RBCs # K/uL Sodium 146 H (136-145) mmol/L Potassium 3.6 (3.5-5.1) mmol/L Chloride 106 (98-107) mmol/L Carbon Dioxide 37.9 H (21.0-32.0) mmol/L BUN 20 H (7.0-18.0) mg/dL Creatinine 0.6 (0.6-1.0) mg/dL Est Cr Clr Drug Dosing 47.18 mL/min Estimated GFR (MDRD) > 60.0 ml/min Glucose 178 H (74-106) mg/dL Calcium 8.5 (8.5-10.1) mg/dL Phosphorus 2.9 (2.6-4.7) mg/dL Magnesium 2.2 (1.8-2.4) mg/dL Vancomycin Trough (5.0-10.0) ug/mL SARS-CoV-2 RNA (ABHI) (NEGATIVE) Reji Results Last 24 Hours: Microbiology 04/02/21 06:45 Aerobic Blood Culture - Preliminary Blood - Venous - Lab Draw NO GROWTH AFTER 2 DAYS Anaerobic Blood Culture - Final 04/02/21 06:35 Aerobic Blood Culture - Preliminary Blood - Venous NO GROWTH AFTER 2 DAYS Anaerobic Blood Culture - Preliminary NO GROWTH AFTER 2 DAYS Med Orders - Current: Current Medications Acetaminophen (Acetaminophen 325 Mg Tab) 650 mg PO Q4H PRN PRN Reason: Pain (Mild 1-3)/fever Albuterol/Ipratropium (Albuterol/Ipratropium 3.0-0.5 Mg/3 Ml Neb Soln) 3 ml NEB Q4HRRT [facility] Last Admin: 04/04/21 05:58 Dose: 3 ml Documented by: Albuterol/Ipratropium (Albuterol/Ipratropium 3.0-0.5 Mg/3 Ml Neb Soln) 3 ml NEB Q4HRRT PRN PRN Reason: Shortness of Breath Last Admin: 04/04/21 05:00 Dose: 3 ml Documented by: Diltiazem HCl (Diltiazem 180 Mg Cap.Cd) 360 mg PO DAILY [facility] Last Admin: 04/03/21 08:32 Dose: 360 mg Documented by: Docusate Sodium (Docusate Sodium 100 Mg Cap) 100 mg PO BID PRN PRN Reason: Constipation Piperacillin Sod/Tazobactam (Sod 3.375 gm/ Sodium Chloride) 50 mls @ 100 mls/hr IV Q6H [facility] Last Admin: 04/04/21 01:42 Dose: 100 mls/hr Documented by: Azithromycin 500 mg/ Sodium (Chloride) 250 mls @ 250 mls/hr IV DAILY [facility] Last Admin: 04/03/21 09:03 Dose: 250 mls/hr Documented by: Vancomycin HCl 500 mg/ Sodium (Chloride) 100 mls @ 100 mls/hr IV Q8H [facility] Memantine (Memantine 10 Mg Tab) 5 mg PO BID [facility] Last Admin: 04/03/21 21:22 Dose: 5 mg Documented by: Methylprednisolone Sodium Succinate (Methylprednisolone Sodium Succinate 40 Mg/1 Ml Sdv) 40 mg IVPUSH Q8H [facility] Last Admin: 04/04/21 01:39 Dose: 40 mg Documented by: Mirtazapine (Mirtazapine 15 Mg Tab) 7.5 mg PO QPM [facility] Last Admin: 04/03/21 17:07 Dose: 7.5 mg Documented by: Mirtazapine (Mirtazapine 15 Mg Tab) 7.5 mg PO QPM PRN PRN Reason: INSOMNIA Ondansetron HCl (Ondansetron 4 Mg/2 Ml Sdv) 4 mg IVPUSH Q4H PRN PRN Reason: Nausea Quetiapine Fumarate (Quetiapine 25 Mg Tab) 12.5 mg PO QPM [facility] Last Admin: 04/03/21 17:06 Dose: 12.5 mg Documented by: Rivaroxaban (Rivaroxaban 10 Mg Tab) 20 mg PO WITHDINNER [facility] Last Admin: 04/03/21 17:07 Dose: 20 mg Documented by: Sodium Chloride (Sodium Chloride 0.9% 2.5 Ml Syringe) 2.5 ml FLUSH ASDIRECTED PRN PRN Reason: Keep Vein Open Tramadol HCl (Tramadol 50 Mg Tab) 100 - 200 mg PO BID PRN PRN Reason: Pain Vancomycin HCl (Pharmacy To Dose - Vancomycin) 1 dose .XX ASDIRECTED [facility] Discontinued Medications Albuterol (Albuterol 0.5% 5 Mg/Ml Neb Soln 20 Ml Bottle) 10 mg NEB ONETIME ONE Stop: 04/02/21 05:31 Last Admin: 04/02/21 05:35 Dose: 10 mg Documented by: Albuterol/Ipratropium (Albuterol/Ipratropium 3.0-0.5 Mg/3 Ml Neb Soln) 3 ml NEB ONETIME ONE Stop: 04/02/21 07:58 Last Admin: 04/02/21 08:02 Dose: 3 ml Documented by: Albuterol/Ipratropium (Albuterol/Ipratropium 3.0-0.5 Mg/3 Ml Neb Soln) Confirm Administered Dose 3 ml .ROUTE .STK-MED ONE Stop: 04/02/21 07:58 Last Admin: 04/02/21 09:17 Dose: Not Given Documented by: Ceftriaxone Sodium/Dextrose 1 (gm/ Premix) 50 mls @ 100 mls/hr IV ONETIME ONE Stop: 04/02/21 06:41 Last Admin: 04/02/21 06:28 Dose: 100 mls/hr Documented by: Sodium Chloride (Normal Saline) 1,000 mls @ 1,000 mls/hr IV .Bolus ONE Stop: 04/02/21 07:44 Last Admin: 04/02/21 07:04 Dose: 1,000 mls/hr Documented by: Levofloxacin/Dextrose 750 mg/ (Premix) 150 mls @ 100 mls/hr IV Q48H [facility] Last Admin: 04/02/21 10:22 Dose: 100 mls/hr Documented by: Lactated Ringer's (Ringers, Lactated) 1,000 mls @ 125 mls/hr IV Q8H [facility] Last Infusion: 04/03/21 08:07 Dose: 0 mls/hr Documented by: Lactated Ringer's (Ringers, Lactated) 1,000 mls @ 999 mls/hr IV .BOLUS ONE Stop: 04/02/21 09:40 Last Admin: 04/02/21 09:16 Dose: 999 mls/hr Documented by: Lactated Ringer's (Ringers, Lactated) 1,000 mls @ 999 mls/hr IV .BOLUS ONE Stop: 04/02/21 14:46 Last Admin: 04/02/21 14:18 Dose: 999 mls/hr Documented by: Vancomycin HCl 500 mg/ Sodium (Chloride) 100 mls @ 100 mls/hr IV Q12H [facility] Last Admin: 04/03/21 18:06 Dose: 100 mls/hr Documented by: Sodium Chloride (Normal Saline) Confirm Administered Dose 50 mls @ as directed .ROUTE .STK-MED ONE Stop: 04/03/21 13:12 Last Admin: 04/03/21 13:16 Dose: Not Given Documented by: Methylprednisolone Sodium Succinate (Methylprednisolone Sodium Succinate 125 Mg/2 Ml Sdv) 125 mg IVPUSH ONETIME ONE Stop: 04/02/21 05:30 Last Admin: 04/02/21 05:59 Dose: 125 mg Documented by: Methylprednisolone Sodium Succinate (Methylprednisolone Sodium Succinate 40 Mg/1 Ml Sdv) 40 mg IVPUSH ONETIME ONE Stop: 04/03/21 09:01 Last Admin: 04/03/21 09:13 Dose: 40 mg Documented by: Sodium Chloride (Sodium Chloride 0.9% 10 Ml Syringe) 10 ml FLUSH ASDIRECTED PRN PRN Reason: Keep Vein Open Last Admin: 04/02/21 07:05 Dose: 10 ml Documented by: Sodium Chloride (Sodium Chloride 0.9% 2.5 Ml Syringe) 2.5 ml FLUSH ASDIRECTED PRN PRN Reason: Keep Vein Open Last Admin: 04/02/21 07:05 Dose: 2.5 ml Documented by: - Exam Quality Assessment: Supplemental Oxygen (5 L nasal cannula), DVT Prophylaxis General: Alert, Oriented (Slightly confused and forgets recent events), Cooperative, No Acute Distress Lungs: Decreased Breath Sounds, Rhonchi, Wheezing. No: Normal Respiratory Effort Cardiovascular: Regular Rate, Regular Rhythm Back Exam: Normal Inspection, Full Range of Motion Extremities: Normal Inspection, Normal Range of Motion, Non-Tender, No Pedal Edema Neurological: No New Focal Deficit Psy/Mental Status: Alert, Normal Affect, Normal Mood - Patient Data Lab Results Last 24 hrs: Laboratory Results - last 24 hr 04/03/21 04/04/21 04/04/21 Range/Units 10:54 06:07 06:07 WBC 11.10 H (4.0-11.0) K/uL RBC 3.97 L (4.30-5.90) M/uL Hgb 11.5 L (12.0-16.0) g/dL Hct 37.9 (36.0-46.0) % MCV 95.5 (80.0-98.0) fL MCH 29.0 (27.0-32.0) pg MCHC 30.3 L (31.0-37.0) g/dL RDW Std Deviation 51.3 (28.0-62.0) fl RDW Coeff of Omar 15 (11.0-15.0) % Plt Count 254 (150-400) K/uL MPV 9.50 (7.40-12.00) fL Neut % (Auto) 89.8 H (48.0-80.0) % Lymph % (Auto) 6.8 L (16.0-40.0) % Ellis % (Auto) 3.3 (0.0-15.0) % Eos % (Auto) 0.0 (0.0-7.0) % Baso % (Auto) 0.1 (0.0-1.5) % Neut # (Auto) 10.0 H (1.4-5.7) K/uL Lymph # (Auto) 0.8 (0.6-2.4) K/uL Ellis # (Auto) 0.4 (0.0-0.8) K/uL Eos # (Auto) 0.0 (0.0-0.7) K/uL Baso # (Auto) 0.0 (0.0-0.1) K/uL Nucleated RBC % 0.0 /100WBC Nucleated RBCs # 0 K/uL Sodium (136-145) mmol/L Potassium (3.5-5.1) mmol/L Chloride (98-107) mmol/L Carbon Dioxide (21.0-32.0) mmol/L BUN (7.0-18.0) mg/dL Creatinine (0.6-1.0) mg/dL Est Cr Clr Drug Dosing mL/min Estimated GFR (MDRD) ml/min Glucose (74-106) mg/dL Calcium (8.5-10.1) mg/dL Phosphorus (2.6-4.7) mg/dL Magnesium (1.8-2.4) mg/dL Vancomycin Trough 4.2 L (5.0-10.0) ug/mL SARS-CoV-2 RNA (ABHI) NEGATIVE (NEGATIVE) 04/04/21 Range/Units 06:07 WBC (4.0-11.0) K/uL RBC (4.30-5.90) M/uL Hgb (12.0-16.0) g/dL Hct (36.0-46.0) % MCV (80.0-98.0) fL MCH (27.0-32.0) pg MCHC (31.0-37.0) g/dL RDW Std Deviation (28.0-62.0) fl RDW Coeff of Omar (11.0-15.0) % Plt Count (150-400) K/uL MPV (7.40-12.00) fL Neut % (Auto) (48.0-80.0) % Lymph % (Auto) (16.0-40.0) % Ellis % (Auto) (0.0-15.0) % Eos % (Auto) (0.0-7.0) % Baso % (Auto) (0.0-1.5) % Neut # (Auto) (1.4-5.7) K/uL Lymph # (Auto) (0.6-2.4) K/uL Ellis # (Auto) (0.0-0.8) K/uL Eos # (Auto) (0.0-0.7) K/uL Baso # (Auto) (0.0-0.1) K/uL Nucleated RBC % /100WBC Nucleated RBCs # K/uL Sodium 146 H (136-145) mmol/L Potassium 3.6 (3.5-5.1) mmol/L Chloride 106 (98-107) mmol/L Carbon Dioxide 37.9 H (21.0-32.0) mmol/L BUN 20 H (7.0-18.0) mg/dL Creatinine 0.6 (0.6-1.0) mg/dL Est Cr Clr Drug Dosing 47.18 mL/min Estimated GFR (MDRD) > 60.0 ml/min Glucose 178 H (74-106) mg/dL Calcium 8.5 (8.5-10.1) mg/dL Phosphorus 2.9 (2.6-4.7) mg/dL Magnesium 2.2 (1.8-2.4) mg/dL Vancomycin Trough (5.0-10.0) ug/mL SARS-CoV-2 RNA (ABHI) (NEGATIVE) Result Diagrams: 04/04/21 06:07 04/04/21 06:07 Reji Results Last 24 hrs: Microbiology 04/02/21 06:45 Aerobic Blood Culture - Preliminary Blood - Venous - Lab Draw NO GROWTH AFTER 2 DAYS Anaerobic Blood Culture - Final 04/02/21 06:35 Aerobic Blood Culture - Preliminary Blood - Venous NO GROWTH AFTER 2 DAYS Anaerobic Blood Culture - Preliminary NO GROWTH AFTER 2 DAYS Sepsis Event Note - Evaluation Sepsis Screening Result: No Definite Risk - Focused Exam Vital Signs: Vital Signs Temp Pulse Resp BP Pulse Ox 04/04/21 07:21 97.0 F 103 H 28 H 145/85 H 95 04/04/21 04:25 97.4 F 93 26 H 155/84 H 80 L 04/04/21 00:00 97.1 F 86 22 H 132/61 92 L - Problem List & Annotations (1) Acute on chronic respiratory failure with hypoxia SNOMED Code(s): 41832159, 845376484 Code(s): J96.21 - ACUTE AND CHRONIC RESPIRATORY FAILURE WITH HYPOXIA Status: Acute Current Visit: Yes (2) Community acquired pneumonia SNOMED Code(s): 241512384 Code(s): J18.9 - PNEUMONIA, UNSPECIFIED ORGANISM Status: Acute Current Visit: Yes Qualifiers: Laterality: unspecified laterality Qualified Code(s): J18.9 - Pneumonia, unspecified organism (3) COPD exacerbation SNOMED Code(s): 585798831 Code(s): J44.1 - CHRONIC OBSTRUCTIVE PULMONARY DISEASE W (ACUTE) EXACERBATION Status: Acute Current Visit: Yes (4) Lung cancer SNOMED Code(s): 984865281 Code(s): C34.90 - MALIGNANT NEOPLASM OF UNSP PART OF UNSP BRONCHUS OR LUNG Status: Chronic Current Visit: Yes (5) End stage COPD SNOMED Code(s): 462677660 Code(s): J44.9 - CHRONIC OBSTRUCTIVE PULMONARY DISEASE, UNSPECIFIED Status: Chronic Current Visit: Yes (6) Bilateral pneumonia SNOMED Code(s): 787140994 Code(s): J18.9 - PNEUMONIA, UNSPECIFIED ORGANISM Status: Acute Current Visit: Yes (7) Dementia SNOMED Code(s): 22299209 Code(s): F03.90 - UNSPECIFIED DEMENTIA WITHOUT BEHAVIORAL DISTURBANCE Status: Chronic Current Visit: No Qualifiers: Dementia type: unspecified type Dementia behavioral disturbance: with behavioral disturbance Qualified Code(s): F03.91 - Unspecified dementia with behavioral disturbance (8) Atrial fibrillation SNOMED Code(s): 46715768 Code(s): I48.91 - UNSPECIFIED ATRIAL FIBRILLATION Status: Chronic Current Visit: Yes - Problem List Review Problem List Initiated/Reviewed/Updated: Yes - My Orders Last 24 Hours: My Active Orders 04/03/21 09:00 Azithromycin [Zithromax] 500 mg Sodium Chloride 0.9% [Normal Saline (AdvBag)] 250 ml IV DAILY 04/03/21 13:01 Consult to Home Health [CONS] Routine 04/03/21 17:00 methylPREDNISolone Sod Succ [Solu-MEDROL] 40 mg IVPUSH Q8H 04/05/21 05:11 BASIC METABOLIC PANEL,BMP [CHEM] AM CBC WITH AUTO DIFF [HEME] AM MAGNESIUM [CHEM] AM PHOSPHORUS [CHEM] AM 04/06/21 05:11 BASIC METABOLIC PANEL,BMP [CHEM] AM CBC WITH AUTO DIFF [HEME] AM MAGNESIUM [CHEM] AM PHOSPHORUS [CHEM] AM - Plan Plan:: 75-year-old female admitted for sepsis secondary to community-acquired pneumonia 1. Acute on chronic hypoxic respiratory failure, community-acquired pneumonia -Continue broad-spectrum antibiotics vancomycin and Zosyn and azithromycin -Patient is on home O2 at 2 L -O2 to keep sats greater than 88%, wean as possible -Blood cultures negative x2 day 2. 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 Atrial fibrillation -Patient stable and converted to sinus rhythm -Continue home medications 4. Lung cancer -Records obtained from [facility], [place]. Patient was seen by Dr. Stephen she was transitioning care here from [place]. History of stage I non-small cell lung cancer not a surgical admit status post SBRT August 2020 she was treated in [place]. Patient had CT scan 03/28/2021 which showed stable 1 cm spiculated nodule left lower lobe and a new spiculated 1.2 x 0.9 cm opacities in the left upper lobe but suggested these could be inflammatory and reports 3-month follow-up CT but appears Dr. Stephen attempted to get a hold the patient but was unable to get through to them. Planning for repeat chest CT in 3 months for follow-up. Daughter reports oncologist in [place] recommended palliative care due to significant end-stage COPD and patient wanting to continue to smoke. 5. Dementia -Continue home medications including Namenda and Seroquel VTE prophylaxis: Xarelto CODE STATUS: DNR/DNI Dispo: 2 to 3 days pending improvement, daughter updated at bedside
[2021-04-04] MEDS: Diltiazem 180 MG Cap.CD PO SCH (08:42)
[2021-04-04] MEDS: Memantine 10 MG Tab PO SCH ×2 (08:42→20:30)
[2021-04-04] MEDS ORDERED: methylPREDNISolone Sodium Succinate 40 MG/1 ML SDV IVPUSH ONE (09:00)
[2021-04-04] MEDS: Azithromycin 500 MG in Sodium Chloride 0.9% 250 ML IV SCH (09:42)
[2021-04-04] MEDS: methylPREDNISolone Sodium Succinate 125 MG/2 ML SDV IVPUSH SCH ×2 (14:54→20:30)
[2021-04-04] MEDS ORDERED: Iopamidol 755 MG/ML 500 ML Multipack Bottle IVPUSH STA (17:11)
[2021-04-04] MEDS: QUEtiapine 25 MG Tab PO SCH (17:13)
[2021-04-04] MEDS: Mirtazapine 15 MG Tab PO SCH (17:14)
[2021-04-04] MEDS: Rivaroxaban 10 MG Tab PO SCH (17:15)
--- NOTE | 2021-04-04 17:59 | CT ---
Indication: Dyspnea Technique: Volumetric multidetector CT images of the chest were obtained after the administration of IV contrast. 50 cc Isovue 370 low osmolar intravenous contrast Comparison: None available. Findings: The thoracic inlet and thyroid gland are unremarkable. The thoracic aorta is non aneurysmal with scattered atherosclerotic calcifications. There is no central filling defect to suggest pulmonary embolism. There are reactive mediastinal and hilar lymph nodes. There is no axillary adenopathy. There is moderate central bronchial thickening with mucoid impaction of the predominantly lower lobe bronchi. There is moderate to severe emphysematous changes of the bilateral hemithoraces with minimal basilar pleural effusions with adjacent compressive atelectasis versus infiltrates. There is nodular opacity within the peripheral left upper lobe which may represent inflammatory change versus developing pulmonary mass measuring 1.5 centimeters. There is moderate biapical pleural thickening. The partially visualized upper abdomen demonstrates likely calculi within the collecting systems. The thoracic vertebral body heights are grossly maintained with minimal endplate Schmorl`s defects. There is no significant spondylolisthesis or displaced fracture. Impression: Moderate to severe emphysematous changes with marked central bronchial thickening, mucoid impaction as well as bibasilar pleural effusions with adjacent compressive atelectasis and/or infiltrates. Otherwise, no evidence of pulmonary embolus. Demonstration of a spiculated appearing pulmonary mass lesion in the peripheral inferior left upper lobe measuring 1.5 centimeters on series 501, image 71 for which continued follow-up with repeat exam in 3-6 months is recommended for improved characterization. Please note that all CT scans at this facility use dose modulation, iterative reconstruction, and/or weight-based dosing when appropriate to reduce radiation dose to as low as reasonably achievable. Dictated by Red Diaz MD @ 04/04/2021 5:59:02 PM (Electronically Signed)
[2021-04-04] MEDS ORDERED: Furosemide 20 MG/2 ML VIAL IVPUSH ONE (18:53)
[2021-04-04] MEDS ORDERED: Potassium Chloride 20 MEQ Tab.ER PO ONE (18:58)
[2021-04-05] MEDS: Piperacillin/Tazobactam 3.375 GM in Sodium Chloride 0.9% 50 ML IV SCH ×4 (02:25→22:03)
[2021-04-05] MEDS: Albuterol/Ipratropium 3.0-0.5 MG/3 ML Neb Soln NEB SCH ×6 (02:25→22:10)
[2021-04-05] MEDS: methylPREDNISolone Sodium Succinate 125 MG/2 ML SDV IVPUSH SCH ×4 (02:26→22:12)
[2021-04-05 08:27] LABS: BLOOD UREA NITROGEN,BUN 26 mg/dL (7.0-18.0); CARBON DIOXIDE,CO2 42.8 mmol/L (21.0-32.0); CHLORIDE,CL 107 mmol/L (98-107); GLUCOSE RANDOM 176 mg/dL (74-106); POTASSIUM,K 4.1 mmol/L (3.5-5.1); SODIUM,NA 149 mmol/L (136-145)
[2021-04-05] MEDS: Diltiazem 180 MG Cap.CD PO SCH (08:48)
[2021-04-05] MEDS: Memantine 10 MG Tab PO SCH ×2 (08:49→22:26)
[2021-04-05] MEDS: Azithromycin 500 MG in Sodium Chloride 0.9% 250 ML IV SCH (09:47)
--- NOTE | 2021-04-05 10:19 | PCM.PN ---
- General Info Date of Service: 04/05/21 Admission Dx/Problem (Free Text): Admission Diagnosis/Problem Admission Diagnosis/Problem Pneumonia Subjective Update: Patient just got back to bed from a commode. Patient in significant amount of shortness of breath with activity. Denies any chest pain. Continues to have rhonchorous and wheezing breath sounds. Patient on 4 L of oxygen satting 88%. Reports she is feeling tired especially with getting back to bed from commode. Patient counseled regarding CT findings continue with chest physiotherapy along with Acapella. Patient reports he is unable to cough up mucus at this time. No family at bedside currently. Functional Status: Reports: Pain Controlled, Tolerating Diet, Urinating, In centive Spirometry. Denies: Ambulating - Review of Systems General: Reports: Weakness, Fatigue, Malaise HEENT: Reports: No Symptoms. Denies: Headaches, Sore Throat, Visual Changes Pulmonary: Reports: Shortness of Breath, Cough, Wheezing. Denies: Sputum Cardiovascular: Reports: Dyspnea on Exertion Gastrointestinal: Denies: Abdominal Pain, Nausea, Vomiting Genitourinary: Reports: No Symptoms. Denies: Dysuria, Frequency Musculoskeletal: Reports: No Symptoms Skin: Reports: No Symptoms Neurological: Reports: No Symptoms Psychiatric: Reports: No Symptoms - Patient Data Vitals - Most Recent: Last Vital Signs Temp 98.7 F 04/05/21 07:45 Pulse 79 04/05/21 07:45 Resp 22 H 04/05/21 07:45 BP 112/64 04/05/21 07:45 Pulse Ox 90 L 04/05/21 07:45 Weight - Most Recent: 37.467 kg I&O - Last 24 Hours: Intake & Output 04/04/21 04/05/21 04/05/21 22:59 06:59 14:59 Intake Total 1150 450 Output Total 800 200 Balance 350 250 Lab Results Last 24 Hours: Laboratory Results - last 24 hr 04/04/21 04/05/21 04/05/21 Range/Units 15:45 07:50 07:50 WBC 9.76 (4.0-11.0) K/uL RBC 3.93 L (4.30-5.90) M/uL Hgb 11.6 L (12.0-16.0) g/dL Hct 38.3 (36.0-46.0) % MCV 97.5 (80.0-98.0) fL MCH 29.5 (27.0-32.0) pg MCHC 30.3 L (31.0-37.0) g/dL RDW Std Deviation 52.7 (28.0-62.0) fl RDW Coeff of Omar 15 (11.0-15.0) % Plt Count 277 (150-400) K/uL MPV 9.40 (7.40-12.00) fL Neut % (Auto) 87.1 H (48.0-80.0) % Lymph % (Auto) 7.7 L (16.0-40.0) % Owsley % (Auto) 5.1 (0.0-15.0) % Eos % (Auto) 0.0 (0.0-7.0) % Baso % (Auto) 0.1 (0.0-1.5) % Neut # (Auto) 8.5 H (1.4-5.7) K/uL Lymph # (Auto) 0.8 (0.6-2.4) K/uL Owsley # (Auto) 0.5 (0.0-0.8) K/uL Eos # (Auto) 0.0 (0.0-0.7) K/uL Baso # (Auto) 0.0 (0.0-0.1) K/uL Nucleated RBC % 0.0 /100WBC Nucleated RBCs # 0 K/uL ABG pH 7.39 (7.35-7.45) ABG pCO2 65 H (35-45) mmHG ABG pO2 65 L (80-105) mmHG ABG HCO3 39 H (22-26) mEq/L ABG Total CO2 35.8 H (23-27) mmol/L ABG Base Excess 11.6 H (-2.0-3.0) Sodium 149 H (136-145) mmol/L Potassium 4.1 (3.5-5.1) mmol/L Chloride 107 (98-107) mmol/L Carbon Dioxide 42.8 H (21.0-32.0) mmol/L BUN 26 H (7.0-18.0) mg/dL Creatinine 0.6 (0.6-1.0) mg/dL Est Cr Clr Drug Dosing 47.18 mL/min Estimated GFR (MDRD) > 60.0 ml/min Glucose 176 H (74-106) mg/dL Calcium 7.8 L (8.5-10.1) mg/dL Phosphorus 2.2 L (2.6-4.7) mg/dL Magnesium 2.3 (1.8-2.4) mg/dL Vancomycin Trough (5.0-10.0) ug/mL 04/05/21 Range/Units 07:50 WBC (4.0-11.0) K/uL RBC (4.30-5.90) M/uL Hgb (12.0-16.0) g/dL Hct (36.0-46.0) % MCV (80.0-98.0) fL MCH (27.0-32.0) pg MCHC (31.0-37.0) g/dL RDW Std Deviation (28.0-62.0) fl RDW Coeff of Omar (11.0-15.0) % Plt Count (150-400) K/uL MPV (7.40-12.00) fL Neut % (Auto) (48.0-80.0) % Lymph % (Auto) (16.0-40.0) % Owsley % (Auto) (0.0-15.0) % Eos % (Auto) (0.0-7.0) % Baso % (Auto) (0.0-1.5) % Neut # (Auto) (1.4-5.7) K/uL Lymph # (Auto) (0.6-2.4) K/uL Owsley # (Auto) (0.0-0.8) K/uL Eos # (Auto) (0.0-0.7) K/uL Baso # (Auto) (0.0-0.1) K/uL Nucleated RBC % /100WBC Nucleated RBCs # K/uL ABG pH (7.35-7.45) ABG pCO2 (35-45) mmHG ABG pO2 (80-105) mmHG ABG HCO3 (22-26) mEq/L ABG Total CO2 (23-27) mmol/L ABG Base Excess (-2.0-3.0) Sodium (136-145) mmol/L Potassium (3.5-5.1) mmol/L Chloride (98-107) mmol/L Carbon Dioxide (21.0-32.0) mmol/L BUN (7.0-18.0) mg/dL Creatinine (0.6-1.0) mg/dL Est Cr Clr Drug Dosing mL/min Estimated GFR (MDRD) ml/min Glucose (74-106) mg/dL Calcium (8.5-10.1) mg/dL Phosphorus (2.6-4.7) mg/dL Magnesium (1.8-2.4) mg/dL Vancomycin Trough 10.7 H (5.0-10.0) ug/mL Reji Results Last 24 Hours: Microbiology 04/02/21 06:45 Aerobic Blood Culture - Preliminary Blood - Venous - Lab Draw NO GROWTH AFTER 3 DAYS Anaerobic Blood Culture - Final 04/02/21 06:35 Aerobic Blood Culture - Preliminary Blood - Venous NO GROWTH AFTER 3 DAYS Anaerobic Blood Culture - Preliminary NO GROWTH AFTER 3 DAYS Med Orders - Current: Current Medications Acetaminophen (Acetaminophen 325 Mg Tab) 650 mg PO Q4H PRN PRN Reason: Pain (Mild 1-3)/fever Albuterol/Ipratropium (Albuterol/Ipratropium 3.0-0.5 Mg/3 Ml Neb Soln) 3 ml NEB Q4HRRT [facility] Last Admin: 04/05/21 09:36 Dose: 3 ml Documented by: Albuterol/Ipratropium (Albuterol/Ipratropium 3.0-0.5 Mg/3 Ml Neb Soln) 3 ml NEB Q4HRRT PRN PRN Reason: Shortness of Breath Last Admin: 04/04/21 15:23 Dose: 3 ml Documented by: Diltiazem HCl (Diltiazem 180 Mg Cap.Cd) 360 mg PO DAILY [facility] Last Admin: 04/05/21 08:48 Dose: 360 mg Documented by: Docusate Sodium (Docusate Sodium 100 Mg Cap) 100 mg PO BID PRN PRN Reason: Constipation Piperacillin Sod/Tazobactam (Sod 3.375 gm/ Sodium Chloride) 50 mls @ 100 mls/hr IV Q6H [facility] Last Admin: 04/05/21 08:07 Dose: 100 mls/hr Documented by: Azithromycin 500 mg/ Sodium (Chloride) 250 mls @ 250 mls/hr IV DAILY [facility] Last Admin: 04/05/21 09:47 Dose: 250 mls/hr Documented by: Vancomycin HCl 500 mg/ Sodium (Chloride) 100 mls @ 100 mls/hr IV Q8H [facility] Memantine (Memantine 10 Mg Tab) 5 mg PO BID [facility] Last Admin: 04/05/21 08:49 Dose: 5 mg Documented by: Methylprednisolone Sodium Succinate (Methylprednisolone Sodium Succinate 125 Mg /2 Ml Sdv) 80 mg IVPUSH Q6H [facility] Last Admin: 04/05/21 08:08 Dose: 80 mg Documented by: Mirtazapine (Mirtazapine 15 Mg Tab) 7.5 mg PO QPM [facility] Last Admin: 04/04/21 17:14 Dose: 7.5 mg Documented by: Mirtazapine (Mirtazapine 15 Mg Tab) 7.5 mg PO QPM PRN PRN Reason: INSOMNIA Ondansetron HCl (Ondansetron 4 Mg/2 Ml Sdv) 4 mg IVPUSH Q4H PRN PRN Reason: Nausea Quetiapine Fumarate (Quetiapine 25 Mg Tab) 12.5 mg PO QPM [facility] Last Admin: 04/04/21 17:13 Dose: 12.5 mg Documented by: Rivaroxaban (Rivaroxaban 10 Mg Tab) 20 mg PO WITHDINNER [facility] Last Admin: 04/04/21 17:15 Dose: 20 mg Documented by: Sodium Chloride (Sodium Chloride 0.9% 2.5 Ml Syringe) 2.5 ml FLUSH ASDIRECTED PRN PRN Reason: Keep Vein Open Tramadol HCl (Tramadol 50 Mg Tab) 100 - 200 mg PO BID PRN PRN Reason: Pain Vancomycin HCl (Pharmacy To Dose - Vancomycin) 1 dose .XX ASDIRECTED [facility] Discontinued Medications Albuterol (Albuterol 0.5% 5 Mg/Ml Neb Soln 20 Ml Bottle) 10 mg NEB ONETIME ONE Stop: 04/02/21 05:31 Last Admin: 04/02/21 05:35 Dose: 10 mg Documented by: Albuterol/Ipratropium (Albuterol/Ipratropium 3.0-0.5 Mg/3 Ml Neb Soln) 3 ml NEB ONETIME ONE Stop: 04/02/21 07:58 Last Admin: 04/02/21 08:02 Dose: 3 ml Documented by: Albuterol/Ipratropium (Albuterol/Ipratropium 3.0-0.5 Mg/3 Ml Neb Soln) Confirm Administered Dose 3 ml .ROUTE .STK-MED ONE Stop: 04/02/21 07:58 Last Admin: 04/02/21 09:17 Dose: Not Given Documented by: Furosemide (Furosemide 20 Mg/2 Ml Vial) 20 mg IVPUSH ONETIME ONE Stop: 04/04/21 18:54 Last Admin: 04/04/21 19:00 Dose: 20 mg Documented by: Ceftriaxone Sodium/Dextrose 1 (gm/ Premix) 50 mls @ 100 mls/hr IV ONETIME ONE Stop: 04/02/21 06:41 Last Admin: 04/02/21 06:28 Dose: 100 mls/hr Documented by: Sodium Chloride (Normal Saline) 1,000 mls @ 1,000 mls/hr IV .Bolus ONE Stop: 04/02/21 07:44 Last Admin: 04/02/21 07:04 Dose: 1,000 mls/hr Documented by: Levofloxacin/Dextrose 750 mg/ (Premix) 150 mls @ 100 mls/hr IV Q48H [facility] Last Admin: 04/02/21 10:22 Dose: 100 mls/hr Documented by: Lactated Ringer's (Ringers, Lactated) 1,000 mls @ 125 mls/hr IV Q8H [facility] Last Infusion: 04/03/21 08:07 Dose: 0 mls/hr Documented by: Lactated Ringer's (Ringers, Lactated) 1,000 mls @ 999 mls/hr IV .BOLUS ONE Stop: 04/02/21 09:40 Last Admin: 04/02/21 09:16 Dose: 999 mls/hr Documented by: Lactated Ringer's (Ringers, Lactated) 1,000 mls @ 999 mls/hr IV .BOLUS ONE Stop: 04/02/21 14:46 Last Admin: 04/02/21 14:18 Dose: 999 mls/hr Documented by: Vancomycin HCl 500 mg/ Sodium (Chloride) 100 mls @ 100 mls/hr IV Q12H [facility] Last Admin: 04/04/21 08:46 Dose: Not Given Documented by: Sodium Chloride (Normal Saline) Confirm Administered Dose 50 mls @ as directed .ROUTE .STK-MED ONE Stop: 04/03/21 13:12 Last Admin: 04/03/21 13:16 Dose: Not Given Documented by: Vancomycin HCl 500 mg/ Sodium (Chloride) 100 mls @ 100 mls/hr IV Q8H [facility] Last Admin: 04/05/21 10:06 Dose: Not Given Documented by: Iopamidol (Iopamidol 755 Mg/Ml 500 Ml Multipack Bottle) 50 ml IVPUSH ONETIME STA Stop: 04/04/21 17:12 Last Admin: 04/04/21 17:11 Dose: 50 ml Documented by: Methylprednisolone Sodium Succinate (Methylprednisolone Sodium Succinate 125 Mg/2 Ml Sdv) 125 mg IVPUSH ONETIME ONE Stop: 04/02/21 05:30 Last Admin: 04/02/21 05:59 Dose: 125 mg Documented by: Methylprednisolone Sodium Succinate (Methylprednisolone Sodium Succinate 40 Mg/1 Ml Sdv) 40 mg IVPUSH ONETIME ONE Stop: 04/03/21 09:01 Last Admin: 04/03/21 09:13 Dose: 40 mg Documented by: Methylprednisolone Sodium Succinate (Methylprednisolone Sodium Succinate 40 Mg/1 Ml Sdv) 40 mg IVPUSH Q8H [facility] Last Admin: 04/04/21 08:42 Dose: 40 mg Documented by: Methylprednisolone Sodium Succinate (Methylprednisolone Sodium Succinate 40 Mg/1 Ml Sdv) 40 mg IVPUSH ONETIME ONE Stop: 04/04/21 09:01 Last Admin: 04/04/21 09:41 Dose: 40 mg Documented by: Potassium Chloride (Potassium Chloride 20 Meq Tab.Er) 40 meq PO ONETIME ONE Stop: 04/04/21 18:59 Last Admin: 04/04/21 19:08 Dose: 40 meq Documented by: Sodium Chloride (Sodium Chloride 0.9% 10 Ml Syringe) 10 ml FLUSH ASDIRECTED PRN PRN Reason: Keep Vein Open Last Admin: 04/02/21 07:05 Dose: 10 ml Documented by: Sodium Chloride (Sodium Chloride 0.9% 2.5 Ml Syringe) 2.5 ml FLUSH ASDIRECTED PRN PRN Reason: Keep Vein Open Last Admin: 04/02/21 07:05 Dose: 2.5 ml Documented by: - Exam Quality Assessment: Supplemental Oxygen (4 to 5 L), DVT Prophylaxis General: Alert, Oriented, Cooperative, Mild Distress (Dyspnea after getting back to bed from commode) Lungs: Decreased Breath Sounds, Crackles, Rhonchi, Wheezing. No: Normal Respiratory Effort (Dyspnea especially with exertion) Cardiovascular: Regular Rate, Regular Rhythm GI/Abdominal Exam: Normal Bowel Sounds, Soft, Non-Tender Back Exam: Normal Inspection, Full Range of Motion Extremities: Normal Inspection, Normal Range of Motion, Non-Tender, No Pedal Edema Neurological: No New Focal Deficit Psy/Mental Status: Alert, Normal Affect, Normal Mood - Patient Data Lab Results Last 24 hrs: Laboratory Results - last 24 hr 04/04/21 04/05/21 04/05/21 Range/Units 15:45 07:50 07:50 WBC 9.76 (4.0-11.0) K/uL RBC 3.93 L (4.30-5.90) M/uL Hgb 11.6 L (12.0-16.0) g/dL Hct 38.3 (36.0-46.0) % MCV 97.5 (80.0-98.0) fL MCH 29.5 (27.0-32.0) pg MCHC 30.3 L (31.0-37.0) g/dL RDW Std Deviation 52.7 (28.0-62.0) fl RDW Coeff of Omar 15 (11.0-15.0) % Plt Count 277 (150-400) K/uL MPV 9.40 (7.40-12.00) fL Neut % (Auto) 87.1 H (48.0-80.0) % Lymph % (Auto) 7.7 L (16.0-40.0) % Owsley % (Auto) 5.1 (0.0-15.0) % Eos % (Auto) 0.0 (0.0-7.0) % Baso % (Auto) 0.1 (0.0-1.5) % Neut # (Auto) 8.5 H (1.4-5.7) K/uL Lymph # (Auto) 0.8 (0.6-2.4) K/uL Owsley # (Auto) 0.5 (0.0-0.8) K/uL Eos # (Auto) 0.0 (0.0-0.7) K/uL Baso # (Auto) 0.0 (0.0-0.1) K/uL Nucleated RBC % 0.0 /100WBC Nucleated RBCs # 0 K/uL ABG pH 7.39 (7.35-7.45) ABG pCO2 65 H (35-45) mmHG ABG pO2 65 L (80-105) mmHG ABG HCO3 39 H (22-26) mEq/L ABG Total CO2 35.8 H (23-27) mmol/L ABG Base Excess 11.6 H (-2.0-3.0) Sodium 149 H (136-145) mmol/L Potassium 4.1 (3.5-5.1) mmol/L Chloride 107 (98-107) mmol/L Carbon Dioxide 42.8 H (21.0-32.0) mmol/L BUN 26 H (7.0-18.0) mg/dL Creatinine 0.6 (0.6-1.0) mg/dL Est Cr Clr Drug Dosing 47.18 mL/min Estimated GFR (MDRD) > 60.0 ml/min Glucose 176 H (74-106) mg/dL Calcium 7.8 L (8.5-10.1) mg/dL Phosphorus 2.2 L (2.6-4.7) mg/dL Magnesium 2.3 (1.8-2.4) mg/dL Vancomycin Trough (5.0-10.0) ug/mL 04/05/21 Range/Units 07:50 WBC (4.0-11.0) K/uL RBC (4.30-5.90) M/uL Hgb (12.0-16.0) g/dL Hct (36.0-46.0) % MCV (80.0-98.0) fL MCH (27.0-32.0) pg MCHC (31.0-37.0) g/dL RDW Std Deviation (28.0-62.0) fl RDW Coeff of Omar (11.0-15.0) % Plt Count (150-400) K/uL MPV (7.40-12.00) fL Neut % (Auto) (48.0-80.0) % Lymph % (Auto) (16.0-40.0) % Owsley % (Auto) (0.0-15.0) % Eos % (Auto) (0.0-7.0) % Baso % (Auto) (0.0-1.5) % Neut # (Auto) (1.4-5.7) K/uL Lymph # (Auto) (0.6-2.4) K/uL Owsley # (Auto) (0.0-0.8) K/uL Eos # (Auto) (0.0-0.7) K/uL Baso # (Auto) (0.0-0.1) K/uL Nucleated RBC % /100WBC Nucleated RBCs # K/uL ABG pH (7.35-7.45) ABG pCO2 (35-45) mmHG ABG pO2 (80-105) mmHG ABG HCO3 (22-26) mEq/L ABG Total CO2 (23-27) mmol/L ABG Base Excess (-2.0-3.0) Sodium (136-145) mmol/L Potassium (3.5-5.1) mmol/L Chloride (98-107) mmol/L Carbon Dioxide (21.0-32.0) mmol/L BUN (7.0-18.0) mg/dL Creatinine (0.6-1.0) mg/dL Est Cr Clr Drug Dosing mL/min Estimated GFR (MDRD) ml/min Glucose (74-106) mg/dL Calcium (8.5-10.1) mg/dL Phosphorus (2.6-4.7) mg/dL Magnesium (1.8-2.4) mg/dL Vancomycin Trough 10.7 H (5.0-10.0) ug/mL Result Diagrams: 04/05/21 07:50 04/05/21 07:50 Reji Results Last 24 hrs: Microbiology 04/02/21 06:45 Aerobic Blood Culture - Preliminary Blood - Venous - Lab Draw NO GROWTH AFTER 3 DAYS Anaerobic Blood Culture - Final 04/02/21 06:35 Aerobic Blood Culture - Preliminary Blood - Venous NO GROWTH AFTER 3 DAYS Anaerobic Blood Culture - Preliminary NO GROWTH AFTER 3 DAYS Sepsis Event Note - Evaluation Sepsis Screening Result: No Definite Risk - Focused Exam Vital Signs: Vital Signs Temp Temp Pulse Resp BP Pulse Ox 04/05/21 07:45 98.7 F 98.7 F 79 22 H 112/64 90 L 04/05/21 06:06 97.9 F 04/05/21 04:00 96.2 F L 68 22 H 133/49 L 92 L 04/05/21 00:00 96.1 F L 80 22 H 127/52 L 92 L - Problem List & Annotations (1) Acute on chronic respiratory failure with hypoxia SNOMED Code(s): 76519758, 458981145 Code(s): J96.21 - ACUTE AND CHRONIC RESPIRATORY FAILURE WITH HYPOXIA Status: Acute Current Visit: Yes (2) Community acquired pneumonia SNOMED Code(s): 716168659 Code(s): J18.9 - PNEUMONIA, UNSPECIFIED ORGANISM Status: Acute Current Visit: Yes Qualifiers: Laterality: unspecified laterality Qualified Code(s): J18.9 - Pneumonia, unspecified organism (3) COPD exacerbation SNOMED Code(s): 565518206 Code(s): J44.1 - CHRONIC OBSTRUCTIVE PULMONARY DISEASE W (ACUTE) EXACERBATION Status: Acute Current Visit: Yes (4) Lung cancer SNOMED Code(s): 562896998 Code(s): C34.90 - MALIGNANT NEOPLASM OF UNSP PART OF UNSP BRONCHUS OR LUNG Status: Chronic Current Visit: Yes (5) End stage COPD SNOMED Code(s): 323463696 Code(s): J44.9 - CHRONIC OBSTRUCTIVE PULMONARY DISEASE, UNSPECIFIED Status: Chronic Current Visit: Yes (6) Bilateral pneumonia SNOMED Code(s): 486001276 Code(s): J18.9 - PNEUMONIA, UNSPECIFIED ORGANISM Status: Acute Current Visit: Yes (7) Dementia SNOMED Code(s): 96066282 Code(s): F03.90 - UNSPECIFIED DEMENTIA WITHOUT BEHAVIORAL DISTURBANCE Status: Chronic Current Visit: No Qualifiers: Dementia type: unspecified type Dementia behavioral disturbance: with behavioral disturbance Qualified Code(s): F03.91 - Unspecified dementia with behavioral disturbance (8) Atrial fibrillation SNOMED Code(s): 82841169 Code(s): I48.91 - UNSPECIFIED ATRIAL FIBRILLATION Status: Chronic Current Visit: Yes - Problem List Review Problem List Initiated/Reviewed/Updated: Yes - My Orders Last 24 Hours: My Active Orders 04/04/21 15:00 methylPREDNISolone Sod Succ [Solu-MEDROL] 80 mg IVPUSH Q6H 04/05/21 08:20 RT Acapella [RESPCARE] Routine 04/06/21 05:11 BASIC METABOLIC PANEL,BMP [CHEM] AM CBC WITH AUTO DIFF [HEME] AM MAGNESIUM [CHEM] AM PHOSPHORUS [CHEM] AM - Plan Plan:: 75-year-old female admitted for sepsis secondary to community-acquired pneumonia 1. Acute on chronic hypoxic respiratory failure, community-acquired pneumonia -Continue broad-spectrum antibiotics vancomycin and Zosyn and azithromycin -Patient is on home O2 at 2 L -O2 to keep sats greater than 88%, wean as possible -Blood cultures negative x2 day -Patient had worsening work of breathing last evening CT angio obtained which shows no pulmonary embolism. It does show moderate to severe emphysematous changes with marked central bronchial thickening mucoid impaction as well as bibasilar pleural effusions with adjacent compressive atelectasis and/or infiltrates. Continues to demonstrate spiculated pulmonary mass in the peripheral inferior left upper lobe. -Continue aggressive chest physiotherapy along with Acapella to help with mucoid impaction. -Lasix was given last night with mild improvement in oxygenation. -Palliative care consult placed. 2. 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 Atrial fibrillation -Patient stable and converted to sinus rhythm -Continue home medications 4. Lung cancer -Records obtained from [facility]. Patient was seen by Dr. Stephen she was transitioning care here from [place]. History of stage I non- small cell lung cancer not a surgical admit status post SBRT August 2020 she was treated in [place]. Patient had CT scan 03/28/2021 which showed stable 1 cm spiculated nodule left lower lobe and a new spiculated 1.2 x 0.9 cm opacities in the left upper lobe but suggested these could be inflammatory and reports 3- month follow-up CT but appears Dr. Stephen attempted to get a hold the patient but was unable to get through to them. Planning for repeat chest CT in 3 months for follow-up. Daughter reports oncologist in [place] recommended palliative care due to significant end-stage COPD and patient wanting to continue to smoke. 5. Dementia -Continue home medications including Namenda and Seroquel VTE prophylaxis: Xarelto CODE STATUS: DNR/DNI Dispo: 2 to 3 days pending improvement,
[2021-04-05] MEDS ORDERED: LORazepam 2 MG/ML SDV IVPUSH PRN (11:00)
[2021-04-05] MEDS: Morphine 2 MG/ML SYRINGE IVPUSH PRN ×5 (11:45→18:21)
[2021-04-05] MEDS: QUEtiapine 25 MG Tab PO SCH (17:51)
[2021-04-05] MEDS: Rivaroxaban 10 MG Tab PO SCH (17:51)
[2021-04-05] MEDS: Mirtazapine 15 MG Tab PO SCH (17:51)
[2021-04-05] MEDS ORDERED: Scopolamine 1.5 MG Transdermal Patch TRDERM PRN (21:28)
[2021-04-06] MEDS: Albuterol/Ipratropium 3.0-0.5 MG/3 ML Neb Soln NEB SCH ×6 (01:08→21:20)
[2021-04-06] MEDS: Morphine 2 MG/ML SYRINGE IVPUSH PRN ×4 (01:08→08:45)
[2021-04-06] MEDS: Piperacillin/Tazobactam 3.375 GM in Sodium Chloride 0.9% 50 ML IV SCH ×2 (01:36→08:44)
[2021-04-06] MEDS: methylPREDNISolone Sodium Succinate 125 MG/2 ML SDV IVPUSH SCH ×2 (02:12→08:45)
[2021-04-06] MEDS: Albuterol/Ipratropium 3.0-0.5 MG/3 ML Neb Soln NEB PRN ×2 (03:18→04:22)
[2021-04-06] MEDS ORDERED: Albuterol/Ipratropium 3.0-0.5 MG/3 ML Neb Soln ONE ×4 (06:00→18:00)
[2021-04-06 06:58] LABS: BLOOD UREA NITROGEN,BUN 34 mg/dL (7.0-18.0); CARBON DIOXIDE,CO2 42.6 mmol/L (21.0-32.0); CHLORIDE,CL 106 mmol/L (98-107); GLUCOSE RANDOM 212 mg/dL (74-106); SODIUM,NA 149 mmol/L (136-145)
[2021-04-06] MEDS: Azithromycin 500 MG in Sodium Chloride 0.9% 250 ML IV SCH (09:50)
[2021-04-06] MEDS: LORazepam Conc Solution 2 MG/ML 30 ML Bottle SL PRN ×4 (09:50→23:49)
[2021-04-06] MEDS: Diltiazem 180 MG Cap.CD PO SCH (10:01)
[2021-04-06] MEDS: Memantine 10 MG Tab PO SCH ×2 (10:01→21:23)
[2021-04-06] MEDS ORDERED: Morphine 2 MG/ML SYRINGE ONE (10:12)
--- NOTE | 2021-04-06 10:57 | PCM.PN ---
- General Info Date of Service: 04/06/21 Admission Dx/Problem (Free Text): Admission Diagnosis/Problem Admission Diagnosis/Problem Pneumonia Subjective Update: Patient more sedated this morning breathing easier. Daughter and granddaughter at bedside. They are happy with results of morphine and Ativan. They are looking at getting patient home soon as possible to continue hospice treatment and care. I spoke with Liz news director. She felt at discharge and admission to hospice today would be difficult due to staffing. They would be able to admit patient on Friday. They will come speak with family regarding this arrangement. - Patient Data Vitals - Most Recent: Last Vital Signs Temp 97.2 F 04/06/21 07:42 Pulse 79 04/06/21 07:42 Resp 18 04/06/21 07:42 BP 90/70 04/06/21 07:42 Pulse Ox 86 L 04/06/21 07:42 Weight - Most Recent: 37.195 kg I&O - Last 24 Hours: Intake & Output 04/05/21 04/06/21 04/06/21 22:59 06:59 14:59 Intake Total 50 150 Output Total 0 Balance 50 150 Lab Results Last 24 Hours: Laboratory Results - last 24 hr 04/06/21 04/06/21 Range/Units 06:00 06:00 WBC 6.75 (4.0-11.0) K/uL RBC 3.93 L (4.30-5.90) M/uL Hgb 11.5 L (12.0-16.0) g/dL Hct 38.6 (36.0-46.0) % MCV 98.2 H (80.0-98.0) fL MCH 29.3 (27.0-32.0) pg MCHC 29.8 L (31.0-37.0) g/dL RDW Std Deviation 52.2 (28.0-62.0) fl RDW Coeff of Omar 15 (11.0-15.0) % Plt Count 303 (150-400) K/uL MPV 9.60 (7.40-12.00) fL Neut % (Auto) 86.2 H (48.0-80.0) % Lymph % (Auto) 7.6 L (16.0-40.0) % [place] % (Auto) 6.2 (0.0-15.0) % Eos % (Auto) 0.0 (0.0-7.0) % Baso % (Auto) 0.0 (0.0-1.5) % Neut # (Auto) 5.8 H (1.4-5.7) K/uL Lymph # (Auto) 0.5 L (0.6-2.4) K/uL [place] # (Auto) 0.4 (0.0-0.8) K/uL Eos # (Auto) 0.0 (0.0-0.7) K/uL Baso # (Auto) 0.0 (0.0-0.1) K/uL Nucleated RBC % 0.0 /100WBC Nucleated RBCs # 0 K/uL Sodium 149 H (136-145) mmol/L Potassium 4.0 (3.5-5.1) mmol/L Chloride 106 (98-107) mmol/L Carbon Dioxide 42.6 H (21.0-32.0) mmol/L BUN 34 H (7.0-18.0) mg/dL Creatinine 0.6 (0.6-1.0) mg/dL Est Cr Clr Drug Dosing 47.18 mL/min Estimated GFR (MDRD) > 60.0 ml/min Glucose 212 H (74-106) mg/dL Calcium 8.3 L (8.5-10.1) mg/dL Phosphorus 2.4 L (2.6-4.7) mg/dL Magnesium 2.4 (1.8-2.4) mg/dL Reji Results Last 24 Hours: Microbiology 04/02/21 06:45 Aerobic Blood Culture - Preliminary Blood - Venous - Lab Draw NO GROWTH AFTER 4 DAYS Anaerobic Blood Culture - Final 04/02/21 06:35 Aerobic Blood Culture - Preliminary Blood - Venous NO GROWTH AFTER 4 DAYS Anaerobic Blood Culture - Preliminary NO GROWTH AFTER 4 DAYS Med Orders - Current: Current Medications Acetaminophen (Acetaminophen 325 Mg Tab) 650 mg PO Q4H PRN PRN Reason: Pain (Mild 1-3)/fever Albuterol/Ipratropium (Albuterol/Ipratropium 3.0-0.5 Mg/3 Ml Neb Soln) 3 ml NEB Q4HRRT UTE Last Admin: 04/06/21 09:45 Dose: 3 ml Documented by: Albuterol/Ipratropium (Albuterol/Ipratropium 3.0-0.5 Mg/3 Ml Neb Soln) 3 ml NEB Q4HRRT PRN PRN Reason: Shortness of Breath Last Admin: 04/06/21 04:22 Dose: 3 ml Documented by: Diltiazem HCl (Diltiazem 180 Mg Cap.Cd) 360 mg PO DAILY [facility] Last Admin: 04/06/21 10:01 Dose: Not Given Documented by: Docusate Sodium (Docusate Sodium 100 Mg Cap) 100 mg PO BID PRN PRN Reason: Constipation Last Admin: 04/05/21 11:40 Dose: 100 mg Documented by: Piperacillin Sod/Tazobactam (Sod 3.375 gm/ Sodium Chloride) 50 mls @ 100 mls/hr IV Q6H [facility] Last Admin: 04/06/21 08:44 Dose: 100 mls/hr Documented by: Azithromycin 500 mg/ Sodium (Chloride) 250 mls @ 250 mls/hr IV DAILY [facility] Last Admin: 04/06/21 09:50 Dose: 250 mls/hr Documented by: Vancomycin HCl 500 mg/ Sodium (Chloride) 100 mls @ 100 mls/hr IV Q8H [facility] Last Admin: 04/06/21 02:29 Dose: 100 mls/hr Documented by: Lorazepam (Lorazepam Conc Solution 2 Mg/Ml 30 Ml Bottle) 0.5 mg SL Q4H PRN PRN Reason: anxiety/agitation Last Admin: 04/06/21 09:50 Dose: 0.5 mg Documented by: Memantine (Memantine 10 Mg Tab) 5 mg PO BID [facility] Last Admin: 04/06/21 10:01 Dose: Not Given Documented by: Methylprednisolone Sodium Succinate (Methylprednisolone Sodium Succinate 125 Mg/2 Ml Sdv) 80 mg IVPUSH Q6H [facility] Last Admin: 04/06/21 08:45 Dose: 80 mg Documented by: Mirtazapine (Mirtazapine 15 Mg Tab) 7.5 mg PO QPM [facility] Last Admin: 04/05/21 17:51 Dose: Not Given Documented by: Morphine Sulfate (Morphine 100 Mg/5 Ml (15 Ml) Oral Solution) 5 mg PO Q1H PRN PRN Reason: airhunger/dyspnea/pain/anxiety Ondansetron HCl (Ondansetron 4 Mg/2 Ml Sdv) 4 mg IVPUSH Q4H PRN PRN Reason: Nausea Quetiapine Fumarate (Quetiapine 25 Mg Tab) 12.5 mg PO QPM [facility] Last Admin: 04/05/21 17:51 Dose: Not Given Documented by: Rivaroxaban (Rivaroxaban 10 Mg Tab) 20 mg PO WITHDINNER [facility] Last Admin: 04/05/21 17:51 Dose: Not Given Documented by: Scopolamine (Scopolamine 1.5 Mg Transdermal Patch) 1.5 mg TRDERM Q72H PRN PRN Reason: secreations Last Admin: 04/05/21 22:08 Dose: 1.5 mg Documented by: Sodium Chloride (Sodium Chloride 0.9% 2.5 Ml Syringe) 2.5 ml FLUSH ASDIRECTED PRN PRN Reason: Keep Vein Open Tramadol HCl (Tramadol 50 Mg Tab) 100 - 200 mg PO BID PRN PRN Reason: Pain Vancomycin HCl (Pharmacy To Dose - Vancomycin) 1 dose .XX ASDIRECTED UTE Discontinued Medications Albuterol (Albuterol 0.5% 5 Mg/Ml Neb Soln 20 Ml Bottle) 10 mg NEB ONETIME ONE Stop: 04/02/21 05:31 Last Admin: 04/02/21 05:35 Dose: 10 mg Documented by: Albuterol/Ipratropium (Albuterol/Ipratropium 3.0-0.5 Mg/3 Ml Neb Soln) 3 ml NEB ONETIME ONE Stop: 04/02/21 07:58 Last Admin: 04/02/21 08:02 Dose: 3 ml Documented by: Albuterol/Ipratropium (Albuterol/Ipratropium 3.0-0.5 Mg/3 Ml Neb Soln) Confirm Administered Dose 3 ml .ROUTE .STK-MED ONE Stop: 04/02/21 07:58 Last Admin: 04/02/21 09:17 Dose: Not Given Documented by: Furosemide (Furosemide 20 Mg/2 Ml Vial) 20 mg IVPUSH ONETIME ONE Stop: 04/04/21 18:54 Last Admin: 04/04/21 19:00 Dose: 20 mg Documented by: Ceftriaxone Sodium/Dextrose 1 (gm/ Premix) 50 mls @ 100 mls/hr IV ONETIME ONE Stop: 04/02/21 06:41 Last Admin: 04/02/21 06:28 Dose: 100 mls/hr Documented by: Sodium Chloride (Normal Saline) 1,000 mls @ 1,000 mls/hr IV .Bolus ONE Stop: 04/02/21 07:44 Last Admin: 04/02/21 07:04 Dose: 1,000 mls/hr Documented by: Levofloxacin/Dextrose 750 mg/ (Premix) 150 mls @ 100 mls/hr IV Q48H UTE Last Admin: 04/02/21 10:22 Dose: 100 mls/hr Documented by: Lactated Ringer's (Ringers, Lactated) 1,000 mls @ 125 mls/hr IV Q8H UTE Last Infusion: 04/03/21 08:07 Dose: 0 mls/hr Documented by: Lactated Ringer's (Ringers, Lactated) 1,000 mls @ 999 mls/hr IV .BOLUS ONE Stop: 04/02/21 09:40 Last Admin: 04/02/21 09:16 Dose: 999 mls/hr Documented by: Lactated Ringer's (Ringers, Lactated) 1,000 mls @ 999 mls/hr IV .BOLUS ONE Stop: 04/02/21 14:46 Last Admin: 04/02/21 14:18 Dose: 999 mls/hr Documented by: Vancomycin HCl 500 mg/ Sodium (Chloride) 100 mls @ 100 mls/hr IV Q12H [facility] Last Admin: 04/04/21 08:46 Dose: Not Given Documented by: Sodium Chloride (Normal Saline) Confirm Administered Dose 50 mls @ as directed .ROUTE .STK-MED ONE Stop: 04/03/21 13:12 Last Admin: 04/03/21 13:16 Dose: Not Given Documented by: Vancomycin HCl 500 mg/ Sodium (Chloride) 100 mls @ 100 mls/hr IV Q8H UTE Last Admin: 04/05/21 10:06 Dose: Not Given Documented by: Iopamidol (Iopamidol 755 Mg/Ml 500 Ml Multipack Bottle) 50 ml IVPUSH ONETIME STA Stop: 04/04/21 17:12 Last Admin: 04/04/21 17:11 Dose: 50 ml Documented by: Lorazepam (Lorazepam 2 Mg/Ml Sdv) 0.5 mg IVPUSH Q6H PRN PRN Reason: dyspnea/anxiety/agitation Last Admin: 04/06/21 05:23 Dose: 0.5 mg Documented by: Methylprednisolone Sodium Succinate (Methylprednisolone Sodium Succinate 125 Mg/2 Ml Sdv) 125 mg IVPUSH ONETIME ONE Stop: 04/02/21 05:30 Last Admin: 04/02/21 05:59 Dose: 125 mg Documented by: Methylprednisolone Sodium Succinate (Methylprednisolone Sodium Succinate 40 Mg/1 Ml Sdv) 40 mg IVPUSH ONETIME ONE Stop: 04/03/21 09:01 Last Admin: 04/03/21 09:13 Dose: 40 mg Documented by: Methylprednisolone Sodium Succinate (Methylprednisolone Sodium Succinate 40 Mg/1 Ml Sdv) 40 mg IVPUSH Q8H UTE Last Admin: 04/04/21 08:42 Dose: 40 mg Documented by: Methylprednisolone Sodium Succinate (Methylprednisolone Sodium Succinate 40 Mg/1 Ml Sdv) 40 mg IVPUSH ONETIME ONE Stop: 04/04/21 09:01 Last Admin: 04/04/21 09:41 Dose: 40 mg Documented by: Mirtazapine (Mirtazapine 15 Mg Tab) 7.5 mg PO QPM PRN PRN Reason: INSOMNIA Morphine Sulfate (Morphine 2 Mg/Ml Syringe) 2 mg IVPUSH Q1H PRN PRN Reason: dyspnea/agitation/anxiety Last Admin: 04/06/21 08:45 Dose: 2 mg Documented by: Morphine Sulfate (Morphine 2 Mg/Ml Syringe) Confirm Administered Dose 2 mg .ROUTE .STK-MED ONE Stop: 04/06/21 10:13 Potassium Chloride (Potassium Chloride 20 Meq Tab.Er) 40 meq PO ONETIME ONE Stop: 04/04/21 18:59 Last Admin: 04/04/21 19:08 Dose: 40 meq Documented by: Sodium Chloride (Sodium Chloride 0.9% 10 Ml Syringe) 10 ml FLUSH ASDIRECTED PRN PRN Reason: Keep Vein Open Last Admin: 04/02/21 07:05 Dose: 10 ml Documented by: Sodium Chloride (Sodium Chloride 0.9% 2.5 Ml Syringe) 2.5 ml FLUSH ASDIRECTED PRN PRN Reason: Keep Vein Open Last Admin: 04/02/21 07:05 Dose: 2.5 ml Documented by: - Exam Quality Assessment: Supplemental Oxygen General: Sedated Lungs: Normal Respiratory Effort (Mild dyspnea noted much more relaxed than previous days.) - Patient Data Lab Results Last 24 hrs: Laboratory Results - last 24 hr 04/06/21 04/06/21 Range/Units 06:00 06:00 WBC 6.75 (4.0-11.0) K/uL RBC 3.93 L (4.30-5.90) M/uL Hgb 11.5 L (12.0-16.0) g/dL Hct 38.6 (36.0-46.0) % MCV 98.2 H (80.0-98.0) fL MCH 29.3 (27.0-32.0) pg MCHC 29.8 L (31.0-37.0) g/dL RDW Std Deviation 52.2 (28.0-62.0) fl RDW Coeff of Omar 15 (11.0-15.0) % Plt Count 303 (150-400) K/uL MPV 9.60 (7.40-12.00) fL Neut % (Auto) 86.2 H (48.0-80.0) % Lymph % (Auto) 7.6 L (16.0-40.0) % [place] % (Auto) 6.2 (0.0-15.0) % Eos % (Auto) 0.0 (0.0-7.0) % Baso % (Auto) 0.0 (0.0-1.5) % Neut # (Auto) 5.8 H (1.4-5.7) K/uL Lymph # (Auto) 0.5 L (0.6-2.4) K/uL [place] # (Auto) 0.4 (0.0-0.8) K/uL Eos # (Auto) 0.0 (0.0-0.7) K/uL Baso # (Auto) 0.0 (0.0-0.1) K/uL Nucleated RBC % 0.0 /100WBC Nucleated RBCs # 0 K/uL Sodium 149 H (136-145) mmol/L Potassium 4.0 (3.5-5.1) mmol/L Chloride 106 (98-107) mmol/L Carbon Dioxide 42.6 H (21.0-32.0) mmol/L BUN 34 H (7.0-18.0) mg/dL Creatinine 0.6 (0.6-1.0) mg/dL Est Cr Clr Drug Dosing 47.18 mL/min Estimated GFR (MDRD) > 60.0 ml/min Glucose 212 H (74-106) mg/dL Calcium 8.3 L (8.5-10.1) mg/dL Phosphorus 2.4 L (2.6-4.7) mg/dL Magnesium 2.4 (1.8-2.4) mg/dL Result Diagrams: 04/06/21 06:00 04/06/21 06:00 Reji Results Last 24 hrs: Microbiology 04/02/21 06:45 Aerobic Blood Culture - Preliminary Blood - Venous - Lab Draw NO GROWTH AFTER 4 DAYS Anaerobic Blood Culture - Final 04/02/21 06:35 Aerobic Blood Culture - Preliminary Blood - Venous NO GROWTH AFTER 4 DAYS Anaerobic Blood Culture - Preliminary NO GROWTH AFTER 4 DAYS Sepsis Event Note - Evaluation Sepsis Screening Result: No Definite Risk - Focused Exam Vital Signs: Vital Signs Temp Pulse Resp BP Pulse Ox Pulse Ox 04/06/21 07:42 97.2 F 79 18 90/70 86 L 04/06/21 04:22 89 L 04/06/21 03:21 24 H 91 L 04/06/21 03:00 28 H 85 L - Problem List & Annotations (1) Palliative care status SNOMED Code(s): 383533531 Code(s): Z51.5 - ENCOUNTER FOR PALLIATIVE CARE Status: Acute Current Visit: Yes (2) Acute on chronic respiratory failure with hypoxia SNOMED Code(s): 96348268, 262108294 Code(s): J96.21 - ACUTE AND CHRONIC RESPIRATORY FAILURE WITH HYPOXIA Status: Acute Current Visit: Yes (3) Community acquired pneumonia SNOMED Code(s): 178005234 Code(s): J18.9 - PNEUMONIA, UNSPECIFIED ORGANISM Status: Acute Current Visit: Yes Qualifiers: Laterality: unspecified laterality Qualified Code(s): J18.9 - Pneumonia, unspecified organism (4) COPD exacerbation SNOMED Code(s): 823353085 Code(s): J44.1 - CHRONIC OBSTRUCTIVE PULMONARY DISEASE W (ACUTE) EXACERBATION Status: Acute Current Visit: Yes (5) Lung cancer SNOMED Code(s): 843270684 Code(s): C34.90 - MALIGNANT NEOPLASM OF UNSP PART OF UNSP BRONCHUS OR LUNG Status: Chronic Current Visit: Yes (6) End stage COPD SNOMED Code(s): 463532441 Code(s): J44.9 - CHRONIC OBSTRUCTIVE PULMONARY DISEASE, UNSPECIFIED Status: Chronic Current Visit: Yes (7) Bilateral pneumonia SNOMED Code(s): 441170158 Code(s): J18.9 - PNEUMONIA, UNSPECIFIED ORGANISM Status: Acute Current Visit: Yes (8) Dementia SNOMED Code(s): 25036208 Code(s): F03.90 - UNSPECIFIED DEMENTIA WITHOUT BEHAVIORAL DISTURBANCE Status: Chronic Current Visit: No Qualifiers: Dementia type: unspecified type Dementia behavioral disturbance: with behavioral disturbance Qualified Code(s): F03.91 - Unspecified dementia with behavioral disturbance (9) Atrial fibrillation SNOMED Code(s): 18719656 Code(s): I48.91 - UNSPECIFIED ATRIAL FIBRILLATION Status: Chronic Current Visit: Yes - Problem List Review Problem List Initiated/Reviewed/Updated: Yes - My Orders Last 24 Hours: My Active Orders 04/05/21 10:50 Comfort Measures [OM.PC] Routine 04/05/21 10:51 Consult to Hospice [CONS] Routine 04/05/21 14:25 [employer] Discontinue [Cardiac Monitoring Discontinue] [RC] Click to Edit 04/05/21 14:25 Resuscitation Status Routine 04/06/21 09:19 LORazepam [Ativan] 0.5 mg SL Q4H PRN Morphine [Morphine 100 MG/5 ML Oral Solution] 5 mg PO Q1H PRN - Plan Plan:: 75-year-old female admitted for sepsis secondary to community-acquired pneumonia 1. Acute on chronic hypoxic respiratory failure, community-acquired pneumonia/Palliative care -Patient has continued to decline and was placed on palliative measures yesterday with consult to hospice. Family has decided to take patient home on hospice. Hospice has been in discussion with them regarding plans at home and getting hospital bed. We will continue morphine and Ativan but will transition to sublingual so we can find adequate dosing for her comfort. -Patient more sedated today not taking her medications, will discuss with family regarding discontinuation of antibiotics. -Comfort care measures at this time. -Patient is on home O2 at 2 L -O2 to keep sats greater than 88%, wean as possible 2. 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 Atrial fibrillation -Patient stable and converted to sinus rhythm -Continue home medications 4. Lung cancer -[facility] obtained [facility]. Patient was seen by Dr. Stephen she was transitioning care here from [place]. History of stage I non- small cell lung cancer not a surgical admit status post SBRT August 2020 she was treated in [place]. Patient had CT scan 03/28/2021 which showed stable 1 cm spiculated nodule left lower lobe and a new spiculated 1.2 x 0.9 cm opacities in the left upper lobe but suggested these could be inflammatory and reports 3- month follow-up CT but appears Dr. Stephen attempted to get a hold the patient but was unable to get through to them. Planning for repeat chest CT in 3 months for follow-up. Daughter reports oncologist in [place] recommended palliative care due to significant end-stage COPD and patient wanting to continue to smoke. 5. Dementia -Continue home medications including Namenda and Seroquel VTE prophylaxis: Xarelto CODE STATUS: DNR/DNI Dispo: Plan for home with hospice on Friday when hospice is able to admit. Hospital bed to be arranged through Hospice.
[2021-04-06] MEDS: Morphine 100 MG/5 ML (15 ML) Oral Solution PO PRN ×7 (11:05→19:01)
[2021-04-06] MEDS ORDERED: Acetaminophen 650 MG Supp RECTAL PRN (12:19)
[2021-04-07] MEDS: Morphine 100 MG/5 ML (15 ML) Oral Solution PO PRN ×13 (00:11→20:29)
[2021-04-07] MEDS: Albuterol/Ipratropium 3.0-0.5 MG/3 ML Neb Soln NEB SCH ×5 (02:02→17:44)
[2021-04-07] MEDS: LORazepam Conc Solution 2 MG/ML 30 ML Bottle SL PRN ×4 (04:06→16:50)
[2021-04-07] MEDS: Mirtazapine 15 MG Tab PO SCH (07:26)
[2021-04-07] MEDS: QUEtiapine 25 MG Tab PO SCH (07:26)
[2021-04-07] MEDS: Memantine 10 MG Tab PO SCH ×2 (10:27→20:29)
--- NOTE | 2021-04-07 12:16 | PCM.PN ---
- General Info Date of Service: 04/07/21 - Review of Systems Systems Review Comment:: appears to be in no distress, family reports patient does try to get up out of bed about every hour - Patient Data Vitals - Most Recent: Last Vital Signs Temp 37.2 C 04/07/21 08:33 Pulse 145 H 04/07/21 08:33 Resp 14 04/07/21 08:33 BP 150/86 H 04/06/21 11:36 Pulse Ox 85 L 04/07/21 08:33 Weight - Most Recent: 37.195 kg I&O - Last 24 Hours: Intake & Output 04/06/21 04/07/21 04/07/21 22:59 06:59 14:59 Intake Total 0 Balance 0 Reji Results Last 24 Hours: Microbiology 04/02/21 06:45 Aerobic Blood Culture - Final Blood - Venous - Lab Draw NO GROWTH AFTER 5 DAYS Anaerobic Blood Culture - Final 04/02/21 06:35 Aerobic Blood Culture - Final Blood - Venous NO GROWTH AFTER 5 DAYS Anaerobic Blood Culture - Final NO GROWTH AFTER 5 DAYS Med Orders - Current: Current Medications Acetaminophen (Acetaminophen 650 Mg Supp) 650 mg RECTAL Q6H PRN PRN Reason: Pain/Fever Albuterol/Ipratropium (Albuterol/Ipratropium 3.0-0.5 Mg/3 Ml Neb Soln) 3 ml NEB Q4HRRT [facility] Last Admin: 04/07/21 09:35 Dose: 3 ml Documented by: Albuterol/Ipratropium (Albuterol/Ipratropium 3.0-0.5 Mg/3 Ml Neb Soln) 3 ml NEB Q4HRRT PRN PRN Reason: Shortness of Breath Last Admin: 04/06/21 04:22 Dose: 3 ml Documented by: Docusate Sodium (Docusate Sodium 100 Mg Cap) 100 mg PO BID PRN PRN Reason: Constipation Last Admin: 04/05/21 11:40 Dose: 100 mg Documented by: Lorazepam (Lorazepam Conc Solution 2 Mg/Ml 30 Ml Bottle) 0.5 mg SL Q4H PRN PRN Reason: anxiety/agitation Last Admin: 04/07/21 08:30 Dose: 0.5 mg Documented by: Memantine (Memantine 10 Mg Tab) 5 mg PO BID [facility] Last Admin: 04/07/21 10:27 Dose: Not Given Documented by: Mirtazapine (Mirtazapine 15 Mg Tab) 7.5 mg PO QPM [facility] Last Admin: 04/07/21 07:26 Dose: Not Given Documented by: Morphine Sulfate (Morphine 100 Mg/5 Ml (15 Ml) Oral Solution) 5 mg PO Q1H PRN PRN Reason: airhunger/dyspnea/pain/anxiety Last Admin: 04/07/21 10:34 Dose: 5 mg Documented by: Ondansetron HCl (Ondansetron 4 Mg/2 Ml Sdv) 4 mg IVPUSH Q4H PRN PRN Reason: Nausea Quetiapine Fumarate (Quetiapine 25 Mg Tab) 12.5 mg PO QPM [facility] Last Admin: 04/07/21 07:26 Dose: Not Given Documented by: Scopolamine (Scopolamine 1.5 Mg Transdermal Patch) 1.5 mg TRDERM Q72H PRN PRN Reason: secreations Last Admin: 04/05/21 22:08 Dose: 1.5 mg Documented by: Sodium Chloride (Sodium Chloride 0.9% 2.5 Ml Syringe) 2.5 ml FLUSH ASDIRECTED PRN PRN Reason: Keep Vein Open Discontinued Medications Acetaminophen (Acetaminophen 325 Mg Tab) 650 mg PO Q4H PRN PRN Reason: Pain (Mild 1-3)/fever Albuterol (Albuterol 0.5% 5 Mg/Ml Neb Soln 20 Ml Bottle) 10 mg NEB ONETIME ONE Stop: 04/02/21 05:31 Last Admin: 04/02/21 05:35 Dose: 10 mg Documented by: Albuterol/Ipratropium (Albuterol/Ipratropium 3.0-0.5 Mg/3 Ml Neb Soln) 3 ml NEB ONETIME ONE Stop: 04/02/21 07:58 Last Admin: 04/02/21 08:02 Dose: 3 ml Documented by: Albuterol/Ipratropium (Albuterol/Ipratropium 3.0-0.5 Mg/3 Ml Neb Soln) Confirm Administered Dose 3 ml .ROUTE .STK-MED ONE Stop: 04/02/21 07:58 Last Admin: 04/02/21 09:17 Dose: Not Given Documented by: Diltiazem HCl (Diltiazem 180 Mg Cap.Cd) 360 mg PO DAILY [facility] Last Admin: 04/06/21 10:01 Dose: Not Given Documented by: Furosemide (Furosemide 20 Mg/2 Ml Vial) 20 mg IVPUSH ONETIME ONE Stop: 04/04/21 18:54 Last Admin: 04/04/21 19:00 Dose: 20 mg Documented by: Ceftriaxone Sodium/Dextrose 1 (gm/ Premix) 50 mls @ 100 mls/hr IV ONETIME ONE Stop: 04/02/21 06:41 Last Admin: 04/02/21 06:28 Dose: 100 mls/hr Documented by: Sodium Chloride (Normal Saline) 1,000 mls @ 1,000 mls/hr IV .Bolus ONE Stop: 04/02/21 07:44 Last Admin: 04/02/21 07:04 Dose: 1,000 mls/hr Documented by: Levofloxacin/Dextrose 750 mg/ (Premix) 150 mls @ 100 mls/hr IV Q48H [facility] Last Admin: 04/02/21 10:22 Dose: 100 mls/hr Documented by: Lactated Ringer's (Ringers, Lactated) 1,000 mls @ 125 mls/hr IV Q8H [facility] Last Infusion: 04/03/21 08:07 Dose: 0 mls/hr Documented by: Lactated Ringer's (Ringers, Lactated) 1,000 mls @ 999 mls/hr IV .BOLUS ONE Stop: 04/02/21 09:40 Last Admin: 04/02/21 09:16 Dose: 999 mls/hr Documented by: Piperacillin Sod/Tazobactam (Sod 3.375 gm/ Sodium Chloride) 50 mls @ 100 mls/hr IV Q6H [facility] Last Admin: 04/06/21 08:44 Dose: 100 mls/hr Documented by: Lactated Ringer's (Ringers, Lactated) 1,000 mls @ 999 mls/hr IV .BOLUS ONE Stop: 04/02/21 14:46 Last Admin: 04/02/21 14:18 Dose: 999 mls/hr Documented by: Vancomycin HCl 500 mg/ Sodium (Chloride) 100 mls @ 100 mls/hr IV Q12H [facility] Last Admin: 04/04/21 08:46 Dose: Not Given Documented by: Azithromycin 500 mg/ Sodium (Chloride) 250 mls @ 250 mls/hr IV DAILY [facility] Last Admin: 04/06/21 09:50 Dose: 250 mls/hr Documented by: Sodium Chloride (Normal Saline) Confirm Administered Dose 50 mls @ as directed .ROUTE .STK-MED ONE Stop: 04/03/21 13:12 Last Admin: 04/03/21 13:16 Dose: Not Given Documented by: Vancomycin HCl 500 mg/ Sodium (Chloride) 100 mls @ 100 mls/hr IV Q8H [facility] Last Admin: 04/05/21 10:06 Dose: Not Given Documented by: Vancomycin HCl 500 mg/ Sodium (Chloride) 100 mls @ 100 mls/hr IV Q8H [facility] Last Admin: 04/06/21 17:51 Dose: Not Given Documented by: Iopamidol (Iopamidol 755 Mg/Ml 500 Ml Multipack Bottle) 50 ml IVPUSH ONETIME STA Stop: 04/04/21 17:12 Last Admin: 04/04/21 17:11 Dose: 50 ml Documented by: Lorazepam (Lorazepam 2 Mg/Ml Sdv) 0.5 mg IVPUSH Q6H PRN PRN Reason: dyspnea/anxiety/agitation Last Admin: 04/06/21 05:23 Dose: 0.5 mg Documented by: Methylprednisolone Sodium Succinate (Methylprednisolone Sodium Succinate 125 Mg/2 Ml Sdv) 125 mg IVPUSH ONETIME ONE Stop: 04/02/21 05:30 Last Admin: 04/02/21 05:59 Dose: 125 mg Documented by: Methylprednisolone Sodium Succinate (Methylprednisolone Sodium Succinate 40 Mg/1 Ml Sdv) 40 mg IVPUSH ONETIME ONE Stop: 04/03/21 09:01 Last Admin: 04/03/21 09:13 Dose: 40 mg Documented by: Methylprednisolone Sodium Succinate (Methylprednisolone Sodium Succinate 40 Mg/1 Ml Sdv) 40 mg IVPUSH Q8H [facility] Last Admin: 04/04/21 08:42 Dose: 40 mg Documented by: Methylprednisolone Sodium Succinate (Methylprednisolone Sodium Succinate 40 Mg/1 Ml Sdv) 40 mg IVPUSH ONETIME ONE Stop: 04/04/21 09:01 Last Admin: 04/04/21 09:41 Dose: 40 mg Documented by: Methylprednisolone Sodium Succinate (Methylprednisolone Sodium Succinate 125 Mg/2 Ml Sdv) 80 mg IVPUSH Q6H [facility] Last Admin: 04/06/21 08:45 Dose: 80 mg Documented by: Mirtazapine (Mirtazapine 15 Mg Tab) 7.5 mg PO QPM PRN PRN Reason: INSOMNIA Morphine Sulfate (Morphine 2 Mg/Ml Syringe) 2 mg IVPUSH Q1H PRN PRN Reason: dyspnea/agitation/anxiety Last Admin: 04/06/21 08:45 Dose: 2 mg Documented by: Morphine Sulfate (Morphine 2 Mg/Ml Syringe) Confirm Administered Dose 2 mg .ROUTE .STK-MED ONE Stop: 04/06/21 10:13 Last Admin: 04/06/21 16:28 Dose: Not Given Documented by: Potassium Chloride (Potassium Chloride 20 Meq Tab.Er) 40 meq PO ONETIME ONE Stop: 04/04/21 18:59 Last Admin: 04/04/21 19:08 Dose: 40 meq Documented by: Rivaroxaban (Rivaroxaban 10 Mg Tab) 20 mg PO WITHDINNER [facility] Last Admin: 04/05/21 17:51 Dose: Not Given Documented by: Sodium Chloride (Sodium Chloride 0.9% 10 Ml Syringe) 10 ml FLUSH ASDIRECTED PRN PRN Reason: Keep Vein Open Last Admin: 04/02/21 07:05 Dose: 10 ml Documented by: Sodium Chloride (Sodium Chloride 0.9% 2.5 Ml Syringe) 2.5 ml FLUSH ASDIRECTED PRN PRN Reason: Keep Vein Open Last Admin: 04/02/21 07:05 Dose: 2.5 ml Documented by: Tramadol HCl (Tramadol 50 Mg Tab) 100 - 200 mg PO BID PRN PRN Reason: Pain Vancomycin HCl (Pharmacy To Dose - Vancomycin) 1 dose .XX ASDIRECTED [facility] - Exam General: Alert, Oriented Neck: Supple Lungs: Clear to Auscultation, Normal Respiratory Effort Cardiovascular: Regular Rate, Regular Rhythm GI/Abdominal Exam: Normal Bowel Sounds, Soft, Non-Tender Extremities: Non-Tender, No Pedal Edema Skin: Warm, Dry, Intact Neurological: No New Focal Deficit - Patient Data Result Diagrams: 04/06/21 06:00 04/06/21 06:00 Reji Results Last 24 hrs: Microbiology 04/02/21 06:45 Aerobic Blood Culture - Final Blood - Venous - Lab Draw NO GROWTH AFTER 5 DAYS Anaerobic Blood Culture - Final 04/02/21 06:35 Aerobic Blood Culture - Final Blood - Venous NO GROWTH AFTER 5 DAYS Anaerobic Blood Culture - Final NO GROWTH AFTER 5 DAYS Sepsis Event Note - Evaluation Sepsis Screening Result: No Definite Risk - Focused Exam Vital Signs: Vital Signs Temp Pulse Resp Pulse Ox 04/07/21 08:33 37.2 C 145 H 14 85 L - Problem List Review Problem List Initiated/Reviewed/Updated: Yes - My Orders Last 24 Hours: My Active Orders 04/08/21 08:00 Ready for Discharge [RC] PER UNIT ROUTINE - Plan Plan:: 75-year-old female admitted for sepsis secondary to community-acquired pneumonia, her condition has worsened and patient is now on comfort care only. We will continue palliative care and plan on discharge home tomorrow with hospice.
--- NOTE | 2021-04-07 21:35 | PCM.DCSUM1 ---
Discharge Summary - Discharge Data Discharge Date: 04/07/21 Discharge Disposition: 20 Condition: - Referral to Home Health Primary Care Physician: Carley Monroy NP - Patient Summary/Data Consults: Consultations 04/03/21 13:01 Consult to Home Health [CONS] Routine 04/05/21 10:51 Consult to Hospice [CONS] Routine Hospital Course: Patient is a 75-year-old female with past medical history of COPD chronic respiratory failure and possible lung cancer who presented to ED with shortenss of breath. Patient was found to be hypoxic satting in 70s on room air, she was started on 3 L of oxygen and her oxygen improved to 92 to 92%. Chest x-ray significant for bilateral pneumonia, Covid test was negative, EKG showed atrial fibrillation rate controlled. She was treated with IV antibiotics, solumedrol and duonebs. As patient was not responding to therapy and was becoming increasingly dyspnic family requested hospice care. She with family in room. - Patient Instructions Diet, Other: for comfort only - Discharge Plan Prescriptions/Med Rec: Morphine [Morphine 10 MG/0.5 ML Oral Syringe] 5 mg SL Q1H #1 sdv Scopolamine [Transderm-Scop] 1.5 mg TRDERM Q72H PRN #4 patch PRN Reason: secreations Home Medications: Home Meds Memantine [Namenda] 5 mg PO BID 11/04/20 [History] Mirtazapine 7.5 - 15 mg PO QPM 11/04/20 [History] traMADol [Ultram] 100 - 200 mg PO BID PRN 11/04/20 [History] Tiotropium [Spiriva HandiHaler] 1 puff INH DAILY 11/06/20 [History] Albuterol Sulfate [Albuterol Sulfate HFA] 8.5 gm INH Q6H PRN #1 inhaler 11/07/20 [Rx] QUEtiapine Fumarate [Seroquel] 12.5 mg PO QPM 28 Days #14 tablet 03/28/21 [Rx] LORazepam [Ativan] 0.5 mg SL Q4H PRN ml 04/07/21 [Rx] Morphine [Morphine 10 MG/0.5 ML Oral Syringe] 5 mg SL Q1H #1 sdv 04/07/21 [Rx] Scopolamine [Transderm-Scop] 1.5 mg TRDERM Q72H PRN #4 patch 04/07/21 [Rx] Patient Handouts: Chronic Obstructive Pulmonary Disease Exacerbation, [id number] Referrals: Rhiannon Herrera PA [Physician Screening Representative] - 04/11/21 2:00 pm - Discharge Summary/Plan Comment DC Time >30 min.: No (20) Total # of Minutes for Discharge Time: 20 - Patient Data Vitals - Most Recent: Last Vital Signs Temp 37.2 C 04/07/21 20:37 Pulse 83 04/07/21 20:37 Resp 8 L 04/07/21 20:37 BP 150/86 H 04/06/21 11:36 Pulse Ox 83 L 04/07/21 20:37 Weight - Most Recent: 37.195 kg I&O - Last 24 hours: Intake & Output 04/07/21 04/07/21 04/07/21 06:59 14:59 22:59 Intake Total 0 Balance 0 ANDREW Results - Last 24 hrs: Microbiology 04/02/21 06:45 Aerobic Blood Culture - Final Blood - Venous - Lab Draw NO GROWTH AFTER 5 DAYS Anaerobic Blood Culture - Final 04/02/21 06:35 Aerobic Blood Culture - Final Blood - Venous NO GROWTH AFTER 5 DAYS Anaerobic Blood Culture - Final NO GROWTH AFTER 5 DAYS Med Orders - Current: Current Medications Acetaminophen (Acetaminophen 650 Mg Supp) 650 mg RECTAL Q6H PRN PRN Reason: Pain/Fever Albuterol/Ipratropium (Albuterol/Ipratropium 3.0-0.5 Mg/3 Ml Neb Soln) 3 ml NEB Q4HRRT [facility] Last Admin: 04/07/21 17:44 Dose: 3 ml Documented by: Albuterol/Ipratropium (Albuterol/Ipratropium 3.0-0.5 Mg/3 Ml Neb Soln) 3 ml NEB Q4HRRT PRN PRN Reason: Shortness of Breath Last Admin: 04/06/21 04:22 Dose: 3 ml Documented by: Docusate Sodium (Docusate Sodium 100 Mg Cap) 100 mg PO BID PRN PRN Reason: Constipation Last Admin: 04/05/21 11:40 Dose: 100 mg Documented by: Lorazepam (Lorazepam Conc Solution 2 Mg/Ml 30 Ml Bottle) 0.5 mg SL Q4H PRN PRN Reason: anxiety/agitation Last Admin: 04/07/21 16:50 Dose: 0.5 mg Documented by: Memantine (Memantine 10 Mg Tab) 5 mg PO BID [facility] Last Admin: 04/07/21 20:29 Dose: Not Given Documented by: Mirtazapine (Mirtazapine 15 Mg Tab) 7.5 mg PO QPM [facility] Last Admin: 04/07/21 07:26 Dose: Not Given Documented by: Morphine Sulfate (Morphine 100 Mg/5 Ml (15 Ml) Oral Solution) 5 mg PO Q1H PRN PRN Reason: airhunger/dyspnea/pain/anxiety Last Admin: 04/07/21 20:29 Dose: 5 mg Documented by: Ondansetron HCl (Ondansetron 4 Mg/2 Ml Sdv) 4 mg IVPUSH Q4H PRN PRN Reason: Nausea Quetiapine Fumarate (Quetiapine 25 Mg Tab) 12.5 mg PO QPM [facility] Last Admin: 04/07/21 07:26 Dose: Not Given Documented by: Scopolamine (Scopolamine 1.5 Mg Transdermal Patch) 1.5 mg TRDERM Q72H PRN PRN Reason: secreations Last Admin: 04/05/21 22:08 Dose: 1.5 mg Documented by: Sodium Chloride (Sodium Chloride 0.9% 2.5 Ml Syringe) 2.5 ml FLUSH ASDIRECTED PRN PRN Reason: Keep Vein Open Discontinued Medications Acetaminophen (Acetaminophen 325 Mg Tab) 650 mg PO Q4H PRN PRN Reason: Pain (Mild 1-3)/fever Albuterol (Albuterol 0.5% 5 Mg/Ml Neb Soln 20 Ml Bottle) 10 mg NEB ONETIME ONE Stop: 04/02/21 05:31 Last Admin: 04/02/21 05:35 Dose: 10 mg Documented by: Albuterol/Ipratropium (Albuterol/Ipratropium 3.0-0.5 Mg/3 Ml Neb Soln) 3 ml NEB ONETIME ONE Stop: 04/02/21 07:58 Last Admin: 04/02/21 08:02 Dose: 3 ml Documented by: Albuterol/Ipratropium (Albuterol/Ipratropium 3.0-0.5 Mg/3 Ml Neb Soln) Confirm Administered Dose 3 ml .ROUTE .STK-MED ONE Stop: 04/02/21 07:58 Last Admin: 04/02/21 09:17 Dose: Not Given Documented by: Diltiazem HCl (Diltiazem 180 Mg Cap.Cd) 360 mg PO DAILY [facility] Last Admin: 04/06/21 10:01 Dose: Not Given Documented by: Furosemide (Furosemide 20 Mg/2 Ml Vial) 20 mg IVPUSH ONETIME ONE Stop: 04/04/21 18:54 Last Admin: 04/04/21 19:00 Dose: 20 mg Documented by: Ceftriaxone Sodium/Dextrose 1 (gm/ Premix) 50 mls @ 100 mls/hr IV ONETIME ONE Stop: 04/02/21 06:41 Last Admin: 04/02/21 06:28 Dose: 100 mls/hr Documented by: Sodium Chloride (Normal Saline) 1,000 mls @ 1,000 mls/hr IV .Bolus ONE Stop: 04/02/21 07:44 Last Admin: 04/02/21 07:04 Dose: 1,000 mls/hr Documented by: Levofloxacin/Dextrose 750 mg/ (Premix) 150 mls @ 100 mls/hr IV Q48H [facility] Last Admin: 04/02/21 10:22 Dose: 100 mls/hr Documented by: Lactated Ringer's (Ringers, Lactated) 1,000 mls @ 125 mls/hr IV Q8H [facility] Last Infusion: 04/03/21 08:07 Dose: 0 mls/hr Documented by: Lactated Ringer's (Ringers, Lactated) 1,000 mls @ 999 mls/hr IV .BOLUS ONE Stop: 04/02/21 09:40 Last Admin: 04/02/21 09:16 Dose: 999 mls/hr Documented by: Piperacillin Sod/Tazobactam (Sod 3.375 gm/ Sodium Chloride) 50 mls @ 100 mls/hr IV Q6H [facility] Last Admin: 04/06/21 08:44 Dose: 100 mls/hr Documented by: Lactated Ringer's (Ringers, Lactated) 1,000 mls @ 999 mls/hr IV .BOLUS ONE Stop: 04/02/21 14:46 Last Admin: 04/02/21 14:18 Dose: 999 mls/hr Documented by: Vancomycin HCl 500 mg/ Sodium (Chloride) 100 mls @ 100 mls/hr IV Q12H [facility] Last Admin: 04/04/21 08:46 Dose: Not Given Documented by: Azithromycin 500 mg/ Sodium (Chloride) 250 mls @ 250 mls/hr IV DAILY [facility] Last Admin: 04/06/21 09:50 Dose: 250 mls/hr Documented by: Sodium Chloride (Normal Saline) Confirm Administered Dose 50 mls @ as directed .ROUTE .STK-MED ONE Stop: 04/03/21 13:12 Last Admin: 04/03/21 13:16 Dose: Not Given Documented by: Vancomycin HCl 500 mg/ Sodium (Chloride) 100 mls @ 100 mls/hr IV Q8H [facility] Last Admin: 04/05/21 10:06 Dose: Not Given Documented by: Vancomycin HCl 500 mg/ Sodium (Chloride) 100 mls @ 100 mls/hr IV Q8H [facility] Last Admin: 04/06/21 17:51 Dose: Not Given Documented by: Iopamidol (Iopamidol 755 Mg/Ml 500 Ml Multipack Bottle) 50 ml IVPUSH ONETIME STA Stop: 04/04/21 17:12 Last Admin: 04/04/21 17:11 Dose: 50 ml Documented by: Lorazepam (Lorazepam 2 Mg/Ml Sdv) 0.5 mg IVPUSH Q6H PRN PRN Reason: dyspnea/anxiety/agitation Last Admin: 04/06/21 05:23 Dose: 0.5 mg Documented by: Methylprednisolone Sodium Succinate (Methylprednisolone Sodium Succinate 125 Mg/2 Ml Sdv) 125 mg IVPUSH ONETIME ONE Stop: 04/02/21 05:30 Last Admin: 04/02/21 05:59 Dose: 125 mg Documented by: Methylprednisolone Sodium Succinate (Methylprednisolone Sodium Succinate 40 Mg/1 Ml Sdv) 40 mg IVPUSH ONETIME ONE Stop: 04/03/21 09:01 Last Admin: 04/03/21 09:13 Dose: 40 mg Documented by: Methylprednisolone Sodium Succinate (Methylprednisolone Sodium Succinate 40 Mg/1 Ml Sdv) 40 mg IVPUSH Q8H [facility] Last Admin: 04/04/21 08:42 Dose: 40 mg Documented by: Methylprednisolone Sodium Succinate (Methylprednisolone Sodium Succinate 40 Mg/1 Ml Sdv) 40 mg IVPUSH ONETIME ONE Stop: 04/04/21 09:01 Last Admin: 04/04/21 09:41 Dose: 40 mg Documented by: Methylprednisolone Sodium Succinate (Methylprednisolone Sodium Succinate 125 Mg/2 Ml Sdv) 80 mg IVPUSH Q6H [facility] Last Admin: 04/06/21 08:45 Dose: 80 mg Documented by: Mirtazapine (Mirtazapine 15 Mg Tab) 7.5 mg PO QPM PRN PRN Reason: INSOMNIA Morphine Sulfate (Morphine 2 Mg/Ml Syringe) 2 mg IVPUSH Q1H PRN PRN Reason: dyspnea/agitation/anxiety Last Admin: 04/06/21 08:45 Dose: 2 mg Documented by: Morphine Sulfate (Morphine 2 Mg/Ml Syringe) Confirm Administered Dose 2 mg .ROUTE .STK-MED ONE Stop: 04/06/21 10:13 Last Admin: 04/06/21 16:28 Dose: Not Given Documented by: Potassium Chloride (Potassium Chloride 20 Meq Tab.Er) 40 meq PO ONETIME ONE Stop: 04/04/21 18:59 Last Admin: 04/04/21 19:08 Dose: 40 meq Documented by: Rivaroxaban (Rivaroxaban 10 Mg Tab) 20 mg PO WITHAMANDA [facility] Last Admin: 04/05/21 17:51 Dose: Not Given Documented by: Sodium Chloride (Sodium Chloride 0.9% 10 Ml Syringe) 10 ml FLUSH ASDIRECTED PRN PRN Reason: Keep Vein Open Last Admin: 04/02/21 07:05 Dose: 10 ml Documented by: Sodium Chloride (Sodium Chloride 0.9% 2.5 Ml Syringe) 2.5 ml FLUSH ASDIRECTED PRN PRN Reason: Keep Vein Open Last Admin: 04/02/21 07:05 Dose: 2.5 ml Documented by: Tramadol HCl (Tramadol 50 Mg Tab) 100 - 200 mg PO BID PRN PRN Reason: Pain Vancomycin HCl (Pharmacy To Dose - Vancomycin) 1 dose .XX ASDIRECTED [facility]
== END 2021-04-07 23:11 | disposition expired | DRG 871 ==
LOC: MW.ED 04:50 → MW.MS 06:52
PROVIDERS: ADMIT Student in an Organized Health Care Education/Training Program; ATTEND Student in an Organized Health Care Education/Training Program
DX: A41.9 Sepsis, unspecified organism (principal); J18.9 Pneumonia, unspecified organism; J96.21 Acute and chronic respiratory failure with hypoxia; J44.0 Chronic obstructive pulmonary disease with (acute) lower respiratory infection; J44.1 Chronic obstructive pulmonary disease with (acute) exacerbation; F03.91 Unspecified dementia, unspecified severity, with behavioral disturbance; C34.90 Malignant neoplasm of unspecified part of unspecified bronchus or lung; Z99.81 Dependence on supplemental oxygen; Z66 Do not resuscitate; Z20.822 Contact with and (suspected) exposure to COVID-19; Z51.5 Encounter for palliative care; I48.91 Unspecified atrial fibrillation; Z79.899 Other long term (current) drug therapy; H91.90 Unspecified hearing loss, unspecified ear; I25.2 Old myocardial infarction; I49.9 Cardiac arrhythmia, unspecified; Z85.118 Personal history of other malignant neoplasm of bronchus and lung; Z79.01 Long term (current) use of anticoagulants; Z98.890 Other specified postprocedural states; Z86.19 Personal history of other infectious and parasitic diseases; Z92.3 Personal history of irradiation; H54.7 Unspecified visual loss
CPT/HCPCS: 36415; 71045; 80053; 83036; 83605; 84484; 85025; 87040 ×2; 96365; 96375; 99285; J0696; J2930; U0002; 36600; 71275; 71275-26; 80048; 80202; 81001; 82803; 83615; 83735; 84100; 93005; 93010; 94640; 94667; 94668; 99221; 99232; 99233; 99238; A9270-GY; J0456; J1940; J1956; J2060; J2270; J2543; J2920; J3370; J7030; J7050; J7120; J7620-GY; Q9967